=== PATIENT | female | born 1935 | race Caucasian/White ===

== ENCOUNTER 2016-08-16 14:32 | Outpatient (RCR) | payer MEDICARE ==
[2016-08-16 14:09] LABS: BASOPHILS % (AUTO) 1 % (0-10); EOSINOPHILS # (AUTO) 0.4 10^3/uL (0.0-0.3); EOSINOPHILS % (AUTO) 6 % (0-10); LYMPHOCYTES # (AUTO) 1.1 X 10^3 (1.0-4.0); LYMPHOCYTES % (AUTO) 16 % (12-44); MEAN CORPUSCULAR HEMOGLOBIN 28 PG (25-34); MEAN CORPUSCULAR HGB CONC 32 G/DL (32-36); MEAN CORPUSCULAR VOLUME 90 FL (80-99); MEAN PLATELET VOLUME 10.2 FL (7.4-10.4); MONOCYTES # (AUTO) 0.8 X 10^3 (0.0-1.0); MONOCYTES % (AUTO) 11 % (0-12); NEUTROPHILS # (AUTO) 4.5 X 10^3 (1.8-7.8); NEUTROPHILS % (AUTO) 66 % (42-75); PLATELET COUNT 269 10^3/uL (130-400); RED BLOOD COUNT 3.77 10^6/uL (4.35-5.85); RED CELL DISTRIBUTION WIDTH 14.5 % (10.0-14.5); WHITE BLOOD COUNT 6.7 10^3/uL (4.3-11.0)
[2016-08-16 14:31] LABS: ALANINE AMINOTRANSFERASE 11 U/L (0-55); ALBUMIN 3.8 G/DL (3.2-4.5); ANION GAP 9 MMOL/L (5-14); ASPARTATE AMINO TRANSFERASE 16 U/L (5-34); BILIRUBIN,TOTAL 0.3 MG/DL (0.1-1.0); BLOOD UREA NITROGEN 18 MG/DL (7-18); BUN/CREATININE RATIO 25; CALCIUM 9.7 MG/DL (8.5-10.1); CARBON DIOXIDE 24 MMOL/L (21-32); CHLORIDE 109 MMOL/L (98-107); CREATININE SERUM 0.71 MG/DL (0.60-1.30); GFR ESTIMATED > 60; GLUCOSE 108 MG/DL (70-105); POTASSIUM 4.1 MMOL/L (3.6-5.0); SODIUM 142 MMOL/L (135-145); TOTAL PROTEIN 6.8 G/DL (6.4-8.2)
[~2016-08-16 14:32] MED LIST: ASPI-875 PO; ASPI325T32 PO; CALCIUM; CHOL5000 PO; D50KC PO; DENOSUMAB 60 MG/1 ML (PROLIA) CANCER CTR SQ SCH; LEVO125T PO; LISINOPRIL/HCTZ; LVT.112T PO; OMEP20CA12 PO; SERT100T8 PO; SULI200T4 PO; TAMO20TA2 PO; TERI202.4P SQ; VIT D PO; VIT D3 PO
--- OUTSIDE RECORDS SUMMARY | 2016-08-16 14:35 | XMS REPORT | Continuity of Care Document ---
Author Author [facility] Organization [facility] Address Unknown Phone Unavailable Care Team Providers Care Lead Housekeeper Name Role Phone DELONTE MALIN DO PCP Insurance Providers Payer Name Policy Number Subscriber Name Relationship [employer] [place] [id number] Gideon Barnett 17 Self / Same As Patient Advance Directives Directive Response Recorded Date/Time Advance Directives No 10/22/13 4:32pm Health Care Power of Electronic Sales And Service Technician No 10/22/13 4:32pm Organ Donor No 10/22/13 4:32pm Problems Medical Problems Problem Onset Date Status LOWER GASTROINTESTINAL BLEED Unknown Active Medications Medication Dose Route Sig Days/Qty Instructions Order Date Discontinued Date Status Tamoxifen Citrate 20 Mg PO DAILY 01/22/12 10/22/13 Discontinued Aspirin 325 Mg PO DAILY 01/22/12 10/22/13 Discontinued Levothyroxine Sodium 1 Each PO DAILY 01/22/12 10/22/13 Discontinued Sulindac 200 Mg PO DAILY 01/22/12 10/26/13 Discontinued Teriparatide 2.4 Ml SQ DAILY 01/22/12 10/22/13 Discontinued [Calcium] 1,200 TWICE A DAY 01/22/12 10/22/13 Discontinued [Vit D] 5,000 Units PO DIRECTED 01/22/12 10/22/13 Discontinued [Vit D3] 5,000 Units PO 01/22/12 10/22/13 Discontinued Aspirin 81 Mg PO DAILY 10/22/13 10/26/13 Discontinued Levothyroxine Sodium (Levothroid) 112 Mcg PO DAILY 02/13/14 Active Omeprazole 20 Mg PO DAILY 10/22/13 Active Ergocalciferol 50,000 Units PO Sundays10/22/13 Active Sertraline Hcl 50 Mg PO DAILY TAKES 1/2 (100MG) TABLET DAILY 10/22/13 Active Cholecalciferol 5,000 Unit PO DAILY 10/22/13 Active Social History Social History Problem Response Recorded Date/Time Alcohol Use Denies Use 10/22/2013 3:51pm Recreational Drug Use No 10/22/2013 3:51pm Recent Foreign Travel No 10/22/2013 3:51pm Recent Infectious Disease Exposure No 10/22/2013 3:51pm Hospitalization with Isolation Denies 10/26/2013 1:10pm Hospital Discharge Instructions No hospital discharge instructions. Plan of Care No plan of care. Functional Status No functional status results. Allergies, Adverse Reactions, Alerts Allergen Type Severity Reaction Status Last Updated Penicillins ([id number]) Allergy Active 06/28/10 lisinopril ([id number]) Allergy Active 06/28/10 sulfamethoxazole ([id number]) Allergy Active 06/28/10 Trimethoprim Allergy Active 06/28/10 Immunizations Name Given Type Date of Pneumonia Vaccine 06/09/10 Historical Date of Influenza Vaccine 08/10/13 Historical Vital Signs No known vital signs results. Results Test Source Date Result Interp. Ref. Range Comments Activated Partial Thromboplast Time June 28, 2010 10:40am 55 SEC H 24 -35 Alanine Aminotransferase (ALT/SGPT) January 13, 2014 8:59am 31 U/L N 30-65 Albumin January 13, 2014 8:59am 3.4 G/DL N 3.4-5.0 Alkaline Phosphatase January 13, 2014 8:59am 88 U/L N 50-136 Aspartate Amino Transf (AST/SGOT) January 13, 2014 8:59am 18 U/L N 15-37 BUN/Creatinine Ratio January 13, 2014 8:59am 28 - Basophils # (Auto) January 13, 2014 8:59am 0.0 10^3/uL N 0.0-0.1 Basophils (%) (Auto) January 13, 2014 8:59am 1 % N 0-10 Blood Urea Nitrogen January 13, 2014 8:59am 22 MG/DL H 7-18 C-Reactive Protein July 05, 2011 2:02pm 0.5 MG/DL N 0.2-0.9 CA 27.29 May 29, 2012 1:17pm 21.2 U/ML - Calcium Level January 13, 2014 8:59am 8.9 MG/DL N 8.5-10.1 Carbon Dioxide Level January 13, 2014 8:59am 28 MMOL/L N 21-32 Chloride Level January 13, 2014 8:59am 107 MMOL/L N 101-110 Creatinine January 13, 2014 8:59am 0.8 MG/DL N 0.6-1.3 Eosinophils # (Auto) January 13, 2014 8:59am 0.5 10^3/uL H 0.0-0.3 Eosinophils (%) (Auto) January 13, 2014 8:59am 8 % N 0-10 Erythrocyte Sedimentation Rate July 05, 2011 2:02pm 38 MM/HR H 0-30 Ferritin January 13, 2014 8:59am 77 NG/ML - Glucose Level January 13, 2014 8:59am 77 MG/DL N 74-106 Hematocrit January 13, 2014 8:59am 40 % N 35-52 Hemoglobin January 13, 2014 8:59am 13.1 G/DL N 11.5-16.0 Iron Level December 06, 2011 2:13pm 26 L UG/DL - Lymphocytes # (Auto) January 13, 2014 8:59am 1.1 X 10^3 N 1.0-4.0 Lymphocytes (%) (Auto) January 13, 2014 8:59am 17 % N 12-44 Mean Corpuscular Hemoglobin January 13, 2014 8:59am 30 PG N 25-34 Mean Corpuscular Hemoglobin Concent January 13, 2014 8:59am 33 G/DL N 32-36 Mean Corpuscular Volume January 13, 2014 8:59am 90 FL N 80-99 Mean Platelet Volume January 13, 2014 8:59am 10.3 FL N 7.4-10.4 Monocytes # (Auto) January 13, 2014 8:59am 0.8 X 10^3 N 0.0-1.0 Monocytes (%) (Auto) January 13, 2014 8:59am 13 % H 0-12 Neutrophils # (Auto) January 13, 2014 8:59am 3.9 X 10^3 N 1.8-7.8 Neutrophils (%) (Auto) January 13, 2014 8:59am 62 % N 42-75 Platelet Count January 13, 2014 8:59am 227 10^3/uL N 130-400 Potassium Level January 13, 2014 8:59am 4.3 MMOL/L N 3.6-5.0 Prothromb Time International Ratio June 24, 2010 5:50am 2.3 H 0.8- 1.4 INTERPRETIVE DATASUGGESTED THERAPEUTIC RANGE FOR INR'S : VENOUS THROMBOSIS, PULMONARY EMBOLISM, OR PREVENTION OF SYSTEMIC EMBOLISM (EG. IN ATRIAL FIBRILLATION): 2.0 - 3.0 MECHANICAL PROSTHETIC HEART VALVES: 2.5 - 3.5* *NOTE: INR'S UP TO 4.5 MAY BE NECESSARY IN SELECTED GROUPS OF HIGH RISK PATIENTS. [employer] CONSENSUS CONFERENCE ON ANTITHROMBOTIC THERAPY (2000). Prothrombin Time June 24, 2010 5:50am 25.0 SEC H 12.2-14.7 FAX RESULTS TO [facility] [phone] Rapid Plasma Reagin June 28, 2010 10:40am NR - Red Blood Count January 13, 2014 8:59am 4.38 10^6/uL N 4.35-5.85 Red Cell Distribution Width January 13, 2014 8:59am 15.6 % H 10.0-14.5 Sodium Level January 13, 2014 8:59am 142 MMOL/L N 135-145 Thyroid Stimulating Hormone (TSH) January 13, 2014 8:59am 27.92 UIU/ML H 0.34-5.60 Total Bilirubin January 13, 2014 8:59am 0.5 MG/DL N 0.0-1.0 Total Iron Binding Capacity December 06, 2011 2:13pm 378 UG/DL - Total Protein January 13, 2014 8:59am 7.3 G/DL N 6.4-8.2 Transferrin % Saturation December 06, 2011 2:13pm 7 L % - Urine Bacteria June 28, 2010 1:02pm MODERATE H - Has specimen been collected/obtained? YSpecimen Description CLEAN CATCH Urine Bilirubin June 28, 2010 1:02pm NEGATIVE - Has specimen been collected/obtained? YSpecimen Description CLEAN CATCH Urine Casts June 28, 2010 1:02pm NONE - Has specimen been collected/obtained? YSpecimen Description CLEAN CATCH Urine Clarity June 28, 2010 1:02pm SLIGHTLY CLOUDY - Has specimen been collected/obtained? YSpecimen Description CLEAN CATCH Urine Color June 28, 2010 1:02pm YELLOW - Has specimen been collected/obtained? YSpecimen Description CLEAN CATCH Urine Crystals June 28, 2010 1:02pm NONE - Has specimen been collected/obtained? YSpecimen Description CLEAN CATCH Urine Culture Indicated June 28, 2010 1:02pm YES - Has specimen been collected/obtained? YSpecimen Description CLEAN CATCH Urine Glucose (UA) June 28, 2010 1:02pm NEGATIVE - Has specimen been collected/obtained? YSpecimen Description CLEAN CATCH Urine Ketones June 28, 2010 1:02pm NEGATIVE - Has specimen been collected/obtained? YSpecimen Description CLEAN CATCH Urine Leukocyte Esterase June 28, 2010 1:02pm 1+ H - Has specimen been collected/obtained? YSpecimen Description CLEAN CATCH Urine Mucus June 28, 2010 1:02pm NEGATIVE - Has specimen been collected/obtained? YSpecimen Description CLEAN CATCH Urine Nitrite June 28, 2010 1:02pm POSITIVE H - Has specimen been collected/obtained? YSpecimen Description CLEAN CATCH Urine Protein June 28, 2010 1:02pm NEGATIVE - Has specimen been collected/obtained? YSpecimen Description CLEAN CATCH Urine RBC June 28, 2010 1:02pm NONE /HPF - Has specimen been collected/obtained? YSpecimen Description CLEAN CATCH Urine Specific Carrier June 28, 2010 1:02pm 1.020 - Has specimen been collected/obtained? YSpecimen Description CLEAN CATCH Urine Urobilinogen June 28, 2010 1:02pm NORMAL MG/DL - Has specimen been collected/obtained? YSpecimen Description CLEAN CATCH Urine WBC June 28, 2010 1:02pm TNTC /HPF H - Has specimen been collected/obtained? YSpecimen Description CLEAN CATCH Urine pH June 28, 2010 1:02pm 5.0 - Has specimen been collected/ obtained? YSpecimen Description CLEAN CATCH Vitamin D 1,25-Dihydroxy November 30, 2010 10:45am 77 H PG/ML - This test was developed and its performance characteristicsdetermined by [facility]. The U.S. Food and Drug Administration has not approved or cleared this test; however, FDA clearance or approval is not currently required for clinical use. The results are not intended to be used as the sole means for clinical diagnosis or patient management decisions. TEST INFORMATION: VITAMIN D, 1,25-Dihydroxy This test is primarily indicated during patient evaluation for hypercalcemia and renal failure. A normal result does not rule out Vitamin D deficiency. The recommended test for diagnosing Vitamin D deficiency is Vitamin D 25-hydroxy ([id number]). Performed by [facility], [facility] [place] [address] www.[email or web address], Jenelle Chaudhary MD - Lab. Director Vitamin D 25-Hydroxy July 05, 2011 2:02pm 37 NG/ML - White Blood Count January 13, 2014 8:59am 6.3 10^3/uL N 4.3-11.0 Lab Scanned Report October 27, 2013 1:03pm Transfusion Reaction Form [id number] - Estimat Glomerular Filtration Rate January 13, 2014 8:59am > 60 - GFR INTERPRETIVE DATA UNITS FOR ESTIMATED GFR (eGFR): mL/min/1.73 M2 REFERENCE RANGE FOR ESTIMATED GFR (eGFR) eGFR NORMAL eGFR >60 MODERATELY DECREASED eGFR 30-59 SEVERLY DECREASED eGFR 15-29 KIDNEY FAILURE <15 (OR DIALYSIS) Urine RBC (Auto) June 28, 2010 1:02pm 1+ H - Has specimen been collected/obtained? YSpecimen Description CLEAN CATCH MRSA Screen Nasal June 16, 2012 9:45am MRSA not isolated Urine Culture Urine-Clean Catch June 28, 2010 1:02pm Escherichia Coli Procedures No known history of procedures. Encounters Encounter Location Date/Time Discharged Recurring Via [facility] 03/10/14 9:41am
== END 2016-11-14 | disposition home or self-care (01) ==
LOC: ONC 14:32
PROVIDERS: ATTEND Internal Medicine Hematology & Oncology
DX: Z08 Encounter for follow-up examination after completed treatment for malignant neoplasm (principal); Z85.3 Personal history of malignant neoplasm of breast; M81.0 Age-related osteoporosis without current pathological fracture; D50.0 Iron deficiency anemia secondary to blood loss (chronic); K57.92 Diverticulitis of intestine, part unspecified, without perforation or abscess without bleeding; Q27.30 Arteriovenous malformation, site unspecified; K12.1 Other forms of stomatitis; Z79.899 Other long term (current) drug therapy; Z92.3 Personal history of irradiation
CPT/HCPCS: 36415; 80053; 82728; 85025; 96372; 99213

== ENCOUNTER 2017-03-27 14:53 | Outpatient (RCR) | payer MEDICARE ==
[2017-02-22 10:58] LABS: BASOPHILS % (AUTO) 0 % (0-10); EOSINOPHILS # (AUTO) 0.4 10^3/uL (0.0-0.3); EOSINOPHILS % (AUTO) 6 % (0-10); LYMPHOCYTES # (AUTO) 1.3 X 10^3 (1.0-4.0); LYMPHOCYTES % (AUTO) 18 % (12-44); MEAN CORPUSCULAR HEMOGLOBIN 26 PG (25-34); MEAN CORPUSCULAR HGB CONC 31 G/DL (32-36); MEAN CORPUSCULAR VOLUME 85 FL (80-99); MEAN PLATELET VOLUME 10.9 FL (7.4-10.4); MONOCYTES # (AUTO) 0.7 X 10^3 (0.0-1.0); MONOCYTES % (AUTO) 10 % (0-12); NEUTROPHILS # (AUTO) 4.6 X 10^3 (1.8-7.8); NEUTROPHILS % (AUTO) 65 % (42-75); PLATELET COUNT 273 10^3/uL (130-400); RED BLOOD COUNT 3.78 10^6/uL (4.35-5.85); RED CELL DISTRIBUTION WIDTH 14.6 % (10.0-14.5)
[2017-02-22 11:19] LABS: ALANINE AMINOTRANSFERASE 13 U/L (0-55); ALBUMIN 3.9 GM/DL (3.2-4.5); ANION GAP 9 MMOL/L (5-14); ASPARTATE AMINO TRANSFERASE 19 U/L (5-34); BILIRUBIN,TOTAL 0.5 MG/DL (0.1-1.0); BLOOD UREA NITROGEN 21 MG/DL (7-18); BUN/CREATININE RATIO 27 (0-20); CALCIUM 9.8 MG/DL (8.5-10.1); CARBON DIOXIDE 25 MMOL/L (21-32); CHLORIDE 109 MMOL/L (98-107); CREATININE SERUM 0.77 MG/DL (0.60-1.30); GFR ESTIMATED > 60; GLUCOSE 95 MG/DL (70-105); POTASSIUM 4.2 MMOL/L (3.6-5.0); SODIUM 143 MMOL/L (135-145); TOTAL PROTEIN 7.2 GM/DL (6.4-8.2)
[~2017-03-27 14:53] MED LIST changes: +FERRIC CARBOXYMALTOSE (CANCER) 750 MG in NS (IVPB) CANCER CENTER 250 ML IV SCH
[2017-05-14] MEDS ORDERED: ASPI-983 PO (12:09)
[2017-05-14] MEDS ORDERED: LEVO200T6 PO (12:09)
[2017-05-14] MEDS ORDERED: SULI200T4 PO (12:11)
[2017-05-14] MEDS ORDERED: ALBU2.5V4 NEB (12:13)
[2017-05-14] MEDS ORDERED: RT-ALBUINH INH (12:13)
[2017-05-16] MEDS ORDERED: PANT40TA3 PO (12:55)
== END 2017-05-23 | disposition home or self-care (01) ==
LOC: ONC 14:53
PROVIDERS: ATTEND Internal Medicine Hematology & Oncology
DX: Z08 Encounter for follow-up examination after completed treatment for malignant neoplasm (principal); Z85.3 Personal history of malignant neoplasm of breast; M81.0 Age-related osteoporosis without current pathological fracture; D50.0 Iron deficiency anemia secondary to blood loss (chronic); K57.92 Diverticulitis of intestine, part unspecified, without perforation or abscess without bleeding; Q27.30 Arteriovenous malformation, site unspecified; K12.1 Other forms of stomatitis; Z79.899 Other long term (current) drug therapy; Z92.3 Personal history of irradiation
CPT/HCPCS: 36415; 80053; 82728; 85025; 96365; 96372

== ENCOUNTER 2017-05-13 08:58 | Inpatient (IN) | payer MEDICARE ==
[~2017-05-13] VITALS: Ht 160 cm; Wt 58.5 kg
[~2017-05-13 08:58] MED LIST changes: -DENOSUMAB 60 MG/1 ML (PROLIA) CANCER CTR SQ SCH; -FERRIC CARBOXYMALTOSE (CANCER) 750 MG in NS (IVPB) CANCER CENTER 250 ML IV SCH
[2017-05-14] VITALS: BP 138/65
[2017-05-14 00:10] LABS: BASOPHILS % (AUTO) 0 % (0-10); EOSINOPHILS # (AUTO) 0.1 10^3/uL (0.0-0.3); EOSINOPHILS % (AUTO) 1 % (0-10); LYMPHOCYTES # (AUTO) 0.7 X 10^3 (1.0-4.0); LYMPHOCYTES % (AUTO) 6 % (12-44); MEAN CORPUSCULAR HEMOGLOBIN 28 PG (25-34); MEAN CORPUSCULAR HGB CONC 32 G/DL (32-36); MEAN CORPUSCULAR VOLUME 87 FL (80-99); MEAN PLATELET VOLUME 10.4 FL (7.4-10.4); MONOCYTES # (AUTO) 0.7 X 10^3 (0.0-1.0); MONOCYTES % (AUTO) 6 % (0-12); NEUTROPHILS # (AUTO) 10.2 X 10^3 (1.8-7.8); NEUTROPHILS % (AUTO) 87 % (42-75); PLATELET COUNT 214 10^3/uL (130-400); RED BLOOD COUNT 3.79 10^6/uL (4.35-5.85); RED CELL DISTRIBUTION WIDTH 18.2 % (10.0-14.5); WHITE BLOOD COUNT 11.8 10^3/uL (4.3-11.0)
[2017-05-14] MEDS: NS IV 1000 ML 1,000 ML IV SCH ×4 (00:23→20:00)
[2017-05-14 00:29] LABS: BAND NEUTROPHILS 0 %; BASOPHILS % (MANUAL) 0 %; EOSINOPHILS % (MANUAL) 0 %; LYMPHOCYTES % (MANUAL) 5 %; NEUTROPHILS % (MANUAL) 91 %
[2017-05-14 00:30] LABS: ANISOCYTOSIS MODERATE; HYPOCHROMASIA SLIGHT
[2017-05-14 04:00] VITALS: BP 134/61
[2017-05-14 05:34] LABS: BASOPHILS % (AUTO) 0 % (0-10); EOSINOPHILS # (AUTO) 0.2 10^3/uL (0.0-0.3); EOSINOPHILS % (AUTO) 3 % (0-10); LYMPHOCYTES % (AUTO) 15 % (12-44); MEAN CORPUSCULAR HEMOGLOBIN 28 PG (25-34); MEAN CORPUSCULAR HGB CONC 32 G/DL (32-36); MEAN CORPUSCULAR VOLUME 89 FL (80-99); MONOCYTES # (AUTO) 0.6 X 10^3 (0.0-1.0); MONOCYTES % (AUTO) 9 % (0-12); NEUTROPHILS % (AUTO) 73 % (42-75); PLATELET COUNT 186 10^3/uL (130-400); RED CELL DISTRIBUTION WIDTH 18.3 % (10.0-14.5); WHITE BLOOD COUNT 6.9 10^3/uL (4.3-11.0)
[2017-05-14 05:55] LABS: ALANINE AMINOTRANSFERASE 12 U/L (0-55); ALBUMIN 3.1 GM/DL (3.2-4.5); ANION GAP 5 MMOL/L (5-14); ASPARTATE AMINO TRANSFERASE 15 U/L (5-34); BILIRUBIN,TOTAL 0.4 MG/DL (0.1-1.0); BLOOD UREA NITROGEN 20 MG/DL (7-18); BUN/CREATININE RATIO 31; CARBON DIOXIDE 25 MMOL/L (21-32); CHLORIDE 111 MMOL/L (98-107); CREATININE SERUM 0.64 MG/DL (0.60-1.30); GFR ESTIMATED > 60; GLUCOSE 94 MG/DL (70-105); POTASSIUM 4.1 MMOL/L (3.6-5.0); SODIUM 141 MMOL/L (135-145); TOTAL PROTEIN 5.4 GM/DL (6.4-8.2)
[2017-05-14 08:00] VITALS: BP 150/77
[2017-05-14] MEDS: PANTOPRAZOLE 40 MG/10 ML (PROTONIX) VIAL IV SCH ×2 (10:15→20:00)
[2017-05-14 12:06] VITALS: BP 127/57
[2017-05-14] MEDS ORDERED: ASPI-983 PO (12:09)
[2017-05-14] MEDS ORDERED: LEVO200T6 PO (12:09)
[2017-05-14] MEDS ORDERED: SULI200T4 PO (12:11)
[2017-05-14] MEDS ORDERED: RT-ALBUINH INH (12:13)
[2017-05-14] MEDS ORDERED: ALBU2.5V4 NEB (12:13)
[2017-05-14] MEDS ORDERED: RT-ALBUTEROL HFA (VENTOLIN) PER PUFF IH PRN (12:45)
[2017-05-14] MEDS ORDERED: RT-ALBUTEROL SULF 2.5 MG/3 ML PRE-MIX VIAL IH PRN (12:45)
--- NOTE | 2017-05-14 12:48 | History & Physical-Hospitalist ---
HPI History of Present Illness: HPI/Chief Complaint The patient is an 82-year-old white female transferred from [facility] by her physician Dr. Yordy Sevilla. He called me through the hospitalist line reporting that she had appeared with a complaint of bloody stools and a near syncopal episode. His labs showed the hemoglobin to be 12.4. She was accepted in transfer. She was subsequently found to have a hemoglobin of 10.9 last night and 9.1 this morning. She reports urgent stools with bright red blood and clots. She has a past history of diverticular bleed. She takes aspirin but no other blood thinner. Source: patient Exam Limitations: no limitations Date Seen 05/14/17 Time Seen by Provider: 12:44 Attending Physician Erik Jean MD PCP Yordy Sevilla DO Referring Physician Date of Admission May 13, 2017 at 23:10 Home Medications & Allergies Home Medications Reviewed patient Home Medication Reconciliation Form Allergies Allergies Coded Allergies Penicillins (Unverified Allergy, Unknown, 08/16/16) lisinopril (Unverified Allergy, Unknown, 08/16/16) sulfamethoxazole (Unverified Allergy, Unknown, 08/16/16) trimethoprim (Unverified Allergy, Unknown, 08/16/16) Past Mvyalbd-Ykizdz-Tgborw Hx Patient Social History Alcohol Use: Denies Use Recreational Drug Use: No Smoking Status: Never a Smoker Physical Abuse Screen: No Sexual Abuse: No Recent Foreign Travel: No Contact w/other who traveled: No Recent Hopitalizations: No Recent Infectious Disease Expo: No Immunizations Up To Date Date of Pneumonia Vaccine: Jun 09, 2010 Date of Influenza Vaccine: Aug 10, 2013 Seasonal Allergies Seasonal Allergies: No Surgeries Yes Orthopedic Respiratory Yes (ASTHMA) Cardiovascular Yes (STENTS) Neurological No Reproductive System Hx Reproductive Disorders: No Genitourinary Kidney Stones Gastrointestinal Yes (HIATAL HERNIA) Hiatal Hernia Musculoskeletal Yes Arthritis Endocrine History of Endocrine Disorders: Yes Endocrine Disorders: Hypothyroidsim HEENT History of HEENT Disorders: Yes HEENT Disorders: Cataract Cancer Yes Breast Psychosocial History of Psychiatric Problem: No Integumentary History of Skin or Integumenta: No Blood Transfusions History of Blood Disorders: No Family Medical History Family Hx: Cancer 03 FATHER, Onset:50's - 60 Cancer of colon 03 MOTHER, Onset:50's - 60 Cataract 03 FATHER 03 MOTHER, Onset:50's - 60 Review of Systems Constitutional: see HPI EENTM: no symptoms reported Respiratory: short of breath, wheezing, other (uses bronchodilators) Cardiovascular: no symptoms reported Gastrointestinal: see HPI, diarrhea, other (hematochezia) Genitourinary: no symptoms reported Musculoskeletal: no symptoms reported Skin: no symptoms reported Psychiatric/Neurological: No Symptoms Reported Physical Exam Physical Exam Vital Signs Vital Sign - Last 12Hours 05/13/17 05/14/17 22:55 00:00 Temp 97.2 Pulse 103 Resp 18 B/P (MAP) 138/65 Pulse Ox 91 O2 Delivery Nasal Cannula O2 Flow Rate 2.00 Capillary Refill : General Appearance: No Apparent Distress, WD/WN Eyes: Bilateral Eye Normal Inspection HEENT: Normal ENT Inspection Neck: Full Range of Motion, Normal Inspection Respiratory: Chest Non Tender, Lungs Clear, Normal Breath Sounds, No Accessory Muscle Use, No Respiratory Distress Cardiovascular: Regular Rate, Rhythm, No Edema, No Gallop, No JVD, No Murmur, Normal Peripheral Pulses Gastrointestinal: Normal Bowel Sounds, No Organomegaly, Non Tender Back: Normal Inspection, No CVA Tenderness, No Vertebral Tenderness Extremity: Normal Capillary Refill, Normal Inspection, Normal Range of Motion, Non Tender, No Calf Tenderness, No Pedal Edema Neurologic/Psychiatric: Alert, Oriented x3, No Motor/Sensory Deficits, Normal Mood/Affect Skin: Normal Color, Warm/Dry Lymphatic: No Adenopathy Results Results/Procedures Lab Laboratory Tests 05/13/17 23:59 05/14/17 05:13 Assessment/Plan Admission Diagnosis 1.hematochezia. 2.past history of diverticular bleeding. 3.COPD Clinical Quality Measures DVT/VTE Risk/Contraindication: Risk Factor Score Per Nursin RFS Level Per Nursing on Admit: 4+=Very High ERIK JEAN MD May 14, 2017 12:48
[2017-05-14] MEDS: SERTRALINE 50 MG (ZOLOFT) TABLET PO SCH (13:51)
--- NOTE | 2017-05-14 14:57 | Consultation ---
History of Present Illness History of Present Illness Patient Consulted On(rojelio/time) 05/14/17 07:51 Date Seen by Provider: May 14, 2017 Time Seen by Provider: 07:50 History of Present Illness consult requested by dr Wakefield for gi bleed patient 82 year old female who yesterday began having bright red blood in stool. She went to [facility] and evaluated. Found to have + Hemoccult stool and had syncopal episode of about 20-30 minutes. 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 She is not having any abdominal pain. Denies any nausea vomiting fever sweats chills shortness of breath or chest pain. Her blood pressure was reported as 80's systolic. Her Hgb was in the 12 range at [facility]. She had a ct scan abdomen and pelvis which demonstrated adnexal cyst, hiatal hernia, diverticulosis, kidney stone nonobstructing, no acute significant findings. Patient at this time is feeling better, not having any dizziness or weakness at this time. Allergies and Home Medications Allergies Coded Allergies: Penicillins (Unverified Allergy, Unknown, 08/16/16) lisinopril (Unverified Allergy, Unknown, 08/16/16) sulfamethoxazole (Unverified Allergy, Unknown, 08/16/16) trimethoprim (Unverified Allergy, Unknown, 08/16/16) Home Medications Albuterol Sulfate 2.5 Mg/3 Ml Vial.neb, 2.5 MG NEB Q4H PRN for SHORTNESS OF BREATH, (Reported) Albuterol Sulfate 1 Puff Puff, 2 PUFF INH Q4H PRN for SHORTNESS OF BREATH, ( Reported) Aspirin 81 Mg Tablet.dr, 81 MG PO DAILY, (Reported) Cholecalciferol 5,000 Unit Capsule, 5,000 UNIT PO DAILY, (Reported) Levothyroxine Sodium 200 Mcg Tablet, 200 MCG PO DAILY, (Reported) Sertraline Hcl 100 Mg Tablet, 50 MG PO DAILY, (Reported) TAKES 1/2 (100MG) TABLET DAILY Sulindac 200 Mg Tablet, 200 MG PO DAILY, (Reported) Past Zihurjo-Dkqpjm-Gvcqil Hx Patient Social History Alcohol Use: Denies Use Recreational Drug Use: No Smoking Status: Never a Smoker Recent Foreign Travel: No Contact w/Someone Who Travel: No Recent Infectious Disease Expo: No Recent Hopitalizations: No Physical Abuse Screen: No Sexual Abuse: No Immunizations Up To Date Date of Pneumonia Vaccine: Jun 09, 2010 Date of Influenza Vaccine: Aug 10, 2013 Seasonal Allergies Seasonal Allergies: No Surgeries History of Surgeries: Yes Surgeries: Orthopedic Respiratory History of Respiratory Disorde: Yes (ASTHMA) Respiratory Disorders: Pulmonary Embolism Cardiovascular History of Cardiac Disorders: Yes (STENTS) Neurological History of Neurological Disord: No Reproductive System Hx Reproductive Disorders: No Genitourinary Genitourinary Disorders: Kidney Stones Gastrointestinal History of Gastrointestinal Di: Yes (HIATAL HERNIA) Gastrointestinal Disorders: Hiatal Hernia Musculoskeletal History of Musculoskeletal Dis: Yes Musculoskeletal Disorders: Arthritis Endocrine History of Endocrine Disorders: Yes Endocrine Disorders: Hypothyroidsim HEENT History of HEENT Disorders: Yes HEENT Disorders: Cataract Cancer History of Cancer: Yes Cancer: Breast Psychosocial History of Psychiatric Problem: No Integumentary History of Skin or Integumenta: No Blood Transfusions History of Blood Disorders: No Family Medical History Significant Family History: No Pertinent Family Hx Family Medial History: Cancer 03 FATHER, Onset:50's - 60 Cancer of colon 03 MOTHER, Onset:50's - 60 Cataract 03 FATHER 03 MOTHER, Onset:50's - 60 Review of Systems-General Constitutional: see HPI EENTM: no symptoms reported Respiratory: no symptoms reported Cardiovascular: no symptoms reported Gastrointestinal: see HPI Musculoskeletal: no symptoms reported Skin: no symptoms reported Psychiatric/Neurological: No Symptoms Reported Physical Exam-General Problems Physical Exam Vital Signs Vital Sign - Last 12Hours 05/13/17 05/14/17 22:55 00:00 Temp 97.2 Pulse 103 Resp 18 B/P (MAP) 138/65 Pulse Ox 91 O2 Delivery Nasal Cannula O2 Flow Rate 2.00 Capillary Refill : General Appearance: no apparent distress HEENT: normal ENT inspection Neck: supple Respiratory: no respiratory distress, no accessory muscle use Cardiovascular: regular rate, rhythm Gastrointestinal: non tender, soft, no organomegaly, no pulsatile mass Rectal: deferred Back: normal inspection Extremities: normal range of motion, non-tender Neurologic/Psychiatric: alert, normal mood/affect, oriented x 3 Data Review Labs Laboratory Tests 05/13/17 23:59: White Blood Count 11.8H, Red Blood Count 3.79L, Hemoglobin 10.7L, Hematocrit 33L , Mean Corpuscular Volume 87, Mean Corpuscular Hemoglobin 28, Mean Corpuscular Hemoglobin Concent 32, Red Cell Distribution Width 18.2H, Platelet Count 214, Mean Platelet Volume 10.4, Neutrophils (%) (Auto) 87H, Lymphocytes (%) (Auto) 6L , Monocytes (%) (Auto) 6, Eosinophils (%) (Auto) 1, Basophils (%) (Auto) 0, Neutrophils # (Auto) 10.2H, Lymphocytes # (Auto) 0.7L, Monocytes # (Auto) 0.7, Eosinophils # (Auto) 0.1, Basophils # (Auto) 0.0, Neutrophils % (Manual) 91, Lymphocytes % (Manual) 5, Monocytes % (Manual) 4, Eosinophils % (Manual) 0, Basophils % (Manual) 0, Band Neutrophils 0, Hypochromasia SLIGHT, Anisocytosis MODERATE, Elliptocytes SLIGHT 05/14/17 05:13: White Blood Count 6.9, Red Blood Count 3.20L, Hemoglobin 9.1L, Hematocrit 28L, Mean Corpuscular Volume 89, Mean Corpuscular Hemoglobin 28, Mean Corpuscular Hemoglobin Concent 32, Red Cell Distribution Width 18.3H, Platelet Count 186, Mean Platelet Volume 11.0H, Neutrophils (%) (Auto) 73, Lymphocytes (%) (Auto) 15 , Monocytes (%) (Auto) 9, Eosinophils (%) (Auto) 3, Basophils (%) (Auto) 0, Neutrophils # (Auto) 5.0, Lymphocytes # (Auto) 1.0, Monocytes # (Auto) 0.6, Eosinophils # (Auto) 0.2, Basophils # (Auto) 0.0, Sodium Level 141, Potassium Level 4.1, Chloride Level 111H, Carbon Dioxide Level 25, Anion Gap 5, Blood Urea Nitrogen 20H, Creatinine 0.64, Estimat Glomerular Filtration Rate > 60, BUN /Creatinine Ratio 31, Glucose Level 94, Calcium Level 8.0L, Total Bilirubin 0.4 , Aspartate Amino Transf (AST/SGOT) 15, Alanine Aminotransferase (ALT/SGPT) 12, Alkaline Phosphatase 66, Total Protein 5.4L, Albumin 3.1L 05/14/17 11:28: Stool Occult Blood Immunoassay POSITIVEH Assessment/Plan Assessment/Plan Assessment/Plan GI bleed- likely lower. Syncopal episode Anemia secondary to GI bleed Clear liquids follow hgb transfuse prn rbc Protonix Iv fluids Will continue to follow hgb, may need endoscopy to further evaluate. Clinical Quality Measures DVT/VTE Risk/Contraindication: Risk Factor Score Per Nursin RFS Level Per Nursing on Admit: 4+=Very High THERON QUIROZ DO May 14, 2017 14:57
[2017-05-14 15:57] VITALS: BP 148/74
[2017-05-14 18:11] LABS: MEAN PLATELET VOLUME 10.7 FL (7.4-10.4); RED BLOOD COUNT 3.18 10^6/uL (4.35-5.85); RED CELL DISTRIBUTION WIDTH 18.4 % (10.0-14.5); WHITE BLOOD COUNT 7.2 10^3/uL (4.3-11.0)
[2017-05-14 19:51] VITALS: BP 128/57
[2017-05-14] MEDS: ACETAMINOPHEN 500 MG TAB (TYLENOL) PO PRN (21:43)
[2017-05-15] VITALS (12 sets, daily range): BP systolic 134–153; BP diastolic 58–72
[2017-05-15 01:06] LABS: MEAN PLATELET VOLUME 10.8 FL (7.4-10.4); RED BLOOD COUNT 2.64 10^6/uL (4.35-5.85); RED CELL DISTRIBUTION WIDTH 18.4 % (10.0-14.5); WHITE BLOOD COUNT 6.4 10^3/uL (4.3-11.0)
[2017-05-15] MEDS: VITAMIN D3 5,000 UNITS (CHOLECALCIFEROL ) CAPSULE PO SCH (06:19)
[2017-05-15] MEDS: PANTOPRAZOLE 40 MG/10 ML (PROTONIX) VIAL IV SCH ×2 (08:13→20:34)
[2017-05-15] MEDS: SERTRALINE 50 MG (ZOLOFT) TABLET PO SCH (08:13)
[2017-05-15 08:32] LABS: MEAN PLATELET VOLUME 10.8 FL (7.4-10.4); RED BLOOD COUNT 3.78 10^6/uL (4.35-5.85); RED CELL DISTRIBUTION WIDTH 17.4 % (10.0-14.5); WHITE BLOOD COUNT 7.1 10^3/uL (4.3-11.0)
[2017-05-15] MEDS ORDERED: GOLYTELY POWDER 4000 ML BTL PO NR (10:36)
--- NOTE | 2017-05-15 11:02 | Progress Note-Hospitalist ---
Progress Note HPI/CC on Admission The patient is an 82-year-old white female transferred from [facility] by her physician Dr. Yordy Sevilla. He called me through the hospitalist line reporting that she had appeared with a complaint of bloody stools and a near syncopal episode. His labs showed the hemoglobin to be 12.4. She was accepted in transfer. She was subsequently found to have a hemoglobin of 10.9 last night and 9.1 this morning. She reports urgent stools with bright red blood and clots. She has a past history of diverticular bleed. She takes aspirin but no other blood thinner. Progress Notes/Assess & Plan Date Seen 05/15/17 Time Seen by Provider: 10:30 Diagonsis/Assessment & Plan Pt doing better overall Hungry and plans for scopes tomorrow by Dr Wolfe. Denies any pain Had an amount of bright red blood per rectum and melena today in the toilet No cramping noted Receive 2 units of packed red blood cells yesterday without difficulty and hemoglobin stable currently On PPI IV No fever, vital signs stable, pleasant, improved, frail Regular rate and rhythm, clear to auscultation bilaterally but diminished all ojeda and wheezing is noted in the upper lobes No edema Laboratory Tests 05/14/17 18:05 05/15/17 00:42 05/15/17 08:20 Assessment: Acute GI bleed received 2 units of packed red blood cells without difficulties hemoglobin stable currently on PPI IV and scope scheduled for tomorrow History of asthma on inhalers and nebulizer treatments at home we'll restart nebulizer treatments due to wheezing on exam Hypothyroidism Osteoarthritis Plan: Endoscopy tomorrow Monitor hemoglobin Check CMP in morning Home O2 evaluate tomorrow Nebulizer treatments Incentive spirometer DILCIA LAURA DO May 15, 2017 11:02
[2017-05-15 13:46] LABS: MEAN PLATELET VOLUME 10.9 FL (7.4-10.4); RED BLOOD COUNT 3.91 10^6/uL (4.35-5.85); RED CELL DISTRIBUTION WIDTH 17.4 % (10.0-14.5); WHITE BLOOD COUNT 7.4 10^3/uL (4.3-11.0)
[2017-05-15] MEDS: RT-ALBUTEROL/IPRATROPIUM 3 ML (DUONEB) VIAL INH SCH ×3 (14:03→19:45)
[2017-05-15] MEDS: NS IV 1000 ML 1,000 ML IV SCH ×4 (14:57→20:39)
[2017-05-15 18:02] LABS: MEAN PLATELET VOLUME 11.2 FL (7.4-10.4); RED BLOOD COUNT 4.07 10^6/uL (4.35-5.85); RED CELL DISTRIBUTION WIDTH 17.4 % (10.0-14.5); WHITE BLOOD COUNT 7.9 10^3/uL (4.3-11.0)
--- NOTE | 2017-05-15 18:07 | Progress Note ---
Subjective Date Seen by Provider: May 15, 2017 Time Seen by Provider: 08:30 Subjective/Events-last exam Patient feeling well. No new complaints. Still with some bloody bm but less. No syncope. Denies fever sweats chills shortness of breath or chest pain. Following hgb Objective Exam Vital Signs Date Time Temp Pulse Resp B/P (MAP) Pulse Ox O2 Delivery O2 Flow Rate FiO2 05/15/17 16:18 96.9 69 18 138/63 98 Nasal Cannula 2.00 05/15/17 14:54 99 Nasal Cannula 3.00 05/15/17 12:00 98.6 64 18 148/72 Nasal Cannula 2.50 05/15/17 09:00 Nasal Cannula 2.00 05/15/17 08:05 97.9 67 18 134/65 97 Nasal Cannula 2.00 05/15/17 08:00 97.9 67 20 134/65 97 Nasal Cannula 2.50 05/15/17 07:52 Nasal Cannula 3.00 05/15/17 06:10 98.5 70 16 139/70 96 Nasal Cannula 2.00 05/15/17 05:53 98.3 65 18 137/71 100 Nasal Cannula 2.00 05/15/17 05:26 98.3 64 16 153/67 100 Nasal Cannula 2.50 05/15/17 04:00 98.3 62 19 153/67 100 Nasal Cannula 2.50 05/15/17 03:20 99.8 61 16 139/59 100 Nasal Cannula 2.50 05/15/17 02:59 99.6 65 18 141/58 100 Nasal Cannula 2.50 05/15/17 00:00 96.7 76 18 134/58 98 Nasal Cannula 3.00 05/14/17 21:00 Nasal Cannula 4.00 05/14/17 19:51 97.8 72 20 128/57 97 Room Air I & O 05/16/17 07:00 Intake Total 2760 ml Output Total 1050 ml Balance 1710 ml Capillary Refill : Less Than 3 Seconds General Appearance: No Apparent Distress, WD/WN HEENT: Normal ENT Inspection Neck: Full Range of Motion, Normal Inspection Respiratory: Chest Non Tender, Lungs Clear, Normal Breath Sounds, No Accessory Muscle Use, No Respiratory Distress Cardiovascular: Regular Rate, Rhythm, No Edema, No Gallop, No JVD, No Murmur, Normal Peripheral Pulses Gastrointestinal: non tender, soft, no organomegaly, no pulsatile mass Extremity: Normal Capillary Refill, Normal Inspection, Normal Range of Motion, Non Tender, No Calf Tenderness Neurologic/Psychiatric: Alert, Oriented x3, No Motor/Sensory Deficits, Normal Mood/Affect Skin: Normal Color, Warm/Dry Lymphatic: No Adenopathy Results Lab Laboratory Tests 05/15/17 00:42: White Blood Count 6.4, Red Blood Count 2.64L, Hemoglobin 7.4L, Hematocrit 24L, Mean Corpuscular Volume 91, Mean Corpuscular Hemoglobin 28, Mean Corpuscular Hemoglobin Concent 31L, Red Cell Distribution Width 18.4H, Platelet Count 165, Mean Platelet Volume 10.8H 05/15/17 08:20: White Blood Count 7.1, Red Blood Count 3.78L, Hemoglobin 10.9#L, Hematocrit 34L , Mean Corpuscular Volume 89, Mean Corpuscular Hemoglobin 29, Mean Corpuscular Hemoglobin Concent 32, Red Cell Distribution Width 17.4H, Platelet Count 174, Mean Platelet Volume 10.8H 05/15/17 13:39: White Blood Count 7.4, Red Blood Count 3.91L, Hemoglobin 11.4L, Hematocrit 35, Mean Corpuscular Volume 89, Mean Corpuscular Hemoglobin 29, Mean Corpuscular Hemoglobin Concent 33, Red Cell Distribution Width 17.4H, Platelet Count 162, Mean Platelet Volume 10.9H 05/15/17 17:02: Lab Scanned Report Transfusion Reaction Form 05/15/17 17:55: White Blood Count 7.9, Red Blood Count 4.07L, Hemoglobin 11.7, Hematocrit 36, Mean Corpuscular Volume 89, Mean Corpuscular Hemoglobin 29, Mean Corpuscular Hemoglobin Concent 32, Red Cell Distribution Width 17.4H, Platelet Count 170, Mean Platelet Volume 11.2H Assessment/Plan Assessment/Plan Assessment/Plan GI bleed- likely lower. Syncopal episode Anemia secondary to GI bleed prep for egd/colonoscopy tomorrow Clinical Quality Measures DVT/VTE Risk/Contraindication: Risk Factor Score Per Nursin RFS Level Per Nursing on Admit: 4+=Very High THERON QUIROZ DO May 15, 2017 18:07
[2017-05-15] MEDS ORDERED: CALCIUM CARBONATE 500 MG (TUMS) TAB.CHEW PO PRN (20:00)
[2017-05-15] MEDS: ACETAMINOPHEN 500 MG TAB (TYLENOL) PO PRN (22:49)
[2017-05-15] MEDS ORDERED: ONDANSETRON 4 MG/2 ML (SDV) Z0FRAN IVP PRN (23:00)
[2017-05-16] VITALS: BP 150/65
[2017-05-16 00:51] LABS: RED BLOOD COUNT 3.5 10^6/uL (4.35-5.85); WHITE BLOOD COUNT 6.3 10^3/uL (4.3-11.0)
[2017-05-16 00:52] LABS: RED CELL DISTRIBUTION WIDTH 17.1 % (10.0-14.5)
[2017-05-16] MEDS: VITAMIN D3 5,000 UNITS (CHOLECALCIFEROL ) CAPSULE PO SCH (04:30)
[2017-05-16 06:57] LABS: RED BLOOD COUNT 3.59 10^6/uL (4.35-5.85); RED CELL DISTRIBUTION WIDTH 17.1 % (10.0-14.5); WHITE BLOOD COUNT 5.4 10^3/uL (4.3-11.0)
[2017-05-16 07:17] LABS: ALANINE AMINOTRANSFERASE 11 U/L (0-55); ALBUMIN 3.1 GM/DL (3.2-4.5); ANION GAP 9 MMOL/L (5-14); ASPARTATE AMINO TRANSFERASE 16 U/L (5-34); BILIRUBIN,TOTAL 0.6 MG/DL (0.1-1.0); BLOOD UREA NITROGEN 5 MG/DL (7-18); BUN/CREATININE RATIO 10; CALCIUM 7.5 MG/DL (8.5-10.1); CARBON DIOXIDE 22 MMOL/L (21-32); CHLORIDE 113 MMOL/L (98-107); CREATININE SERUM 0.51 MG/DL (0.60-1.30); GFR ESTIMATED > 60; GLUCOSE 82 MG/DL (70-105); POTASSIUM 3.4 MMOL/L (3.6-5.0); SODIUM 144 MMOL/L (135-145); TOTAL PROTEIN 5.4 GM/DL (6.4-8.2)
[2017-05-16 08:00] VITALS: BP 159/66
[2017-05-16] MEDS: RT-ALBUTEROL/IPRATROPIUM 3 ML (DUONEB) VIAL INH SCH (08:11)
--- NOTE | 2017-05-16 09:06 | Progress Note ---
Subjective Date Seen by Provider: May 16, 2017 Time Seen by Provider: 07:55 Subjective/Events-last exam Patient with no new complaints. tolerated bowel prep. hgb slightly decreased from yesterday. no abdominal pain. less bloody bm. denies n/v fever sweats chills shortness of breath or chest pain. Objective Exam Vital Signs Date Time Temp Pulse Resp B/P (MAP) Pulse Ox O2 Delivery O2 Flow Rate FiO2 05/16/17 08:12 93 Room Air 05/16/17 08:07 Room Air 05/16/17 00:00 98.0 70 18 150/65 100 Room Air 05/15/17 20:40 Nasal Cannula 2.00 05/15/17 20:00 97.5 68 18 150/68 100 Nasal Cannula 2.00 05/15/17 19:46 96 Nasal Cannula 3.00 05/15/17 16:18 96.9 69 18 138/63 98 Nasal Cannula 2.00 05/15/17 14:54 99 Nasal Cannula 3.00 05/15/17 12:00 98.6 64 18 148/72 Nasal Cannula 2.50 Capillary Refill : Less Than 3 Seconds General Appearance: No Apparent Distress, WD/WN HEENT: Normal ENT Inspection Neck: Full Range of Motion, Normal Inspection Respiratory: Chest Non Tender, Lungs Clear, Normal Breath Sounds, No Accessory Muscle Use, No Respiratory Distress Cardiovascular: Regular Rate, Rhythm Gastrointestinal: non tender, soft, no organomegaly, no pulsatile mass Extremity: Normal Capillary Refill, Normal Inspection, Normal Range of Motion, Non Tender, No Calf Tenderness, No Pedal Edema Neurologic/Psychiatric: Alert, Oriented x3, No Motor/Sensory Deficits, Normal Mood/Affect Skin: Normal Color, Warm/Dry Lymphatic: No Adenopathy Results Lab Laboratory Tests 05/15/17 13:39: White Blood Count 7.4, Red Blood Count 3.91L, Hemoglobin 11.4L, Hematocrit 35, Mean Corpuscular Volume 89, Mean Corpuscular Hemoglobin 29, Mean Corpuscular Hemoglobin Concent 33, Red Cell Distribution Width 17.4H, Platelet Count 162, Mean Platelet Volume 10.9H 05/15/17 17:02: Lab Scanned Report Transfusion Reaction Form 05/15/17 17:55: White Blood Count 7.9, Red Blood Count 4.07L, Hemoglobin 11.7, Hematocrit 36, Mean Corpuscular Volume 89, Mean Corpuscular Hemoglobin 29, Mean Corpuscular Hemoglobin Concent 32, Red Cell Distribution Width 17.4H, Platelet Count 170, Mean Platelet Volume 11.2H 05/16/17 00:38: White Blood Count 6.3, Red Blood Count 3.50L, Hemoglobin 10.0L, Hematocrit 31L, Mean Corpuscular Volume 88, Mean Corpuscular Hemoglobin 29, Mean Corpuscular Hemoglobin Concent 33, Red Cell Distribution Width 17.1H, Platelet Count 162, Mean Platelet Volume 11.0H 05/16/17 06:35: White Blood Count 5.4, Red Blood Count 3.59L, Hemoglobin 10.3L, Hematocrit 31L, Mean Corpuscular Volume 88, Mean Corpuscular Hemoglobin 29, Mean Corpuscular Hemoglobin Concent 33, Red Cell Distribution Width 17.1H, Platelet Count 167, Mean Platelet Volume 11.0H, Sodium Level 144, Potassium Level 3.4L, Chloride Level 113H, Carbon Dioxide Level 22, Anion Gap 9, Blood Urea Nitrogen 5L, Creatinine 0.51L, Estimat Glomerular Filtration Rate > 60, BUN/Creatinine Ratio 10, Glucose Level 82, Calcium Level 7.5L, Total Bilirubin 0.6, Aspartate Amino Transf (AST/SGOT) 16, Alanine Aminotransferase (ALT/SGPT) 11, Alkaline Phosphatase 58, Total Protein 5.4L, Albumin 3.1L Assessment/Plan Assessment/Plan Assessment/Plan GI bleed- likely lower. Syncopal episode Anemia secondary to GI bleed plan egd and colonoscopy today for further evaluation patient understands all risks and benefits and wishes to proceed. Clinical Quality Measures DVT/VTE Risk/Contraindication: Risk Factor Score Per Nursin RFS Level Per Nursing on Admit: 4+=Very High THERON QUIROZ DO May 16, 2017 09:06
[2017-05-16] MEDS: SERTRALINE 50 MG (ZOLOFT) TABLET PO SCH (09:18)
[2017-05-16] MEDS: POTASSIUM CL 10MEQ/50ML IVPB 50 ML IV SCH ×2 (10:10→11:40)
[2017-05-16] MEDS: PANTOPRAZOLE 40 MG/10 ML (PROTONIX) VIAL IV SCH (10:10)
[2017-05-16] MEDS ORDERED: proPOfol 200 MG/20 ML (DIPRIVAN) VIAL IV ONE (11:50)
--- NOTE | 2017-05-16 12:35 | Progress Note-Post Operative ---
Post-Operative Progess Note Surgeon (s)/Support Associate (s) Surgeon THERON QUIROZ DO Support Associate: na Pre-Operative Diagnosis gi bleed Post-Operative Diagnosis av malformations stomach, hiatal hernia, diverticulosis, no active bleed Procedure & Operative Findings Date of Procedure 05/16/17 Procedure Performed/Findings egd, colonoscopy Anesthesia Type per mda Estimated Blood Loss Estimated blood loss (mL): none Specimens/Packing Specimens Removed na THERON QUIROZ DO May 16, 2017 12:35
[2017-05-16] MEDS ORDERED: HURRICAINE EXT TUBE (BENZOCAINE) XX ONE (12:45)
--- NOTE | 2017-05-16 12:51 | Discharge Summary-Hospitalist ---
Diagnosis/Chief Complaint Date of Admission May 13, 2017 at 23:10 Date of Discharge Discharge Date: May 16, 2017 Admission Diagnosis 1.hematochezia. 2.past history of diverticular bleeding. 3.COPD Discharge Diagnosis Lower GI Bleed Discharge Summary Procedures EGD/Colonoscopy Consultations Dr. Wolfe, surgery Discharge Physical Examination Allergies: Coded Allergies: Penicillins (Unverified Allergy, Unknown, 08/16/16) lisinopril (Unverified Allergy, Unknown, 08/16/16) sulfamethoxazole (Unverified Allergy, Unknown, 08/16/16) trimethoprim (Unverified Allergy, Unknown, 08/16/16) Vitals & I&Os Vital Signs Date Time Temp Pulse Resp B/P (MAP) Pulse Ox O2 Delivery O2 Flow Rate FiO2 05/16/17 08:12 93 Room Air 05/16/17 08:00 98.6 73 18 159/66 05/15/17 20:40 2.00 General Appearance: Alert, Oriented X3, No Acute Distress HEENT: Atraumatic Cardiovascular: Regular Rate, No Murmurs Abdominal: Normal Bowel Sounds, Soft, No Tenderness Extremities: No Edema, Normal Pulses Neuro: Normal Speech Psych/Mental Status: Mental Status NL, Mood NL Hospital Course Ms Rosales is an 82yo CF who was transferred to [facility] due to bright red blood per rectum. She was monitored here with serial H&Hs and her hemoglobin stabilized and her bloody stools resolved. She was then prep for both EGD and colonoscopy and seen in consultation by Dr. Wolfe (surgery). 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 I started her on protonix orally and have held her aspirin for the time being. She was discharged in stable condition to follow up with her PCP in 1 week. I personally called and spoke with her PCPs office about the hospitalization. Labs (last 24 hrs) Laboratory Tests 05/15/17 13:39: White Blood Count 7.4, Red Blood Count 3.91L, Hemoglobin 11.4L, Hematocrit 35, Mean Corpuscular Volume 89, Mean Corpuscular Hemoglobin 29, Mean Corpuscular Hemoglobin Concent 33, Red Cell Distribution Width 17.4H, Platelet Count 162, Mean Platelet Volume 10.9H 05/15/17 17:02: Lab Scanned Report Transfusion Reaction Form 05/15/17 17:55: White Blood Count 7.9, Red Blood Count 4.07L, Hemoglobin 11.7, Hematocrit 36, Mean Corpuscular Volume 89, Mean Corpuscular Hemoglobin 29, Mean Corpuscular Hemoglobin Concent 32, Red Cell Distribution Width 17.4H, Platelet Count 170, Mean Platelet Volume 11.2H 05/16/17 00:38: White Blood Count 6.3, Red Blood Count 3.50L, Hemoglobin 10.0L, Hematocrit 31L, Mean Corpuscular Volume 88, Mean Corpuscular Hemoglobin 29, Mean Corpuscular Hemoglobin Concent 33, Red Cell Distribution Width 17.1H, Platelet Count 162, Mean Platelet Volume 11.0H 05/16/17 06:35: White Blood Count 5.4, Red Blood Count 3.59L, Hemoglobin 10.3L, Hematocrit 31L, Mean Corpuscular Volume 88, Mean Corpuscular Hemoglobin 29, Mean Corpuscular Hemoglobin Concent 33, Red Cell Distribution Width 17.1H, Platelet Count 167, Mean Platelet Volume 11.0H, Sodium Level 144, Potassium Level 3.4L, Chloride Level 113H, Carbon Dioxide Level 22, Anion Gap 9, Blood Urea Nitrogen 5L, Creatinine 0.51L, Estimat Glomerular Filtration Rate > 60, BUN/Creatinine Ratio 10, Glucose Level 82, Calcium Level 7.5L, Total Bilirubin 0.6, Aspartate Amino Transf (AST/SGOT) 16, Alanine Aminotransferase (ALT/SGPT) 11, Alkaline Phosphatase 58, Total Protein 5.4L, Albumin 3.1L Pending Labs Laboratory Tests 05/16/17 06:35: White Blood Count 5.4, Red Blood Count 3.59, Hemoglobin 10.3, Hematocrit 31, Mean Corpuscular Volume 88, Mean Corpuscular Hemoglobin 29, Mean Corpuscular Hemoglobin Concent 33, Red Cell Distribution Width 17.1, Platelet Count 167, Mean Platelet Volume 11.0, Sodium Level 144, Potassium Level 3.4, Chloride Level 113, Carbon Dioxide Level 22, Anion Gap 9, Blood Urea Nitrogen 5, Creatinine 0.51, Estimat Glomerular Filtration Rate > 60, BUN/Creatinine Ratio 10, Glucose Level 82, Calcium Level 7.5, Total Bilirubin 0.6, Aspartate Amino Transf (AST/SGOT) 16, Alanine Aminotransferase (ALT/SGPT) 11, Alkaline Phosphatase 58, Total Protein 5.4, Albumin 3.1 Discussion & Recommendations Please see your PCP in 1 week and return to the ER should your symptoms return or worsen. Discharge Home Medications: Active Scripts Active Pantoprazole Sodium 40 Mg Tablet.dr 40 Mg PO DAILY 30 Days Reported Proair Hfa (Albuterol Sulfate) 1 Puff Puff 2 Puff INH Q4H PRN Albuterol Sulfate 2.5 Mg/3 Ml Vial.neb 2.5 Mg NEB Q4H PRN Sulindac 200 Mg Tablet 200 Mg PO DAILY Aspirin EC (Aspirin) 81 Mg Tablet.dr 81 Mg PO DAILY Levothyroxine Sodium 200 Mcg Tablet 200 Mcg PO DAILY Vitamin D3 (Cholecalciferol) 5,000 Unit Capsule 5,000 Unit PO DAILY Sertraline Hcl 100 Mg Tablet 50 Mg PO DAILY TAKES 1/2 (100MG) TABLET DAILY Instructions to patient/family Please see electronic discharge instructions given to patient. Clinical Quality Measures DVT/VTE Risk/Contraindication: Risk Factor Score Per Nursin RFS Level Per Nursing on Admit: 4+=Very High Copy Copies To 1: ESTELITA Carrizales MD May 16, 2017 12:51
[2017-05-16] MEDS ORDERED: PANT40TA3 PO (12:55)
--- NOTE | 2017-05-16 13:01 | Discharge Instructions ---
Discharge Instructions Discharge Medications New, Converted or Re-Newed RX: Transmitted to Pharmacy Patient Instructions Patient Instructions Please continue to take your medications as written. I have stopped your aspirin until you are able to see your PCP Dr Sevilla and added a medicine to help protect your stomach from the acid in it. I called and discussed this with your PCPs office as well. Activity & Diet Discharge Diet: No Restrictions Activity as Tolerated: Yes Copy Copies To 1: ESTELITA Carrizales MD May 16, 2017 13:01
--- NOTE | 2017-05-16 15:09 | OPERATIVE REPORT ---
DATE OF SERVICE: 05/16/2017 PREOPERATIVE DIAGNOSIS: Gastrointestinal bleed. POSTOPERATIVE DIAGNOSIS: AV malformation of the stomach, hiatal hernia and diverticulosis. No active bleed. PROCEDURE: EGD and colonoscopy. SURGEON: Herman Wolfe DO. ANESTHESIA: Per . ESTIMATED BLOOD LOSS: None. COMPLICATIONS: None. INDICATIONS: The patient is an 82-year-old female who was admitted for GI bleed likely lower in nature. She understands risks and benefits of procedure and is looking for source of bleeding. She understands and wishes to proceed. The patient consent signed on the chart. DESCRIPTION OF PROCEDURE: The patient was taken to the endoscopy suite and placed in left lateral recumbent position. Timeout was performed. Scope was inserted in mouth, down the esophagus, stomach and into the duodenum. There are no polyps, masses or ulcerations within the duodenum. Scope was slowly retracted back where stomach was further insufflated. There are some very small AV malformations present within the stomach, also hiatal hernia present. There is no active bleeding, ulcers or polyps present. Scope was then slowly returned to its normal position, slowly withdrawn back into the distal esophagus which was then slowly withdrawn noting a tortuous esophagus. No active bleeding was present in the upper GI tract that was visualized. Digital rectal exam was performed. There were no palpable pulse, mass or ulcerations. The scope was inserted in the rectum and advanced all the way to the cecum with minimal difficulty. A large amount of diverticulosis was present throughout the entire colon. The cecum had no polyps, masses or ulcerations. Prep was adequate. Scope was then slowly retracted back. There were no polyps, mass or ulcerations within the cecum, ascending, transverse, descending and sigmoid colon. There was no active bleeding within the colon. There was one area of maybe some clot and diverticula that was suspicious in the sigmoid colon, otherwise nothing else present. The scope was continued to be retracted back into the rectum where it was also retroflexed noting no other pathology. Scope was returned to its normal position and slowly withdrawn until completely removed. The patient tolerated the procedure well without any complications. She was taken to the recovery room in stable condition. No active bleeding at this time. We will continue to monitor hemoglobin, start her on clear liquids and advance diet as tolerates if hemoglobin remains stable. Job ID: [id number] DocumentID: [id number] Dictated Date: 05/16/2017 12:38:42 Refrigeration Mechanic Date: 05/16/2017 15:08:46 Dictated By: DO RBENDAN LOVE
--- NOTE | 2017-05-17 09:05 | Physician Query Clarification ---
PQ-Link Manifestation-Etiology Admission/Discharge Admission Date: May 13, 2017 at 23:10 Discharge Date: The medical record reflects the following clinical scenario: History/Risk Factors: Hx AVM stomach and Diverticulosis Clinical Findings: hematochezia, hgb dropping 10.7>7.4 Treatment: transfused 2 U PRBC's, EGD and Colonoscopy for etiology of bleed Question: Can you specify if the GI bleed is due to/associated with AVM stomach or Diverticulosis? If yes, please clarify which condition under other explanation. Please document a response below PHYSICIAN RESPONSE Manifestation due to/assoic: Clinically undetermined (no bleeding source found by endoscopy, most likely diverticular bleed which stopped bleeding) In responding to this query, please exercise your independent professional judgment. The purpose of this communication is to more accurately reflect the complexity of your patients condition. The fact that a question is asked does not imply that any particular answer is desired or expected. Thank you for your timely response to this clarification. Requestors name: Britney THIS PHYSICIAN QUERY FORM IS A PERMANENT PART OF THE MEDICAL RECORD BRITNEY REZA May 17, 2017 09:05 THERON QUIROZ DO May 18, 2017 13:40
--- NOTE | 2017-05-17 09:12 | Physician Query Clarification ---
PQ-Further Specificity Admission/Discharge Admission Date: May 13, 2017 at 23:10 Discharge Date: The medical record reflects the following clinical scenario: History/Risk Factors: hx AVM stomach, Hx diverticulosis Clinical Findings: hematochezia, HBG drop 10.7 > 7.4 Treatment: Transfused 2 U PRBC's, EGD and colonoscopy for etiology of GI bleed Question: Can you further specify the acuity of the anemia secondary to GI bleed per the clinical indicators above? Please document below. 1. acute blood loss anemia secondary to GI bleed 2. chronic blood loss anemia secondary to GI bleed 3. Other, with explanation of the clinical findings. 4. Clinically undetermined, no explanation for the clinical findings. Clarification: 1. acute blood loss anemia secondary to GI bleed. PHYSICIAN RESPONSE Can you specify per above: 1 In responding to this query, please exercise your independent professional judgment. The purpose of this communication is to more accurately reflect the complexity of your patients condition. The fact that a question is asked does not imply that any particular answer is desired or expected. Thank you for your timely response to this clarification. Requestors name: Britney THIS PHYSICIAN QUERY FORM IS A PERMANENT PART OF THE MEDICAL RECORD BRITNEY REZA May 17, 2017 09:12 ESTELITA YOUNG MD May 17, 2017 14:34
== END 2017-05-16 17:20 | disposition home or self-care (01) | DRG 378 ==
LOC: PREINTOOBSV 08:58 → 4TH 22:55 → UNDOADMOB 23:10 → UNDOADMIN 23:10 → 4TH 23:10 → OBSVTOIN 05-15 08:25 → UNDODISIN 05-16 17:20 → UNDODISOB 05-16 17:20
PROVIDERS: ADMIT Internal Medicine; ATTEND Internal Medicine
PROC: 0DJD8ZZ Inspection of Lower Intestinal Tract, Via Natural or Artificial Opening Endoscopic (ICD-10-PCS; principal; 2017-05-16 13:00)
PROC: 0DJ08ZZ Inspection of Upper Intestinal Tract, Via Natural or Artificial Opening Endoscopic (ICD-10-PCS; 2017-05-16 13:00)
DX: K57.31 Diverticulosis of large intestine without perforation or abscess with bleeding (principal); D62 Acute posthemorrhagic anemia; Q40.3 Congenital malformation of stomach, unspecified; D50.0 Iron deficiency anemia secondary to blood loss (chronic); J44.9 Chronic obstructive pulmonary disease, unspecified; K44.9 Diaphragmatic hernia without obstruction or gangrene; E03.9 Hypothyroidism, unspecified; M19.90 Unspecified osteoarthritis, unspecified site; Z95.5 Presence of coronary angioplasty implant and graft
CPT/HCPCS: 36415; 80053; 82274; 85007; 85025; 85027; 86850; 86900; 86901; 86920; 94640; 94664; 94760; 94761; G0378

== ENCOUNTER → 2017-09-20 | Outpatient (CLI) | payer MEDICARE ==
[~2017-09-20] MED LIST changes: +ALBU2.5V4 NEB; +ASPI-983 PO; +CATHETER FLUSH 10 ML SYR IV PRN; +LEVO200T6 PO; +PANT40TA3 PO; +RT-ALBUINH INH
--- NOTE | 2017-09-20 12:02 | Diagnostic Imaging Report ---
PROCEDURE: CT chest and abdomen with contrast. TECHNIQUE: Multiple contiguous axial images were obtained through the chest and abdomen after the administration of intravenous contrast. INDICATION: Breast cancer. FINDINGS: CT chest: There are no masses, nodules or infiltrates seen in the lungs. There is a large hiatal hernia. There are surgical yoli in left axilla. There is no axillary lymphadenopathy. There is no hilar or mediastinal lymphadenopathy. There are degenerative changes in the thoracic spine but no appreciable lytic or blastic lesions. In the abdomen the liver appears normal. Gallbladder is present. There is one small calculus in the gallbladder. Pancreas is normal. Spleen is not enlarged. Adrenals and kidneys appear normal. There is large hiatal hernia with most of the stomach herniated above the diaphragm. There is no retroperitoneal or mesenteric lymphadenopathy. There is calcific atherosclerosis of the aorta. There is diverticulosis of the colon. There is no intraperitoneal free air or free fluid. There are degenerative changes in the lumbar spine. IMPRESSION: Large hiatal hernia. Postop changes from partial left mastectomy with left axillary lymph node dissection. There is no CT evidence for metastatic disease. Dictated by: Dictated on workstation # [id number]
--- NOTE | 2017-09-20 16:32 | Diagnostic Imaging Report ---
INDICATION: Breast CA. TECHNIQUE: 25.1 mCi Tc-99m MDP was given IV. Four-hour delayed images. COMPARISON: August 20, 2007. TECHNIQUE: Anterior and posterior whole body imaging as well as lateral views of the thoracic and cervical region. FINDINGS: There is good uptake throughout the skeletal system. There is increased uptake in the planar fashion involving superior endplate of L1 vertebral body, consistent with acute compression fracture. Mild uptake is noted along the posterior elements in the midline at L5 and S1, consistent with degenerative change. There is mild increased uptake in a subtle fashion in the midfemoral shafts bilaterally, consistent with callus formation from healed fractures. There is increased uptake within the knees, consistent with degenerative change. There are no areas of abnormal uptake that would be suspicious for metastatic breast cancer. IMPRESSION: 1. Whole body bone scan showing no evidence of metastatic disease. 2. Planar uptake along the superior endplate of L1, consistent with acute or subacute compression fracture. 3. Activity in the midfemoral shafts, consistent with healing fractures. 4. Advanced degenerative changes noted of the knees bilaterally. Dictated by: Dictated on workstation # [id number]
--- NOTE | 2017-09-20 18:13 | Diagnostic Imaging Report ---
INDICATION: Screening. At this time there are no current complaints. By history, patient has had a lumpectomy on the left. EXAMINATION: Bilateral digital screening mammogram with CAD. The current study was also evaluated with a Computer Aided Detection (CAD) system. COMPARISON: This study was compared to the prior exams of 04/06/2016 and 03/14/2015. FINDINGS: The postsurgical changes involving the left breast, seen on the prior study, are again evident. When compare to the previous study, there does not appear to have been any significant change. There is no primary or secondary sign of malignancy noted. The fibroglandular tissue in both breasts is heterogeneously dense; however, this does limit the sensitivity of this exam. IMPRESSION: There is no evidence for recurrent malignancy in the lumpectomy site on the left. The overall appearance of the breasts has not changed significantly. There is no primary or secondary sign of malignancy noted. ACR BI-RADS Category 1: Negative. Result letter will be mailed to the patient. Note: At least 10% of breast cancer is not imaged by mammography. Dictated by: Dictated on workstation # [id number]
== END ==
LOC: CARD 10:21
PROVIDERS: ATTEND Nurse Practitioner Adult Health
DX: Z12.31 Encounter for screening mammogram for malignant neoplasm of breast (principal); C50.412 Malignant neoplasm of upper-outer quadrant of left female breast; R63.4 Abnormal weight loss; G89.29 Other chronic pain; K44.9 Diaphragmatic hernia without obstruction or gangrene; M17.11 Unilateral primary osteoarthritis, right knee; M17.12 Unilateral primary osteoarthritis, left knee
CPT/HCPCS: 71260; 74160; 77067; 78306

== ENCOUNTER → 2017-11-26 | Outpatient (RCR) | payer MEDICARE ==
[2017-08-28 10:32] LABS: BASOPHILS # (AUTO) 0.1 10^3/uL (0.0-0.1); BASOPHILS % (AUTO) 1 % (0-10); EOSINOPHILS # (AUTO) 0.5 10^3/uL (0.0-0.3); EOSINOPHILS % (AUTO) 7 % (0-10); HEMATOCRIT 39 % (35-52); HEMOGLOBIN 12.9 G/DL (11.5-16.0); LYMPHOCYTES # (AUTO) 1.1 X 10^3 (1.0-4.0); LYMPHOCYTES % (AUTO) 15 % (12-44); MEAN CORPUSCULAR HEMOGLOBIN 29 PG (25-34); MEAN CORPUSCULAR HGB CONC 33 G/DL (32-36); MEAN CORPUSCULAR VOLUME 89 FL (80-99); MEAN PLATELET VOLUME 11.1 FL (7.4-10.4); MONOCYTES # (AUTO) 0.7 X 10^3 (0.0-1.0); MONOCYTES % (AUTO) 9 % (0-12); NEUTROPHILS % (AUTO) 69 % (42-75); PLATELET COUNT 219 10^3/uL (130-400); RED BLOOD COUNT 4.44 10^6/uL (4.35-5.85); RED CELL DISTRIBUTION WIDTH 14.4 % (10.0-14.5); WHITE BLOOD COUNT 7.3 10^3/uL (4.3-11.0)
[2017-08-28 10:56] LABS: ALANINE AMINOTRANSFERASE 16 U/L (0-55); ALKALINE PHOSPHATASE 88 U/L (40-136); BILIRUBIN,TOTAL 0.5 MG/DL (0.1-1.0); BUN/CREATININE RATIO 25; CALCIUM 10.1 MG/DL (8.5-10.1); CARBON DIOXIDE 29 MMOL/L (21-32); CHLORIDE 105 MMOL/L (98-107); CREATININE SERUM 0.69 MG/DL (0.60-1.30); GFR ESTIMATED > 60; GLUCOSE 84 MG/DL (70-105); POTASSIUM 4.1 MMOL/L (3.6-5.0); SODIUM 141 MMOL/L (135-145); TOTAL PROTEIN 7.5 GM/DL (6.4-8.2)
[~2017-11-26] MED LIST changes: -CATHETER FLUSH 10 ML SYR IV PRN
[2017-11-26 11:03] LABS: BASOPHILS % (AUTO) 1 % (0-10); EOSINOPHILS # (AUTO) 0.4 10^3/uL (0.0-0.3); EOSINOPHILS % (AUTO) 5 % (0-10); HEMATOCRIT 36 % (35-52); HEMOGLOBIN 11.6 G/DL (11.5-16.0); LYMPHOCYTES # (AUTO) 0.8 X 10^3 (1.0-4.0); LYMPHOCYTES % (AUTO) 10 % (12-44); MEAN CORPUSCULAR HEMOGLOBIN 29 PG (25-34); MEAN CORPUSCULAR HGB CONC 32 G/DL (32-36); MEAN CORPUSCULAR VOLUME 91 FL (80-99); MEAN PLATELET VOLUME 10.9 FL (7.4-10.4); MONOCYTES # (AUTO) 0.8 X 10^3 (0.0-1.0); MONOCYTES % (AUTO) 10 % (0-12); NEUTROPHILS % (AUTO) 75 % (42-75); PLATELET COUNT 251 10^3/uL (130-400); RED BLOOD COUNT 3.99 10^6/uL (4.35-5.85); RED CELL DISTRIBUTION WIDTH 14.4 % (10.0-14.5); WHITE BLOOD COUNT 8.1 10^3/uL (4.3-11.0)
[2017-11-26 11:22] LABS: ALANINE AMINOTRANSFERASE 12 U/L (0-55); ALBUMIN 3.8 GM/DL (3.2-4.5); ALKALINE PHOSPHATASE 112 U/L (40-136); BILIRUBIN,TOTAL 0.6 MG/DL (0.1-1.0); BUN/CREATININE RATIO 31; CALCIUM 9.6 MG/DL (8.5-10.1); CARBON DIOXIDE 26 MMOL/L (21-32); CHLORIDE 107 MMOL/L (98-107); CREATININE SERUM 0.74 MG/DL (0.60-1.30); GFR ESTIMATED > 60; GLUCOSE 92 MG/DL (70-105); POTASSIUM 4.1 MMOL/L (3.6-5.0); SODIUM 141 MMOL/L (135-145); TOTAL PROTEIN 7.2 GM/DL (6.4-8.2)
== END | disposition home or self-care (01) ==
LOC: ONC 08-28 10:13
PROVIDERS: ATTEND Internal Medicine Hematology & Oncology
DX: Z08 Encounter for follow-up examination after completed treatment for malignant neoplasm (principal); Z85.3 Personal history of malignant neoplasm of breast; M81.0 Age-related osteoporosis without current pathological fracture; D50.0 Iron deficiency anemia secondary to blood loss (chronic); K57.92 Diverticulitis of intestine, part unspecified, without perforation or abscess without bleeding; Q27.30 Arteriovenous malformation, site unspecified; K12.1 Other forms of stomatitis; Z79.899 Other long term (current) drug therapy; Z92.3 Personal history of irradiation
CPT/HCPCS: 36415; 80053; 82306; 82728; 85025; 99213

== ENCOUNTER 2018-02-02 22:07 | Observation (INO) | payer MEDICARE ==
[~2018-02-02] VITALS: Ht 162.6 cm; Wt 59.4 kg
[2018-02-02] MEDS ORDERED: NS IV 1000 ML 1,000 ML IV ONE (23:51)
[2018-02-03] VITALS (21 sets, daily range): BP systolic 116–154; BP diastolic 66–107
[2018-02-03] MEDS ORDERED: APIX5TAB (00:05)
[2018-02-03 00:21] LABS: BASOPHILS % (AUTO) 0 % (0-10); EOSINOPHILS # (AUTO) 0.4 10^3/uL (0.0-0.3); EOSINOPHILS % (AUTO) 5 % (0-10); HEMATOCRIT 30 % (35-52); HEMOGLOBIN 9.3 G/DL (11.5-16.0); LYMPHOCYTES # (AUTO) 1.2 X 10^3 (1.0-4.0); LYMPHOCYTES % (AUTO) 15 % (12-44); MEAN CORPUSCULAR HEMOGLOBIN 28 PG (25-34); MEAN CORPUSCULAR HGB CONC 31 G/DL (32-36); MEAN CORPUSCULAR VOLUME 90 FL (80-99); MONOCYTES # (AUTO) 0.7 X 10^3 (0.0-1.0); MONOCYTES % (AUTO) 8 % (0-12); NEUTROPHILS # (AUTO) 5.8 X 10^3 (1.8-7.8); NEUTROPHILS % (AUTO) 71 % (42-75); PLATELET COUNT 239 10^3/uL (130-400); RED BLOOD COUNT 3.28 10^6/uL (4.35-5.85); RED CELL DISTRIBUTION WIDTH 14.1 % (10.0-14.5); WHITE BLOOD COUNT 8.1 10^3/uL (4.3-11.0)
--- NOTE | 2018-02-03 00:21 | ED GI ---
General Chief Complaint: Rect Problems Stated Complaint: RECTUM BLEEDING Source of Information: Patient Exam Limitations: No Limitations History of Present Illness Date Seen by Provider: February 03, 2018 Time Seen by Provider: 23:50 Initial Comments PT ARRIVES VIA POV FROM HOME C/O RECTAL BLEEDING SINCE THIS AFTERNOON HAS PASSED BLOOD X 3 TODAY, WITH CLOTS. FIRST AND SECOND TIMES WERE DIARRHEA MIXED WITH BLOOD, AND LAST TIME WAS ONLY BLOOD WITH CLOTS--NO STOOL C/O LEFT SIDED ABDOMINAL PAIN NO NAUSEA/VOMITING NO FEVER NO PROBLEMS URINATING HAS BEEN EATING AND DRINKING USUAL, BUT STATES OVERALL SHE DOES NOT HAVE A BIG APPETITE NORMALLY NO DIZZINESS/LIGHTHEADEDNESS--ABLE TO WALK USUAL PT STATES SHE IS ON ELIQUIS--HAS HAD P.E. TWICE IN LAST YEAR, LAST EPISODE WAS 3 -4 MONTHS AGO, AND PRIOR TO THAT WAS A YEAR AGO. PT HAS ALSO HAD SD WITH STENTS X 2 PT HAS HISTORY OF DIVERTICULITIS AND CONSTIPATION HAD NORMAL / HARD, SMALL BM YESTERDAY. TOOK A STOOL SOFTENER THIS AM. ALSO HAS HISTORY OF CHRONIC ANEMIA AND HAS HAD BLOOD TRANSFUSIONS IN THE PAST. HGB 12/04/17 WAS 11.7 PT HAD LOWER GI BLEED 05/2017 AND HAD EGD/COLONOSCOPY AND WAS SUSPECTED THAT SHE WAS BLEEDING FROM DIVERTICULUM AT THAT TIME. SHE HAS ALSO HAD A PREVIOUS DIVERTICULUM BLEED PRIOR TO THAT EPISODE PCP: DR. MALIN IN [place] HEMATOLOGY/ONCOLOGY: DR. BERNARD FARM LABORER: PAULINA LUZ Allergies and Home Medications Allergies Coded Allergies: Penicillins (Unverified Allergy, Unknown, 08/16/16) lisinopril (Unverified Allergy, Unknown, 08/16/16) sulfamethoxazole (Unverified Allergy, Unknown, 08/16/16) trimethoprim (Unverified Allergy, Unknown, 08/16/16) Home Medications Albuterol Sulfate 2.5 Mg/3 Ml Vial.neb, 2.5 MG NEB Q4H PRN for SHORTNESS OF BREATH, (Reported) Albuterol Sulfate 1 Puff Puff, 2 PUFF INH Q4H PRN for SHORTNESS OF BREATH, ( Reported) Cholecalciferol 5,000 Unit Capsule, 5,000 UNIT PO DAILY, (Reported) Levothyroxine Sodium 200 Mcg Tablet, 200 MCG PO DAILY, (Reported) Pantoprazole Sodium 40 Mg Tablet., 40 MG PO DAILY Prescribed by: ESTELITA YOUNG on 05/16/17 3402 Sertraline Hcl 100 Mg Tablet, 50 MG PO DAILY, (Reported) TAKES 1/2 (100MG) TABLET DAILY Sulindac 200 Mg Tablet, 200 MG PO DAILY, (Reported) Patient Home Medication List Home Medication List Reviewed: Yes Review of Systems Constitutional: no symptoms reported; No chills, No diaphoresis, No dizziness, No fever, No malaise, No weakness EENTM: No Symptoms Reported Respiratory: Cough (CHRONIC); Denies Shortness of Air Cardiovascular: No Symptoms Reported Gastrointestinal: See HPI, Abdominal Pain, Constipated, Diarrhea; Denies Nausea , Denies Poor Appetite, Denies Poor Fluid Intake; Rectal Bleeding; Denies Vomiting Genitourinary: No Symptoms Reported Musculoskeletal: no symptoms reported Skin: no symptoms reported Psychiatric/Neurological: No Symptoms Reported Endocrine: No Symptoms Reported Hematologic/Lymphatic: See HPI, Anemia, Blood Clots, Easy Bleeding, Easy Bruising Past Rgmycpu-Yexzsb-Nfstfu Hx Patient Social History Alcohol Use: Denies Use Recreational Drug Use: No Smoking Status: Never a Smoker Recent Hopitalizations: No Immunizations Up To Date Date of Pneumonia Vaccine: Jun 09, 2010 Date of Influenza Vaccine: Aug 10, 2013 Seasonal Allergies Seasonal Allergies: No Past Medical History Surgeries: Yes (CARDIAC CATHS--STENTS X 2; KIDNEY STONE REMOVAL; LEFT BREAST LUMPECTOMY; RIGHT HIP REPLACEMENT; LEFT HIP FX/ORIF) Breast, Cardiac, Coronary Stent, Orthopedic, Renal Respiratory: Yes (O2 AT HS; P.E.'S TWICE IN LAST YEAR--ONCE IN 2016 AND AGAIN EARLY 2017) Asthma, Pneumonia, Chronic Bronchitis, Pulmonary Embolism Cardiac: Yes (STENTS X 2) Coronary Artery Disease, Heart Attack Neurological: No Reproductive Disorders: No GUM MIXER History: Menopausal Genitourinary: Yes Kidney Stones Gastrointestinal: Yes (HIATAL HERNIA) Gastroesophageal Reflux, Gastrointestinal Bleed, Chronic Constipation, Diverticulosis, Hiatal Hernia Musculoskeletal: Yes (HIP FRACTURE, WRIST FRACTURE, VERTEBRAL COMPRESSION FRACTURES) Arthritis, Fractures Endocrine: Yes Hypothyroidsim HEENT: Yes Cataract Cancer: Yes Breast Did You Recieve Any Treatments: Yes (LEFT BREAST LUMPECTOMY + RADIATION 10 YEARS AGO ) What Type of Treatment Did You: Radiation, Surgical Intervention Psychosocial: No Integumentary: No Blood Disorders: Yes (CHRONIC ANEMIA, P.E.'S ) Adverse Reaction/Blood Tranf: No YES--MULTIPLE Family Medical History Cancer 03 FATHER, Onset:50's - 60 Cancer of colon 03 MOTHER, Onset:50's - 60 Cataract 03 FATHER 03 MOTHER, Onset:50's - 60 No Pertinent Family Hx Physical Exam Vital Signs Vital Signs - First Documented 02/02/18 23:46 Pulse 109 Resp 20 B/P (MAP) 161/88 (112) Pulse Ox 94 O2 Delivery Room Air Capillary Refill : General Appearance: WD/WN, no apparent distress, other (AMBULATES ON HER OWN WITHOUT DIFFICULTY) HEENT: PERRL/EOMI Neck: normal inspection Respiratory: normal breath sounds, no respiratory distress, no accessory muscle use Cardiovascular: normal peripheral pulses, no JVD, no murmur, tachycardia (MILD) Gastrointestinal: normal bowel sounds, soft; No distended, No guarding, No rebound; tenderness (DIFFUSE LEFT SIDED ABDOMINAL TENDERNESS-MILD) Extremities: normal range of motion, non-tender, no calf tenderness, normal capillary refill, pedal edema (TRACE BILATERALLY) Back: no CVA tenderness Neurologic/Psychiatric: 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 II-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 tested, no motor/sensory deficits, alert, normal mood/affect, oriented x 3 Skin: normal color, warm/dry Progress/Results/Core Measures Results/Orders Lab Results Laboratory Tests Test 02/03/18 00:00 02/03/18 00:18 Range/Units White Blood Count 8.1 4.3-11.0 10^3/uL Red Blood Count 3.28 L 4.35-5.85 10^6/uL Hemoglobin 9.3 L 11.5-16.0 G/DL Hematocrit 30 L 35-52 % Mean Corpuscular Volume 90 80-99 FL Mean Corpuscular Hemoglobin 28 25-34 PG Mean Corpuscular Hemoglobin Concent 31 L 32-36 G/DL Red Cell Distribution Width 14.1 10.0-14.5 % Platelet Count 239 130-400 10^3/uL Mean Platelet Volume 11.0 H 7.4-10.4 FL Neutrophils (%) (Auto) 71 42-75 % Lymphocytes (%) (Auto) 15 12-44 % Monocytes (%) (Auto) 8 0-12 % Eosinophils (%) (Auto) 5 0-10 % Basophils (%) (Auto) 0 0-10 % Neutrophils # (Auto) 5.8 1.8-7.8 X 10^3 Lymphocytes # (Auto) 1.2 1.0-4.0 X 10^3 Monocytes # (Auto) 0.7 0.0-1.0 X 10^3 Eosinophils # (Auto) 0.4 H 0.0-0.3 10^3/uL Basophils # (Auto) 0.0 0.0-0.1 10^3/uL Prothrombin Time 15.1 H 12.2-14.7 SEC INR Comment 1.2 0.8-1.4 Activated Partial Thromboplast Time 28 24-35 SEC Sodium Level 143 135-145 MMOL/L Potassium Level 4.2 3.6-5.0 MMOL/L Chloride Level 109 H 98-107 MMOL/L Carbon Dioxide Level 23 21-32 MMOL/L Anion Gap 11 5-14 MMOL/L Blood Urea Nitrogen 24 H 7-18 MG/DL Creatinine 0.69 0.60-1.30 MG/DL Estimat Glomerular Filtration Rate > 60 BUN/Creatinine Ratio 35 Glucose Level 103 70-105 MG/DL Calcium Level 9.7 8.5-10.1 MG/DL Total Bilirubin 0.3 0.1-1.0 MG/DL Aspartate Amino Transf (AST/SGOT) 16 5-34 U/L Alanine Aminotransferase (ALT/SGPT) 12 0-55 U/L Alkaline Phosphatase 97 40-136 U/L Total Protein 6.6 6.4-8.2 GM/DL Albumin 3.6 3.2-4.5 GM/DL Urine Color YELLOW Urine Clarity SLIGHTLY CLOUDY Urine pH 6 5-9 Urine Specific [place] 1.020 1.016-1.022 Urine Protein 3+ H NEGATIVE Urine Glucose (UA) NEGATIVE NEGATIVE Urine Ketones NEGATIVE NEGATIVE Urine Nitrite NEGATIVE NEGATIVE Urine Bilirubin NEGATIVE NEGATIVE Urine Urobilinogen NORMAL NORMAL MG/DL Urine Leukocyte Esterase 2+ H NEGATIVE Urine RBC (Auto) 5+ H NEGATIVE Urine RBC TNTC H /HPF Urine WBC 5-10 H /HPF Urine Squamous Epithelial Cells 2-5 /HPF Urine Crystals NONE /LPF Urine Bacteria FEW H /HPF Urine Casts NONE /LPF Urine Mucus LARGE H /LPF Urine Culture Indicated YES My Orders Orders - MELBA SORIANO DO Saline Lock/Iv-Start (02/02/18 23:51) Monitor-Rhythm Ecg Trace Only (02/02/18 23:51) Cbc With Automated Diff (02/02/18 23:51) Comprehensive Metabolic Panel (02/02/18 23:51) Protime With Inr (02/02/18 23:51) Partial Thromboplastin Time (02/02/18 23:51) Ua Culture If Indicated (02/02/18 23:51) Saline Lock/Iv-Start (02/02/18 23:51) Ns Iv 1000 Ml (Sodium Chloride 0.9%) (02/02/18 23:51) Ct Abdomen/Pelvis Wo (02/03/18 00:03) Abdomen, Flat & Upright/Decub (02/03/18 00:03) Urine Culture (02/03/18 00:18) Medications Given in ED Current Medications Medications Dose Ordered Sig/Priti Route Start Time Stop Time Status Last Admin Dose Admin Sodium Chloride 1,000 ml @ 0 mls/hr Q0M ONCE IV 02/02/18 23:51 02/02/18 23:52 DC 02/03/18 00:26 1,000 MLS/HR Vital Signs/I&O 02/02/18 23:46 Pulse 109 Resp 20 B/P (MAP) 161/88 (112) Pulse Ox 94 O2 Delivery Room Air Progress Progress Note : Progress Note 0020--PT PASSED LARGE AMOUNT OF BLOOD PER RECTUM ( GAVE URINE SAMPLE AT SAME TIME ) NO DETERIORATION IN PT'S CONDITION DURING ER STAY Initial ECG Impression Date: February 03, 2018 Initial ECG Impression Time: 01:54 Initial ECG Rate: 112 Initial ECG Rhythm: S.Tach (SINUS ARRHYTHMIA) Diagnostic Imaging Comments CXR--HIATAL HERNIA, NO ACUTE PROCESS ABDOMEN FLAT AND UPRIGHT--NON-SPECIFIC BOWEL GAS, NO ACUTE PROCESS PENDING RADIOLOGIST REVIEWS CT ABDOMEN/PELVIS--NO ACUTE PROCESS, NEARLY ENTIRE STOMACH IN HERNIATED INTO THORAX, + GALLSTONES, BILATERAL NON-OBSTRUCTING NEPHROLITHIASIS, 4.5 CM LEFT ADNEXAL CYSTIC LESION--PROBABLY OVARIAN CYST ( ABNORMAL IN THIS AGE ), MULTILEVEL CHRONIC MILD COMPRESSION FRACTURES OF L1, L2 AND S1 VERTEBRAL BODIES- -PER [facility] VIA FAX @ [phone] Reviewed: Reviewed by Me Departure Communication (Admissions) 3--SPOKE WITH DR. AGUILAR, ADVISES TO ADMIT TO HOSPITALIST AND HE WILL SEE PT IN CONSULT 132--SPOKE WITH DR. JEAN, HOSPITALIST, ACCEPTS PT FOR ADMIT. Impression Primary Impression: Acute lower GI bleeding Additional Impressions: ELIQUIS THERAPY Anemia HISTORY OF DIVERTICULAR DISEASE LEFT ADNEXAL MASS Large hiatal hernia Disposition: ADMITTED INPATIENT Condition: Stable Admissions Decision to Admit Reason: Admit from ER (General) Decision to Admit/Date: February 03, 2018 Time/Decision to Admit Time: 01:30 Departure-Patient Inst. Referrals: DELONTE MALIN DO (PCP/Family) Primary Care Physician MELBA SORIANO DO February 03, 2018 00:21
[2018-02-03 00:26] LABS: BILIRUBIN,URINE NEGATIVE (NEGATIVE); CLARITY,URINE SLIGHTLY CLOUDY; COLOR,URINE YELLOW; GLUCOSE, URINE (UA) NEGATIVE (NEGATIVE); KETONES,URINE NEGATIVE (NEGATIVE); LEUKOCYTE ESTERASE ,URINE 2+ (NEGATIVE); NITRITE,URINE NEGATIVE (NEGATIVE); PH,URINE 6 (5-9); PROTEIN,URINE 3+ (NEGATIVE); UROBILINOGEN,URINE NORMAL (NORMAL)
[2018-02-03 00:29] LABS: INR 1.2 (0.8-1.4); PROTHROMBIN TIME PATIENT 15.1 SEC (12.2-14.7)
[2018-02-03 00:35] LABS: BACTERIA,URINE FEW /HPF; RBC,URINE TNTC /HPF
[2018-02-03 00:39] LABS: BUN/CREATININE RATIO 35; CARBON DIOXIDE 23 MMOL/L (21-32); CHLORIDE 109 MMOL/L (98-107); CREATININE SERUM 0.69 MG/DL (0.60-1.30); POTASSIUM 4.2 MMOL/L (3.6-5.0); SODIUM 143 MMOL/L (135-145)
[2018-02-03 00:40] LABS: ALANINE AMINOTRANSFERASE 12 U/L (0-55); ALBUMIN 3.6 GM/DL (3.2-4.5); ALKALINE PHOSPHATASE 97 U/L (40-136); BILIRUBIN,TOTAL 0.3 MG/DL (0.1-1.0); CALCIUM 9.7 MG/DL (8.5-10.1); GFR ESTIMATED > 60; GLUCOSE 103 MG/DL (70-105); TOTAL PROTEIN 6.6 GM/DL (6.4-8.2)
[2018-02-03] MEDS ORDERED: PANTOPRAZOLE 40 MG/10 ML (PROTONIX) VIAL IV ONE (01:45)
[2018-02-03] MEDS ORDERED: NS IV 1000 ML 1,000 ML ONE (02:30)
[2018-02-03] MEDS ORDERED: D5W 100 ML IVPB 100 ML IV ONE (03:02)
[2018-02-03] MEDS: PANTOPRAZOLE INJECTION 200 MG in D5W 100 ML IVPB 50 ML IV SCH (03:23)
[2018-02-03] MEDS ORDERED: ONDANSETRON 4 MG/2 ML (SDV) Z0FRAN IV PRN (06:00)
[2018-02-03] MEDS: POTASSIUM CL 10MEQ/50ML IVPB 50 ML IV SCH (06:29)
[2018-02-03] MEDS: KCL 20 MEQ TAB (K-DUR) PO SCH (06:29)
[2018-02-03] MEDS: NS IV 1000 ML 1,000 ML IV SCH ×3 (06:29→20:25)
[2018-02-03] MEDS: MAGNESIUM 1 GM/100 ML IVPB 100 ML IV SCH (06:29)
--- NOTE | 2018-02-03 07:01 | Diagnostic Imaging Report ---
PROCEDURE: CT abdomen and pelvis without contrast. TECHNIQUE: Multiple contiguous axial images were obtained through the abdomen and pelvis without the use of intravenous contrast. DATE: 02/03/2018. COMPARISON: CT chest and abdomen 09/20/2017. INDICATION: 83-year-old female, hematuria. History of breast cancer. FINDINGS: There are limitations for evaluation of the abdominal organs, neoplastic processes, abscess, and limited evaluation of the vasculature relating to the lack of intravenous contrast. There are mild linear opacities in the right lower lobe and left lower lobe compatible with atelectasis and/or scarring. The heart is not grossly enlarged. There is no identified pericardial effusion. The liver is normal in size and contour. There are gallstones. The gallbladder is nondistended. There is no pericholecystic fluid or adjacent inflammatory stranding. The main pancreatic duct is not grossly dilated. Limited noncontrast evaluation of the pancreatic parenchyma is unremarkable. The spleen is not enlarged. The adrenal glands are unremarkable. There are several nonobstructing renal stones bilaterally. There is a stone in the right renal pelvis on axial image 22 which measures 10 mm in size. There is no identified ureteral stone. There is no hydronephrosis. The urinary bladder is underdistended and not well evaluated. There is limitation for evaluation of the pelvis given the right hip prosthesis. There is a low-attenuation left adnexal mass on axial image 48 which measures 4.7 x 4.0 cm in size. Internal attenuation is measured at -2 Hounsfield units. The intestinal tract is not distended. There are no findings to suggest acute appendicitis. There is a large hiatal hernia. There is no free intraperitoneal air. There is no drainable fluid collection. There is no free pelvic fluid. There are atherosclerotic calcifications. There is no identified abnormally enlarged lymph node in the abdomen or pelvis which meet CT size criteria for adenopathy. Partially visualized hardware in the left proximal femur. There is a right hip prosthesis. There is a chronic appearing deformity of the left inferior pubic ramus and medial aspect of the left superior pubic ramus. There is a chronic appearing deformity of the right side of the sacrum. There are multilevel degenerative changes of the spine. There is inferior endplate concavity of L2 and wedging of the L1 vertebral body which may relate to compression deformities. There is mild grade 1 retrolisthesis of L2 on L3 with retropulsion of the posterior inferior aspect of L2 vertebral body, the expected posterior vertebral body margin by 4.6 mm. There is mild retropulsion of the posterior superior aspect of the L1 vertebral body by approximately 4 mm as well. There appears to be mild associated bony spinal stenosis at each level. These findings are unchanged since 09/20/2017. IMPRESSION: CT ABDOMEN AND PELVIS. 1. Several nonobstructing renal stones and 10 mm stone in the right renal pelvis. 2. No ureteral stone or hydronephrosis. 3. Left ovarian cystic mass measuring 4.7 x 4.0 cm in size. Recommend dedicated pelvic ultrasound for further assessment. 4. Large hiatal hernia. 5. Cholelithiasis without evidence of acute cholecystitis. 6. Redemonstrated prior compression deformities of L1, L2, and sacral deformity. Dictated by: Dictated on workstation # [id number]
[2018-02-03 07:04] LABS: BASOPHILS % (AUTO) 0 % (0-10); EOSINOPHILS # (AUTO) 0.5 10^3/uL (0.0-0.3); EOSINOPHILS % (AUTO) 7 % (0-10); HEMATOCRIT 27 % (35-52); HEMOGLOBIN 8.4 G/DL (11.5-16.0); LYMPHOCYTES # (AUTO) 1.1 X 10^3 (1.0-4.0); LYMPHOCYTES % (AUTO) 16 % (12-44); MEAN CORPUSCULAR HEMOGLOBIN 28 PG (25-34); MEAN CORPUSCULAR HGB CONC 31 G/DL (32-36); MEAN CORPUSCULAR VOLUME 91 FL (80-99); MEAN PLATELET VOLUME 10.6 FL (7.4-10.4); MONOCYTES # (AUTO) 0.7 X 10^3 (0.0-1.0); MONOCYTES % (AUTO) 10 % (0-12); NEUTROPHILS # (AUTO) 4.6 X 10^3 (1.8-7.8); NEUTROPHILS % (AUTO) 67 % (42-75); PLATELET COUNT 196 10^3/uL (130-400); RED BLOOD COUNT 2.97 10^6/uL (4.35-5.85); RED CELL DISTRIBUTION WIDTH 14.2 % (10.0-14.5); WHITE BLOOD COUNT 6.8 10^3/uL (4.3-11.0)
[2018-02-03 07:23] LABS: ALANINE AMINOTRANSFERASE 9 U/L (0-55); ALBUMIN 3.2 GM/DL (3.2-4.5); ALKALINE PHOSPHATASE 81 U/L (40-136); BILIRUBIN,TOTAL 0.4 MG/DL (0.1-1.0); BUN/CREATININE RATIO 33; CALCIUM 8.8 MG/DL (8.5-10.1); CARBON DIOXIDE 24 MMOL/L (21-32); CHLORIDE 113 MMOL/L (98-107); CREATININE SERUM 0.63 MG/DL (0.60-1.30); GFR ESTIMATED > 60; GLUCOSE 95 MG/DL (70-105); MAGNESIUM 1.8 MG/DL (1.8-2.4); PHOSPHORUS 3.3 MG/DL (2.3-4.7); POTASSIUM 4.1 MMOL/L (3.6-5.0); SODIUM 143 MMOL/L (135-145); TOTAL PROTEIN 5.6 GM/DL (6.4-8.2)
--- NOTE | 2018-02-03 07:29 | Diagnostic Imaging Report ---
INDICATION: GI bleed and hiatal hernia. Comparison made with prior examination 04/29/2016 FINDINGS: There is cardiomegaly. There appears to be a hiatal hernia. There is unchanged scarring in the left lung base. There is no pleural effusion or pneumothorax. Mediastinum is unremarkable. IMPRESSION: Cardiomegaly and hiatal hernia. Unchanged scarring in the left lung base. Dictated by: Dictated on workstation # [id number]
--- NOTE | 2018-02-03 07:32 | Diagnostic Imaging Report ---
EXAMINATION: Abdominal radiographs, upright and supine views. DATE: February 03, 2018. CLINICAL INDICATION: 83-year-old female, hematuria and bloody stool. COMPARISON: CT abdomen and pelvis 02/03/2018 at 0038 hours. COMMENTS: There is a right hip prosthesis. There is partially visualized hardware in the left proximal femur. There is a stone projecting over the right renal shadow measuring up to 13 mm in size. There are subtle nonobstructing right renal stones noted. There are gas-filled segments of bowel which are not grossly distended. There is no identified free intraperitoneal air. There is no identified portal venous gas or pneumatosis. IMPRESSION: 1. Abnormal radiodensities projecting over the right renal shadow likely relating to a nonobstructing right renal stones including stone projecting in the renal pelvis measuring approximately 13 mm in size. Please see separately dictated CT abdomen and pelvis report for more complete description of renal stones present. 2. Unremarkable bowel gas pattern. Dictated by: Dictated on workstation # [id number]
[2018-02-03] MEDS: RT-ALBUTEROL SULF 2.5 MG/3 ML PRE-MIX VIAL INH PRN ×2 (09:26→18:59)
--- NOTE | 2018-02-03 11:32 | Consultation ---
History of Present Illness History of Present Illness Patient Consulted On(rojelio/time) 02/03/18 11:27 Time Seen by Provider: 10:07 History of Present Illness Surgery asked to consult regarding GI bleed and bright red blood per rectum. HPI per ED: PT ARRIVES VIA POV FROM HOME C/O RECTAL BLEEDING SINCE THIS AFTERNOON HAS PASSED BLOOD X 3 TODAY, WITH CLOTS. FIRST AND SECOND TIMES WERE DIARRHEA MIXED WITH BLOOD, AND LAST TIME WAS ONLY BLOOD WITH CLOTS--NO STOOL C/O LEFT SIDED ABDOMINAL PAIN, NO NAUSEA/VOMITING, NO FEVER, NO PROBLEMS URINATING HAS BEEN EATING AND DRINKING USUAL, BUT STATES OVERALL SHE DOES NOT HAVE A BIG APPETITE NORMALLY NO DIZZINESS/LIGHTHEADEDNESS--ABLE TO WALK USUAL PT STATES SHE IS ON ELIQUIS--HAS HAD P.E. TWICE IN LAST YEAR, LAST EPISODE WAS 3 -4 MONTHS AGO, AND PRIOR TO THAT WAS A YEAR AGO. PT HAS ALSO HAD RI WITH STENTS X 2 PT HAS HISTORY OF DIVERTICULITIS AND CONSTIPATION HAD NORMAL / HARD, SMALL BM YESTERDAY. TOOK A STOOL SOFTENER THIS AM. ALSO HAS HISTORY OF CHRONIC ANEMIA AND HAS HAD BLOOD TRANSFUSIONS IN THE PAST. HGB 12/04/17 WAS 11.7 PT HAD LOWER GI BLEED 05/2017 AND HAD EGD/COLONOSCOPY AND WAS SUSPECTED THAT SHE WAS BLEEDING FROM DIVERTICULUM AT THAT TIME. SHE HAS ALSO HAD A PREVIOUS DIVERTICULUM BLEED PRIOR TO THAT EPISODE When seen this morning pt appears very comfortable, no distress. Pt's only complaint is of some left lower abdomen and flank pain. She denies N/V. This am she thinks she "coughed up some green stuff". Pain is minimal, maybe 2 out of 10 on a 1-10 scale. She had another BM this am, much less blood then last night. Nurse states still looked bloody and "smelled bloody". Pt's care is complicated by the fact that she is on Eliquis for PE; just had one in November......pt thinks. Pt also states she just had a work-up for abdominal pain "full work-up with all the tests" last month at [facility], "and was sent home told it was constipation". Pt states the last time she had rectal bleeding was in May 2017. Allergies and Home Medications Allergies Coded Allergies: Penicillins (Unverified Allergy, Unknown, 08/16/16) lisinopril (Unverified Allergy, Unknown, 08/16/16) sulfamethoxazole (Unverified Allergy, Unknown, 08/16/16) trimethoprim (Unverified Allergy, Unknown, 08/16/16) Home Medications Albuterol Sulfate 2.5 Mg/3 Ml Vial.neb, 2.5 MG NEB Q4H PRN for SHORTNESS OF BREATH, (Reported) Albuterol Sulfate 1 Puff Puff, 2 PUFF INH Q4H PRN for SHORTNESS OF BREATH, ( Reported) Cholecalciferol 5,000 Unit Capsule, 5,000 UNIT PO DAILY, (Reported) Levothyroxine Sodium 200 Mcg Tablet, 200 MCG PO DAILY, (Reported) Pantoprazole Sodium 40 Mg Tablet.dr, 40 MG PO DAILY Prescribed by: ESTELITA YOUNG on 05/16/17 1255 Sertraline Hcl 100 Mg Tablet, 50 MG PO DAILY, (Reported) TAKES 1/2 (100MG) TABLET DAILY Sulindac 200 Mg Tablet, 200 MG PO DAILY, (Reported) Patient Home Medication List Home Medication List Reviewed: Yes Past Lgpvcmr-Njdxlh-Qqvmok Hx Patient Social History Alcohol Use: Denies Use Recreational Drug Use: No Smoking Status: Never a Smoker Recent Foreign Travel: No Contact w/Someone Who Travel: No Recent Infectious Disease Expo: No Recent Hopitalizations: No Physical Abuse Screen: No Sexual Abuse: No Immunizations Up To Date Date of Pneumonia Vaccine: Jun 09, 2010 Date of Influenza Vaccine: Aug 10, 2013 Seasonal Allergies Seasonal Allergies: No Surgeries History of Surgeries: Yes Surgeries: Breast, Cardiac, Coronary Stent, Orthopedic, Renal Respiratory History of Respiratory Disorde: Yes (O2 AT HS; P.E.'S TWICE IN LAST YEAR--ONCE IN 2017 AND AGAIN EARLY 2018) Respiratory Disorders: Asthma, Pneumonia, Chronic Bronchitis, Pulmonary Embolism Cardiovascular History of Cardiac Disorders: Yes (STENTS X 2) Cardiac Disorders: Coronary Artery Disease, Heart Attack Neurological History of Neurological Disord: No Reproductive System Hx Reproductive Disorders: No INSOLE AND OUTSOLE PREPARER History: Menopausal Genitourinary History of Genitourinary Disor: Yes Genitourinary Disorders: Kidney Stones Gastrointestinal History of Gastrointestinal Di: Yes (HIATAL HERNIA) Gastrointestinal Disorders: Gastroesophageal Reflux, Gastrointestinal Bleed, Chronic Constipation, Diverticulosis, Hiatal Hernia Musculoskeletal History of Musculoskeletal Dis: Yes (HIP FRACTURE, WRIST FRACTURE, VERTEBRAL COMPRESSION FRACTURES) Musculoskeletal Disorders: Arthritis, Fractures Endocrine History of Endocrine Disorders: Yes Endocrine Disorders: Hypothyroidsim HEENT History of HEENT Disorders: Yes HEENT Disorders: Cataract Cancer History of Cancer: Yes Cancer: Breast Psychosocial History of Psychiatric Problem: No Integumentary History of Skin or Integumenta: No Blood Transfusions History of Blood Disorders: Yes (CHRONIC ANEMIA, P.E.'S ) Adverse Reaction to a Blood Tr: No Family Medical History Significant Family History: Cancer Family Medial History: Cancer 03 FATHER, Onset:50's - 60 Cancer of colon 03 MOTHER, Onset: Cataract 03 FATHER 03 MOTHER, Onset:50 - 60 Review of Systems-General Constitutional: No chills, No diaphoresis; weakness EENTM: hearing loss; No blurred vision, No mouth pain, No mouth swelling, No epistaxis, No throat pain, No throat swelling Respiratory: cough; No dyspnea on exertion, No hemoptysis; phlegm Cardiovascular: No chest pain, No edema, No palpitations Gastrointestinal: abdominal pain (LLQ); No jaundice, No loss of appetite Genitourinary: dysuria, frequency; No hematuria Musculoskeletal: back pain, joint pain, joint swelling, muscle stiffness Skin: No change in color, No change in hair/nails Psychiatric/Neurological: Denies Anxiety, Denies Depressed Other pt is on Eliquis so has easy bruising and bleeding, she also has multiple episodes of PE. Pt denies heat or cold intolerance. Physical Exam-General Problems Physical Exam Vital Signs Vital Signs - First Documented 02/02/18 02/03/18 02/03/18 23:46 01:45 02:35 Temp 97.8 Pulse 109 Resp 20 B/P (MAP) 161/88 (112) Pulse Ox 94 O2 Delivery Room Air O2 Flow Rate 2.00 Capillary Refill : Less Than 3 Seconds General Appearance: WD/WN, no apparent distress, thin Eyes: Bilateral Eye PERRL, Bilateral Eye EOMI HEENT: pharynx normal; No scleral icterus (R), No scleral icterus (L), No pale conjunctivae (R), No pale conjunctivae (L) Neck: non-tender, full range of motion, supple, normal inspection Respiratory: chest non-tender, lungs clear, normal breath sounds, no respiratory distress, no accessory muscle use Cardiovascular: regular rate, rhythm, no edema, no murmur Gastrointestinal: normal bowel sounds, soft, no organomegaly, no pulsatile mass , tenderness (LLQ) Back: no CVA tenderness, no vertebral tenderness Extremities: normal range of motion, non-tender, normal inspection, no pedal edema, no calf tenderness Neurologic/Psychiatric: 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 nml as tested, no motor/sensory deficits, alert, normal mood/affect, oriented x 3 Skin: normal color, warm/dry Lymphatic: no adenopathy (neck, axilla or groin) Data Review Labs Laboratory Tests 02/03/18 00:00: White Blood Count 8.1, Red Blood Count 3.28L, Hemoglobin 9.3L, Hematocrit 30L, Mean Corpuscular Volume 90, Mean Corpuscular Hemoglobin 28, Mean Corpuscular Hemoglobin Concent 31L, Red Cell Distribution Width 14.1, Platelet Count 239, Mean Platelet Volume 11.0H, Neutrophils (%) (Auto) 71, Lymphocytes (%) (Auto) 15 , Monocytes (%) (Auto) 8, Eosinophils (%) (Auto) 5, Basophils (%) (Auto) 0, Neutrophils # (Auto) 5.8, Lymphocytes # (Auto) 1.2, Monocytes # (Auto) 0.7, Eosinophils # (Auto) 0.4H, Basophils # (Auto) 0.0, Prothrombin Time 15.1H, INR Comment 1.2, Activated Partial Thromboplast Time 28, Sodium Level 143, Potassium Level 4.2, Chloride Level 109H, Carbon Dioxide Level 23, Anion Gap 11 , Blood Urea Nitrogen 24H, Creatinine 0.69, Estimat Glomerular Filtration Rate > 60, BUN/Creatinine Ratio 35, Glucose Level 103, Calcium Level 9.7, Total Bilirubin 0.3, Aspartate Amino Transf (AST/SGOT) 16, Alanine Aminotransferase ( ALT/SGPT) 12, Alkaline Phosphatase 97, Total Protein 6.6, Albumin 3.6 02/03/18 00:18: Urine Color YELLOW, Urine Clarity SLIGHTLY CLOUDY, Urine pH 6, Urine Specific [place] 1.020, Urine Protein 3+H, Urine Glucose (UA) NEGATIVE, Urine Ketones NEGATIVE, Urine Nitrite NEGATIVE, Urine Bilirubin NEGATIVE, Urine Urobilinogen NORMAL, Urine Leukocyte Esterase 2+H, Urine RBC (Auto) 5+H, Urine RBC TNTCH, Urine WBC 5-10H, Urine Squamous Epithelial Cells 2-5, Urine Crystals NONE, Urine Bacteria FEWH, Urine Casts NONE, Urine Mucus LARGEH, Urine Culture Indicated YES 02/03/18 06:55: White Blood Count 6.8, Red Blood Count 2.97L, Hemoglobin 8.4L, Hematocrit 27L, Mean Corpuscular Volume 91, Mean Corpuscular Hemoglobin 28, Mean Corpuscular Hemoglobin Concent 31L, Red Cell Distribution Width 14.2, Platelet Count 196, Mean Platelet Volume 10.6H, Neutrophils (%) (Auto) 67, Lymphocytes (%) (Auto) 16 , Monocytes (%) (Auto) 10, Eosinophils (%) (Auto) 7, Basophils (%) (Auto) 0, Neutrophils # (Auto) 4.6, Lymphocytes # (Auto) 1.1, Monocytes # (Auto) 0.7, Eosinophils # (Auto) 0.5H, Basophils # (Auto) 0.0, Sodium Level 143, Potassium Level 4.1, Chloride Level 113H, Carbon Dioxide Level 24, Anion Gap 6, Blood Urea Nitrogen 21H, Creatinine 0.63, Estimat Glomerular Filtration Rate > 60, BUN /Creatinine Ratio 33, Glucose Level 95, Calcium Level 8.8, Total Bilirubin 0.4, Aspartate Amino Transf (AST/SGOT) 12, Alanine Aminotransferase (ALT/SGPT) 9, Alkaline Phosphatase 81, Total Protein 5.6L, Albumin 3.2, Phosphorus Level 3.3, Magnesium Level 1.8 02/03/18 08:02: Stool Occult Blood Immunoassay POSITIVEH Assessment/Plan Assessment/Plan Assessment/Plan 1. GI Bleed 2. Hiatal Hernia 3. Diverticulosis 4. Ovarian Cyst Pt has a GI bleed but unfortunately we do not know where it is coming from. 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 I can't do surgery if we do not see source. I spoke with pt and her daughter for over 45 minutes; going over all their options. 1) Do nothing at all and go home 2) Monitor vitals, check Hemoglobin, if continues to bleed do CTA or Tagged RBC scan 3) Surgery - which really can't be done until we pinpoint a source. Pt did state if she needed surgery she would do it. I also checked last CT and informed pt that Hiatal hernia was seen last time. In addition there is mention of report from [facility] of "adnexal cyst" seen on CT. I think pt may need to check with [facility] regarding any work-up needed regarding this cyst. Will allow pt to start clears; hemoglobin only dropped to 8.4 from 9.3. I will continue to follow along, thank you for this consult. Clinical Quality Measures DVT/VTE Risk/Contraindication: Risk Factor Score Per Nursin RFS Level Per Nursing on Admit: 4+=Very High YONAS AGUILAR DO February 03, 2018 11:32
--- NOTE | 2018-02-03 13:32 | Occ Therapy Progress Note ---
Therapy Progress Note OT order received and chart reviewed. Spoke with nursing. Nursing states that pt. will most likely not need OT. Went to talk with pt. Pt. up in bed. States that she is getting up to the bathroom well, other than having lines and tubes. Pt. does not feel that she has any OT needs at this time. Pt. and nursing are encouraged to let OT know if something comes back up that pt. needs to address or practice before discharge home. 1, visit DC No charge [id number] GILMA HARDIN OT February 03, 2018 13:32
--- NOTE | 2018-02-03 14:02 | History & Physical-Hospitalist ---
History of Present Illness HPI/Chief Complaint The patient is an 83-year-old white female known to me from a previous hospitalization last year. She presented to the emergency room last night after she began to note rectal bleeding earlier in the afternoon. She stated that initially the stools were mixed diarrhea with blood and clots. The third time there were only clots. She has chronic atrial fibrillation and 2 previous episodes of pulmonary emboli. She is on Eliquis despite having had a previous GI bleed. Endoscopy at that time showed no lesions in the upper or lower bowel. The presumption was that she had had diverticular bleeding. She denies any abdominal pain. She states that today she has had no blood in her hemoglobin in August 2017 was 12.9. At presentation yesterday was 9.3. This morning it was 8.4. Date Seen 02/03/18 Time Seen by Provider: 13:57 Attending Physician Erik Jean MD PCP Yordy Sevilla DO Referring Physician Date of Admission February 03, 2018 at 01:30 Home Medications & Allergies Home Medications Reviewed patient Home Medication Reconciliation performed by pharmacy medication reconciliations opto mechanical technician and/or nursing. Patients Allergies have been reviewed. Allergies Allergies Coded Allergies Penicillins (Unverified Allergy, Unknown, 08/16/16) lisinopril (Unverified Allergy, Unknown, 08/16/16) sulfamethoxazole (Unverified Allergy, Unknown, 08/16/16) trimethoprim (Unverified Allergy, Unknown, 08/16/16) Past Evadbgo-Mkoxtw-Mifcae Hx Past Med/Social Hx: Reviewed Nursing Past Med/Soc Hx Patient Social History Alcohol Use: Denies Use Recreational Drug Use: No Smoking Status: Never a Smoker Physical Abuse Screen: No Sexual Abuse: No Recent Foreign Travel: No Contact w/other who traveled: No Recent Hopitalizations: No Recent Infectious Disease Expo: No Immunizations Up To Date Date of Pneumonia Vaccine: Jun 09, 2010 Date of Influenza Vaccine: Aug 10, 2013 Seasonal Allergies Seasonal Allergies: No Past Medical History Surgeries: Breast, Cardiac, Coronary Stent, Orthopedic, Renal Cardiac: Coronary Artery Disease, Heart Attack Reproductive: No Menopausal Genitourinary: Kidney Stones Gastrointestinal: Gastroesophageal Reflux, Gastrointestinal Bleed, Chronic Constipation, Diverticulosis, Hiatal Hernia Musculoskeletal: Arthritis, Fractures Endocrine: Hypothyroidsim HEENT: Cataract Cancer: Breast Did You Recieve Any Treatments: Yes What Type of Treatment Did You: Radiation, Surgical Intervention History of Blood Disorders: Yes (CHRONIC ANEMIA, P.E.'S ) Adverse Reaction to Blood Pozo: No Family History Cancer 03 FATHER, Onset:50's - 60 Cancer of colon 03 MOTHER, Onset:50's - 60 Cataract 03 FATHER 03 MOTHER, Onset:50's - 60 Cancer Review of Systems Constitutional: see HPI EENTM: no symptoms reported Respiratory: no symptoms reported Cardiovascular: no symptoms reported, other (past history of atrial fibrillation plus previous PA and stents 2) Gastrointestinal: see HPI Genitourinary: no symptoms reported Musculoskeletal: no symptoms reported Skin: no symptoms reported Psychiatric/Neurological: No Symptoms Reported Physical Exam Physical Exam Vital Signs Vital Signs - First Documented 02/02/18 02/03/18 02/03/18 23:46 01:45 02:35 Temp 97.8 Pulse 109 Resp 20 B/P (MAP) 161/88 (112) Pulse Ox 94 O2 Delivery Room Air O2 Flow Rate 2.00 Capillary Refill : Less Than 3 Seconds General Appearance: Other (she is alert and oriented and recognizes me) Eyes: Bilateral Eye Normal Inspection HEENT: Normal ENT Inspection Neck: Full Range of Motion, Normal Inspection, Non Tender, Supple, Carotid Bruit Respiratory: Chest Non Tender, Lungs Clear, Normal Breath Sounds, No Accessory Muscle Use, No Respiratory Distress Cardiovascular: Irregularly Irregular Gastrointestinal: Normal Bowel Sounds, No Organomegaly, No Pulsatile Mass, Non Tender, Soft Back: Normal Inspection, No CVA Tenderness, No Vertebral Tenderness Extremity: Normal Capillary Refill, Normal Inspection, Normal Range of Motion, Non Tender, No Calf Tenderness, No Pedal Edema Neurologic/Psychiatric: Alert, Oriented x3, No Motor/Sensory Deficits, Normal Mood/Affect Skin: Normal Color Results Results/Procedures Labs Laboratory Tests 02/03/18 00:00 02/03/18 06:55 Patient resulted labs reviewed. Assessment/Plan Admission Diagnosis 1.GI bleeding most likely colonic. 2.anemia secondary to number 1. 3.chronic atrial fibrillation. 4.past history of pulmonary emboli 2 therefore chronic anticoagulation Admission Status: Inpatient Order (span 2 midnights) Reason for Inpatient Admission: GI bleeding in elderly patient Assessment and Plan The patient reports no blood today. Given age and infirmity plus the need for anticoagulation she will need additional observation and perhaps repeating endoscopy. Clinical Quality Measures DVT/VTE Risk/Contraindication: Risk Factor Score Per Nursin RFS Level Per Nursing on Admit: 4+=Very High ERIK JEAN MD February 03, 2018 14:02
[2018-02-03] MEDS ORDERED: ACETAMINOPHEN 500 MG TAB (TYLENOL) ONE (18:03)
[2018-02-03] MEDS: ACETAMINOPHEN 500 MG TAB (TYLENOL) PO PRN (18:09)
[2018-02-04] VITALS (9 sets, daily range): BP systolic 111–168; BP diastolic 59–92
[2018-02-04] MEDS: ACETAMINOPHEN 500 MG TAB (TYLENOL) PO PRN (01:32)
[2018-02-04] MEDS: PANTOPRAZOLE INJECTION 200 MG in D5W 100 ML IVPB 50 ML IV SCH (02:51)
[2018-02-04 03:34] LABS: BASOPHILS % (AUTO) 0 % (0-10); EOSINOPHILS # (AUTO) 0.5 10^3/uL (0.0-0.3); EOSINOPHILS % (AUTO) 11 % (0-10); HEMATOCRIT 26 % (35-52); LYMPHOCYTES # (AUTO) 0.7 X 10^3 (1.0-4.0); LYMPHOCYTES % (AUTO) 15 % (12-44); MEAN CORPUSCULAR HEMOGLOBIN 29 PG (25-34); MEAN CORPUSCULAR HGB CONC 31 G/DL (32-36); MEAN CORPUSCULAR VOLUME 91 FL (80-99); MEAN PLATELET VOLUME 11.2 FL (7.4-10.4); MONOCYTES # (AUTO) 0.5 X 10^3 (0.0-1.0); MONOCYTES % (AUTO) 11 % (0-12); NEUTROPHILS # (AUTO) 2.9 X 10^3 (1.8-7.8); NEUTROPHILS % (AUTO) 63 % (42-75); PLATELET COUNT 192 10^3/uL (130-400); RED BLOOD COUNT 2.79 10^6/uL (4.35-5.85); WHITE BLOOD COUNT 4.7 10^3/uL (4.3-11.0)
[2018-02-04 04:01] LABS: BUN/CREATININE RATIO 29; CALCIUM 9.2 MG/DL (8.5-10.1); CARBON DIOXIDE 22 MMOL/L (21-32); CHLORIDE 114 MMOL/L (98-107); CREATININE SERUM 0.56 MG/DL (0.60-1.30); GFR ESTIMATED > 60; GLUCOSE 89 MG/DL (70-105); MAGNESIUM 1.5 MG/DL (1.8-2.4); PHOSPHORUS 3.1 MG/DL (2.3-4.7); POTASSIUM 3.6 MMOL/L (3.6-5.0); SODIUM 143 MMOL/L (135-145)
[2018-02-04] MEDS: NS IV 1000 ML 1,000 ML IV SCH (04:54)
[2018-02-04] MEDS: POTASSIUM CL 10MEQ/50ML IVPB 50 ML IV SCH (05:58)
[2018-02-04] MEDS: MAGNESIUM 1 GM/100 ML IVPB 100 ML IV SCH ×2 (05:59)
[2018-02-04] MEDS: KCL 20 MEQ TAB (K-DUR) PO SCH (05:59)
[2018-02-04] MEDS ORDERED: KCL 20 MEQ TAB (K-DUR) PO ONE (07:00)
[2018-02-04] MEDS ORDERED: PANTOPRAZOLE 40 MG (PROTONIX) TAB PO SCH (07:45)
[2018-02-04] MEDS ORDERED: APIX2.5T PO (08:31)
--- NOTE | 2018-02-04 08:40 | Discharge Inst-Simple/Standard ---
Discharge Inst-Standard Discharge Medications New, Converted or Re-Newed RX: Transmitted to Pharmacy Patient Instructions/Follow Up Plan of Care/Instructions/FU: Please continue to take your medications as discussed. Please follow up with Dr Sevilla this week. Activity as Tolerated: Yes Discharge Diet: No Restrictions Return to The Hospital For: Recurrent bleeding, shortness of breath, chest pain, if you feel you are getting worse. ESTELITA YOUNG MD February 04, 2018 8:40 am
--- NOTE | 2018-02-04 08:41 | Discharge Summary-Hospitalist ---
Diagnosis/Chief Complaint Date of Admission February 03, 2018 at 1:30 am Date of Discharge Discharge Date: February 04, 2018 Admission Diagnosis 1.GI bleeding most likely colonic. 2.anemia secondary to number 1. 3.chronic atrial fibrillation. 4.past history of pulmonary emboli 2 therefore chronic anticoagulation Discharge Summary Procedures/Consulations Dr Campbell Discharge Physical Exam Allergies: Coded Allergies: Penicillins (Unverified Allergy, Unknown, 08/16/16) lisinopril (Unverified Allergy, Unknown, 08/16/16) sulfamethoxazole (Unverified Allergy, Unknown, 08/16/16) trimethoprim (Unverified Allergy, Unknown, 08/16/16) Vitals & I&Os Vital Signs Date Time Temp Pulse Resp B/P (MAP) Pulse Ox O2 Delivery O2 Flow Rate FiO2 02/04/18 12:00 Room Air 02/04/18 10:03 99 2.00 02/04/18 08:00 97.9 81 22 146/92 (110) General Appearance: Alert, Oriented X3 Respiratory: Clear to Auscultation Cardiovascular: Regular Rate Hospital Course Pt was admitted for black tarry stools and an acute GI bleed. She was seen and evaluated by Surgery and deemed a poor surgical candidate and her symptoms resolved. Her hemoglobin stabilized and she requested discharge home as she was stable. I discussed with both her and her daughter about the complicated situation given her anticoagulation status. We discussed the risk and benefits of both anticoagulation and going off anticoagulation. Ultimately she decided she would rather be on anticoagulation because she felt she could monitor her bleeding more easily. I called and left a message with Dr Sevilla (her PCP's) RN regarding this hospitalization and this stay. She is to follow up with him this week and with Dr Campbell in 1 week. Labs (last 24 hrs) Laboratory Tests 02/04/18 03:15: White Blood Count 4.7, Red Blood Count 2.79L, Hemoglobin 8.0L, Hematocrit 26L, Mean Corpuscular Volume 91, Mean Corpuscular Hemoglobin 29, Mean Corpuscular Hemoglobin Concent 31L, Red Cell Distribution Width 14.0, Platelet Count 192, Mean Platelet Volume 11.2H, Neutrophils (%) (Auto) 63, Lymphocytes (%) (Auto) 15 , Monocytes (%) (Auto) 11, Eosinophils (%) (Auto) 11H, Basophils (%) (Auto) 0, Neutrophils # (Auto) 2.9, Lymphocytes # (Auto) 0.7L, Monocytes # (Auto) 0.5, Eosinophils # (Auto) 0.5H, Basophils # (Auto) 0.0, Sodium Level 143, Potassium Level 3.6, Chloride Level 114H, Carbon Dioxide Level 22, Anion Gap 7, Blood Urea Nitrogen 16, Creatinine 0.56L, Estimat Glomerular Filtration Rate > 60, BUN /Creatinine Ratio 29, Glucose Level 89, Calcium Level 9.2, Phosphorus Level 3.1 , Magnesium Level 1.5L Microbiology 02/03/18 Urine Culture - Final, Complete See Comments Patient resulted labs reviewed. Pending Labs Discussion & Recommendations Discharge Planning: >30 minutes discharge planning Discharge Home Medications: Active Scripts Active Eliquis (Apixaban) 2.5 Mg Tablet 2.5 Mg PO BID Please start on Saturday 02/10 Pantoprazole Sodium 40 Mg Tablet.dr 40 Mg PO DAILY 30 Days Reported Proair Hfa (Albuterol Sulfate) 1 Puff Puff 2 Puff INH Q4H PRN Albuterol Sulfate 2.5 Mg/3 Ml Vial.neb 2.5 Mg NEB Q4H PRN Levothyroxine Sodium 200 Mcg Tablet 200 Mcg PO DAILY Vitamin D3 (Cholecalciferol) 5,000 Unit Capsule 5,000 Unit PO DAILY Sertraline Hcl 100 Mg Tablet 50 Mg PO DAILY TAKES 1/2 (100MG) TABLET DAILY Instructions to patient/family Please see electronic discharge instructions given to patient. Clinical Quality Measures DVT/VTE Risk/Contraindication: Risk Factor Score Per Nursin RFS Level Per Nursing on Admit: 4+=Very High ESTELITA YOUNG MD February 04, 2018 8:41 am
[2018-02-04] MEDS ORDERED: SERTRALINE HCL 50 MG PO SCH (09:00)
[2018-02-04] MEDS ORDERED: LEVOTHYROXINE 100 MCG (LEVOTHROID) TAB PO SCH (09:00)
[2018-02-04] MEDS ORDERED: SERTRALINE 50 MG (ZOLOFT) TABLET PO SCH (09:00)
[2018-02-04] MEDS ORDERED: NON-FORMULARY MEDICATION 1 EA EA (Levothyroxine Sodium 200 MCG) PO SCH (09:00)
--- NOTE | 2018-02-04 09:14 | Progress Note ---
Subjective Time Seen by Provider: 08:39 Subjective/Events-last exam Pt seen and examined, state some cough and SOB "but think its my blood clots". Pt is not in respiratory distress at all. Pt denies abdominal pain, thinks she is having brown BM now. Review of Systems General: No Chills, No Night Sweats; Fatigue Pulmonary: Cough Cardiovascular: No: Chest Pain, Palpitations Gastrointestinal: No: Nausea, Vomiting, Abdominal Pain Objective Exam Vital Signs Date Time Temp Pulse Resp B/P (MAP) Pulse Ox O2 Delivery O2 Flow Rate FiO2 02/04/18 08:00 Room Air 02/04/18 08:00 97.9 81 22 146/92 (110) 95 Room Air 02/04/18 07:00 86 02/04/18 06:00 60 17 111/76 (88) 99 Nasal Cannula 3.00 02/04/18 05:00 61 17 117/59 (78) 96 Nasal Cannula 3.00 02/04/18 04:00 98.0 02/04/18 04:00 100 Nasal Cannula 2.00 02/04/18 04:00 65 13 129/60 (83) 98 Nasal Cannula 3.00 02/04/18 03:00 85 16 114/69 (84) 97 Nasal Cannula 3.00 02/04/18 02:00 66 13 148/82 (104) 98 Nasal Cannula 3.00 02/04/18 01:00 75 16 135/85 (102) 97 Nasal Cannula 3.00 02/04/18 01:00 75 02/04/18 00:00 84 15 154/87 (109) 97 Nasal Cannula 3.00 02/04/18 00:00 100 Nasal Cannula 2.00 02/04/18 00:00 97.5 02/03/18 21:00 90 15 154/69 (97) 98 Nasal Cannula 3.00 02/03/18 20:00 96.8 87 28 146/68 (94) 98 Nasal Cannula 3.00 02/03/18 20:00 100 Nasal Cannula 2.00 02/03/18 19:00 76 02/03/18 19:00 97 Nasal Cannula 1.00 02/03/18 19:00 76 10 144/78 (100) 97 Nasal Cannula 3.00 02/03/18 18:00 72 13 148/107 (121) 99 Nasal Cannula 1.00 02/03/18 17:00 70 24 116/76 (89) 100 Nasal Cannula 1.00 02/03/18 16:32 97.2 Nasal Cannula 1.00 02/03/18 16:00 100 Nasal Cannula 2.00 02/03/18 16:00 99 29 143/91 (108) 99 Nasal Cannula 2.00 02/03/18 15:00 64 18 142/70 (94) 100 Nasal Cannula 2.00 02/03/18 14:00 92 20 151/101 (118) 97 Nasal Cannula 2.00 02/03/18 13:00 71 14 137/68 (91) 100 Nasal Cannula 2.00 02/03/18 13:00 74 02/03/18 12:00 96.6 109 24 137/84 (101) 96 Nasal Cannula 2.00 02/03/18 12:00 100 Nasal Cannula 2.00 02/03/18 11:00 90 25 149/81 (103) 99 Nasal Cannula 2.00 02/03/18 10:00 80 17 144/73 (96) 99 Nasal Cannula 2.00 02/03/18 09:26 97 Nasal Cannula 2.00 I & O 02/04/18 07:00 Intake Total 3030 ml Output Total 2825 ml Balance 205 ml Capillary Refill : Less Than 3 Seconds General Appearance: No Apparent Distress, Thin HEENT: PERRL/EOMI, Moist Mucous Membranes Neck: Full Range of Motion, Normal Inspection, Non Tender, Supple, Carotid Bruit Respiratory: Chest Non Tender, Lungs Clear, Normal Breath Sounds, No Accessory Muscle Use, No Respiratory Distress Cardiovascular: Regular Rate, Rhythm, Systolic Murmur, Irregularly Irregular Gastrointestinal: normal bowel sounds, soft, no organomegaly, no pulsatile mass , distended (mild, but think this is normal for pt), tenderness (LLQ, very minimal) Extremity: Normal Capillary Refill, Normal Inspection, Normal Range of Motion, Non Tender, No Calf Tenderness, No Pedal Edema Neurologic/Psychiatric: Alert, Oriented x3, No Motor/Sensory Deficits, Normal 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, 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 Norm as Tested Skin: Normal Color, Warm/Dry Results Lab Laboratory Tests 02/04/18 03:15: White Blood Count 4.7, Red Blood Count 2.79L, Hemoglobin 8.0L, Hematocrit 26L, Mean Corpuscular Volume 91, Mean Corpuscular Hemoglobin 29, Mean Corpuscular Hemoglobin Concent 31L, Red Cell Distribution Width 14.0, Platelet Count 192, Mean Platelet Volume 11.2H, Neutrophils (%) (Auto) 63, Lymphocytes (%) (Auto) 15 , Monocytes (%) (Auto) 11, Eosinophils (%) (Auto) 11H, Basophils (%) (Auto) 0, Neutrophils # (Auto) 2.9, Lymphocytes # (Auto) 0.7L, Monocytes # (Auto) 0.5, Eosinophils # (Auto) 0.5H, Basophils # (Auto) 0.0, Sodium Level 143, Potassium Level 3.6, Chloride Level 114H, Carbon Dioxide Level 22, Anion Gap 7, Blood Urea Nitrogen 16, Creatinine 0.56L, Estimat Glomerular Filtration Rate > 60, BUN /Creatinine Ratio 29, Glucose Level 89, Calcium Level 9.2, Phosphorus Level 3.1 , Magnesium Level 1.5L Microbiology 02/03/18 Urine Culture - Preliminary, Resulted Sent To [facility] Assessment/Plan Assessment/Plan Assessment/Plan 1. GI Bleed -seems to have stopped, my guess is it actually stopped first day she came in. 2. Hiatal Hernia 3. Diverticulosis 4. Ovarian Cyst Pt will be started on regular diet and medicine is going to send her home today , I think that is ok. Pt will follow up with me in a week, sooner if she feels weak or has more bleeding. Clinical Quality Measures DVT/VTE Risk/Contraindication: Risk Factor Score Per Nursin RFS Level Per Nursing on Admit: 4+=Very High YONAS AGUILAR DO February 04, 2018 09:14
[2018-02-04] MEDS: RT-ALBUTEROL SULF 2.5 MG/3 ML PRE-MIX VIAL INH PRN (10:02)
--- NOTE | 2018-02-04 12:51 | Diagnostic Imaging Report ---
INDICATION: Anemia. COMPARISON: 02/03/2018 FINDINGS: Upright portable view of the chest is obtained. Heart size is enlarged but unchanged. There is no central venous congestion. There is no pneumothorax or pleural fluid suspected. Some increased density at the left lung base is unchanged likely scarring. No new pulmonary abnormality is suspected. There are postoperative changes of the left axilla. IMPRESSION: No radiographic evidence of an acute cardiopulmonary abnormality. No significant interval change from the prior study. Cardiomegaly and suspected hiatal hernia are again demonstrated. Dictated by: Dictated on workstation # [id number]
== END 2018-02-04 11:02 | disposition home or self-care (01) ==
LOC: EDUNIT# 22:07 → ER 22:08 → ICU 22:09 → UNDOADMIN 02-03 01:30 → UNDODISIN 02-04 14:55
PROVIDERS: ADMIT Internal Medicine; ATTEND Internal Medicine
DX: K92.2 Gastrointestinal hemorrhage, unspecified (principal); D64.9 Anemia, unspecified; I48.2 Chronic atrial fibrillation; K73.0 Chronic persistent hepatitis, not elsewhere classified; K21.9 Gastro-esophageal reflux disease without esophagitis; I25.10 Atherosclerotic heart disease of native coronary artery without angina pectoris; I25.2 Old myocardial infarction; K59.09 Other constipation; K44.9 Diaphragmatic hernia without obstruction or gangrene; Z85.3 Personal history of malignant neoplasm of breast; Z92.3 Personal history of irradiation; E03.9 Hypothyroidism, unspecified; N83.202 Unspecified ovarian cyst, left side; Z86.711 Personal history of pulmonary embolism; Z79.01 Long term (current) use of anticoagulants; Z95.5 Presence of coronary angioplasty implant and graft
CPT/HCPCS: 36415; 71045; 74019; 74176; 80048; 80053; 81000; 82274; 83735; 84100; 85025; 85610; 85730; 87088; 93005; 93041; 94640; 94761; 96361; 96374; G0378

== ENCOUNTER → 2018-02-25 | Outpatient (CLI) | payer MEDICARE ==
[~2018-02-25] MED LIST changes: +APIX2.5T PO; +APIX5TAB
--- NOTE | 2018-02-25 17:07 | Diagnostic Imaging Report ---
INDICATION: Left adnexal cyst identified on CT imaging obtained for hematuria. History of breast cancer. TECHNIQUE: Multiple real-time grayscale sonographic images were obtained of the pelvis transabdominally. CORRELATION STUDY: CT 02/03/2018. FINDINGS: UTERUS/ENDOMETRIUM: Uterus measures 4.4 x 3.2 x 2.4 cm. Endometrial thickness is 4 mm. Uterus and endometrium appear to be within normal limits given patient's age. RIGHT OVARY: Not visualized perhaps owing to atrophic state versus position and/or obscuration from bowel. LEFT OVARY: What appears to be the left ovary measures approximately 5.6 x 4.3 x 3.9 cm. There is a predominantly hypoechoic mass occupying majority of the left ovary compatible with a cyst at 4.5 x 4.0 x 3.9 cm. Some vascular flow noted along the peripheral solid component. No vascularized echogenic nodular component within the cyst. No significant free pelvic fluid. IMPRESSION: 1. 4.5 cm relatively simple-appearing cyst in the left adnexa likely associated with left ovary. Given patient's age, cystadenocarcinoma and/or cystadenoma is not excluded. Dictated by: Dictated on workstation # [id number]
== END ==
LOC: RAD 11:55
PROVIDERS: ATTEND Surgery
DX: N83.8 Other noninflammatory disorders of ovary, fallopian tube and broad ligament (principal); Z85.3 Personal history of malignant neoplasm of breast
CPT/HCPCS: 76856

== ENCOUNTER → 2018-02-27 | Outpatient (CLI) | payer MEDICARE ==
--- NOTE | 2018-02-27 13:50 | Diagnostic Imaging Report ---
PATIENT HISTORY: Osteoporosis. TECHNIQUE: DEXA scan of the lumbar spine and left hip. COMPARISON: 01/19/2016. FINDINGS: The bone mineral density of the lumbar spine from L2-L4 measures 0.852 g/cm2, with a T score of -2.9 and a Z score of -0.6. There has been a 15% increase in bone mineral density since 01/19/2016, which may be in part due to degenerative changes. The total left hip bone mineral density measures 0.679 g/cm2, with a T score of -2.6 and a Z score of -0.1. The left femoral neck bone mineral density measures 0.593 g/cm2, with a T score of -3.2 and a Z score of -0.6. Please note that there is fixation hardware in the proximal left femur. IMPRESSION: Osteoporosis. Dictated by: Dictated on workstation # [id number]
== END ==
LOC: RAD 10:55
PROVIDERS: ATTEND Nurse Practitioner Adult Health
DX: C50.412 Malignant neoplasm of upper-outer quadrant of left female breast (principal); M81.0 Age-related osteoporosis without current pathological fracture
CPT/HCPCS: 77080

== ENCOUNTER 2018-03-22 15:45 | Emergency (ER) | payer MEDICARE ==
[~2018-03-22] VITALS: Ht 157.5 cm; Wt 54.4 kg
--- NOTE | 2018-03-22 16:05 | ED EENT ---
History of Present Illness General Chief Complaint: Oral/Throat Problems Stated Complaint: CANT SWALLOW,KNOT IN THROAT Nursing Triage Note: PATIENT STATES THAT SHE HAS A "KNOT" IN HER THROAT AND IT IS DIFFICULT TO SWALLOW. Source: patient Exam Limitations: no limitations History of Present Illness Date Seen by Provider: Mar 22, 2018 Time Seen by Provider: 16:00 Initial Comments Patient is a 83-year-old female who presents to the emergency room with complaints of a "knot" in her throat. She states that is very painful to swallow and it feels like there is a sore spot when she does swallow. She reports that she's had allergies and a runny nose. She does not have a muffled or hot potato voice on exam. Timing/Duration: this morning Location: throat Associated Symptoms: nasal congestion/drainage, sore throat; No voice change Allergies and Home Medications Allergies Coded Allergies: Penicillins (Unverified Allergy, Unknown, 08/16/16) lisinopril (Unverified Allergy, Unknown, 08/16/16) sulfamethoxazole (Unverified Allergy, Unknown, 08/16/16) trimethoprim (Unverified Allergy, Unknown, 08/16/16) Home Medications Albuterol Sulfate 2.5 Mg/3 Ml Vial.neb, 2.5 MG NEB Q4H PRN for SHORTNESS OF BREATH, (Reported) Albuterol Sulfate 1 Puff Puff, 2 PUFF INH Q4H PRN for SHORTNESS OF BREATH, ( Reported) Apixaban 2.5 Mg Tablet, 2.5 MG PO BID Please start on Saturday 02/10 Prescribed by: ESTELITA YOUNG on 02/04/18 0831 Cholecalciferol 5,000 Unit Capsule, 5,000 UNIT PO DAILY, (Reported) Levothyroxine Sodium 200 Mcg Tablet, 200 MCG PO DAILY, (Reported) Pantoprazole Sodium 40 Mg Tablet.dr, 40 MG PO DAILY Prescribed by: ESTELITA YOUNG on 05/16/17 1255 Sertraline Hcl 100 Mg Tablet, 50 MG PO DAILY, (Reported) TAKES 1/2 (100MG) TABLET DAILY Patient Home Medication List Home Medication List Reviewed: Yes Review of Systems Constitutional: see HPI; No chills, No fever Eyes: See HPI; Denies Blindness, Denies Blurred Vision Ears: See HPI; Denies Dizziness, Denies Pain Nose: see HPI, congestion, other (runny nose.) Mouth: see HPI; denies clots, denies loose teeth, denies pain Throat: see HPI, pain, painful swallowing Respiratory: see HPI; No cough, No dyspnea on exertion, No short of breath, No wheezing Gastrointestinal: see HPI; No abdominal pain, No constipation, No diarrhea, No dysphagia Musculoskeletal: no symptoms reported Skin: see HPI; No change in color, No change in hair/nails, No rash Neurological: See HPI; Denies Anxiety, Denies Depressed, Denies Emotional Problems Hematologic/Lymphatic: See HPI; Denies Anemia Immunological/Allergic: see HPI; denies food allergy, denies grass allergy All Other Systems Reviewed Negative Unless Noted: Yes Past [id number]-Dovpcs Hx Past Med/Social Hx: Reviewed Nursing Past Med/Soc Hx Patient Social History Recent Foreign Travel: No Contact w/Someone Who Travel: No Recent Infectious Disease Expo: Yes Recent Hopitalizations: No Immunizations Up To Date Date of Pneumonia Vaccine: Jun 09, 2010 Date of Influenza Vaccine: Aug 10, 2013 Seasonal Allergies Seasonal Allergies: No Past Medical History Surgeries: Yes Breast, Cardiac, Coronary Stent, Orthopedic, Renal Respiratory: Yes (O2 AT HS; P.E.'S TWICE IN LAST YEAR--ONCE IN 2016 AND AGAIN EARLY 2017) Asthma, Pneumonia, Chronic Bronchitis, Pulmonary Embolism Cardiac: Yes (STENTS X 2) Coronary Artery Disease, Heart Attack Neurological: No Reproductive Disorders: No [employer] History: Menopausal Genitourinary: Yes Kidney Stones Gastrointestinal: Yes (HIATAL HERNIA) Gastroesophageal Reflux, Gastrointestinal Bleed, Chronic Constipation, Diverticulosis, Hiatal Hernia Musculoskeletal: Yes (HIP FRACTURE, WRIST FRACTURE, VERTEBRAL COMPRESSION FRACTURES) Arthritis, Fractures Endocrine: Yes Hypothyroidsim HEENT: Yes Cataract Cancer: Yes Breast Did You Recieve Any Treatments: Yes What Type of Treatment Did You: Radiation, Surgical Intervention Psychosocial: No Integumentary: No Blood Disorders: Yes (CHRONIC ANEMIA, P.E.'S ) Adverse Reaction/Blood Tranf: No Family Medical History Reviewed Nursing Family Hx Cancer 03 FATHER, Onset:50's - 60 Cancer of colon 03 MOTHER, Onset:50's - 60 Cataract 03 FATHER 03 MOTHER, Onset:50's - 60 Cancer Physical Exam Vital Signs Vital Signs - First Documented 03/22/18 15:55 Temp 97.8 Pulse 101 Resp 18 B/P (MAP) 145/84 (104) Pulse Ox 94 Height, Weight, BMI Height: 5'2.00" Weight: 120lbs. 0oz. 54.809487cg; 21.8 BMI Method:Stated General Appearance: WD/WN, no apparent distress Eyes: bilateral eye normal inspection, bilateral eye PERRL, bilateral eye EOMI , bilateral eye abnormal EOM Ears: bilateral ear auricle normal, bilateral ear canal normal, bilateral ear TM normal Nose: normal inspection, discharge (patient has clear nasal discharge on exam. She states the last 2 days she has had a runny nose.) Mouth/Throat: No excessive drooling; pharynx tenderness (the pharynx is tender and reddened on exam. On exam I can see drainage and phlegm in the back for throat.); No tongue swollen, No tonsillar exudate, No tonsillar swelling, No uvula swelling, No voice changes Neck: non-tender, full range of motion, supple, normal inspection Cardiovascular: normal peripheral pulses, regular rate, rhythm, no edema, no gallop, no JVD, no murmur Respiratory: chest non-tender, lungs clear, normal breath sounds, no respiratory distress, no accessory muscle use, other (patient wears O2 at all times.) Gastrointestinal: normal bowel sounds, non tender, soft, no organomegaly, no pulsatile mass Neurologic/Psychiatric: alert, normal mood/affect, oriented x 3 Skin: normal color, warm/dry Progress/Results/Core Measures Results/Orders Lab Results Laboratory Tests Test 03/22/18 16:04 Range/Units Group A Streptococcus Screen NEGATIVE NEGATIVE Micro Results Microbiology 03/22/18 Throat Culture - Preliminary, Resulted No Beta Strep isolated My Orders Orders - TIARA DIAS Rapid Strep A Screen (03/22/18 16:14) Phenol/Na Phenolate Lozenge (Chlorasepti (03/22/18 16:30) Medications Given in ED Vital Signs/I&O Blood Pressure Mean: 104 Progress Progress Note : Time: 17:14 Progress Note The patient has relief of pain with the use of a lozenge. She agrees to obtain some [id number] medications for this and agrees with plan to discharge and close follow-up with her physician. Departure Impression Primary Impression: Post-nasal drip Disposition: 01 HOME, SELF-CARE Condition: Stable/Unchanged Departure-Patient Inst. Decision time for Depature: 17:12 Referrals: DELONTE MALIN DO (PCP) Primary Care Physician Patient Instructions: Sore Throat in Adults Add. Discharge Instructions: You may use [id number] throat lozenges, Tylenol, ibuprofen as directed by the box. Follow up with your doctor within 1 week for recheck. Call Saturday morning for appointment time. Return back to the emergency room for increased pain, shortness of breath, fevers, or any other concerns as needed. All discharge instructions reviewed with patient and/or family. Voiced understanding. TIARA DIAS Mar 22, 2018 16:05
[2018-03-22] MEDS ORDERED: CHLORASEPTIC LOZENGE MM ONE (16:30)
[2018-03-22 17:23] VITALS: BP 145/84
--- OUTSIDE RECORDS SUMMARY | 2018-03-23 22:09 | XMS REPORT | Continuity of Care Document ---
Author Author [facility] Organization [facility] Address Unknown Phone Unavailable Allergies Active Description Code Type Severity Reaction Onset Reported/Identified Relationship to Patient Clinical Status Yes lisinopril [id number] Drug Allergy Unknown N/A 08/16/2016 Yes Penicillins [id number] Drug Allergy Unknown N/A 08/16/2016 Yes sulfamethoxazole [id number] Drug Allergy Unknown N/A 08/16/2016 Yes trimethoprim [id number] Drug Allergy Unknown N/A 08/16/2016 Medications There is no data. Problems Date Dx Coded Attending Type Code Diagnosis Diagnosed By 06/28/2010 Ot 791.9 06/28/2010 Ot 821.01 06/28/2010 Ot 959.7 06/28/2010 Ot E000.8 06/28/2010 Ot E029.9 06/28/2010 Ot E849.7 06/28/2010 Ot E927.8 04/13/2012 Ot 174.9 MALIGN NEOPL BREAST NOS 04/13/2012 Ot 280.9 IRON DEFIC ANEMIA NOS 04/13/2012 Ot 733.00 OSTEOPOROSIS NOS 04/13/2012 Ot V15.3 HX OF IRRADIATION 04/13/2012 Ot V58.69 OTH MED,LT, CURRENT USE 06/18/2012 Ot 611.3 FAT NECROSIS OF BREAST 06/18/2012 Ot V10.3 HX OF BREAST MALIGNANCY 08/27/2012 Ot 174.9 MALIGN NEOPL BREAST NOS 08/27/2012 Ot 280.9 IRON DEFIC ANEMIA NOS 08/27/2012 Ot 733.00 OSTEOPOROSIS NOS 08/27/2012 Ot 793.89 OTH (ABN) FINDINGS ON RADIOLOGICAL EXAMI 08/27/2012 Ot V15.3 HX OF IRRADIATION 08/27/2012 Ot V58.69 OTH MED,LT, CURRENT USE 03/08/2013 GREG BERNARD Ot 174.9 MALIGN NEOPL BREAST NOS 03/08/2013 GREG BERNARD Ot 280.9 IRON DEFIC ANEMIA NOS 03/08/2013 JOANAGREG Ot 733.00 OSTEOPOROSIS NOS 03/08/2013 JOANAGREG Ot V15.3 HX OF IRRADIATION 03/08/2013 JOANAGREG Ot V58.69 OTH MED,LT,CURRENT USE 10/13/2013 JOANAGREG HAMMOND N Ot 174.9 MALIGN NEOPL BREAST NOS 10/13/2013 JOANAGREG Ot 280.9 IRON DEFIC ANEMIA NOS 10/13/2013 JOANAGREG Ot 733.00 OSTEOPOROSIS NOS 10/13/2013 GREG BERNARD Ot V04.81 ND FOR PROPHYLACTIC VACCIN AND INOCULATI 10/13/2013 GREG BERNARD Ot V15.3 HX OF IRRADIATION 10/13/2013 GREG BERNARD Ot V58.69 OTH MED,LT,CURRENT USE 10/26/2013 LANNY COONEY, DILMA Salamanca Ot 174.9 MALIGN NEOPL BREAST NOS 10/26/2013 LANNY COONEY, DILMA Salamanca Ot 244.9 HYPOTHYROIDISM NOS 10/26/2013 LANNY COONEY, DILMA M Ot 285.1 AC POSTHEMORRHAG ANEMIA 10/26/2013 LANNY COONEY, DILMA Salamanca Ot 455.6 HEMORRHOIDS NOS 10/26/2013 LANNY COONEY, DILMA M Ot 493.90 ASTHMA, UNSPECIFIED 10/26/2013 LANNY COONEY, DILMA M Ot 531.90 STOMACH ULCER NOS 10/26/2013 LANNY COONEY, DILMA Salamanca Ot 537.82 ANGIODYSPLSIA STOMACH DUODENUM (W/O ME 10/26/2013 LANNY COONEY, DILMA Salamanca Ot 553.3 DIAPHRAGMATIC HERNIA 10/26/2013 LANNY COONEY, DILMA Salamanca Ot 562.12 DIVERTICULOSIS OF COLON WITH HEMORRHAGE 10/26/2013 LANNY COONEY, DILMA Salamanca Ot 733.00 OSTEOPOROSIS NOS 01/19/2014 GREG BERNARD Ot 174.9 MALIGN NEOPL BREAST NOS 01/19/2014 GREG BERNARD Ot 280.9 IRON DEFIC ANEMIA NOS 01/19/2014 GREG BERNARD N Ot 733.00 OSTEOPOROSIS NOS 01/19/2014 GREG BERNARD Ot V04.81 ND FOR PROPHYLACTIC VACCIN AND INOCULATI 01/19/2014 GREG BERNARD Ot V15.3 HX OF IRRADIATION 01/19/2014 GREG BERNARD N Ot V58.69 OTH MED,LT,CURRENT USE 06/08/2014 JOANA, GREG N Ot 174.9 MALIGN NEOPL BREAST NOS 06/08/2014 JOANA, BOBPATO N Ot 280.9 IRON DEFIC ANEMIA NOS 06/08/2014 JOANA, BOBPATO N Ot 733.00 OSTEOPOROSIS NOS 06/08/2014 JOANAGREG N Ot V15.3 HX OF IRRADIATION 06/08/2014 JOANAGREG N Ot V58.69 OTH MED,LT,CURRENT USE 07/29/2014 JOANA, BOBAN N Ot 174.9 07/29/2014 JOANA, BOBAN N Ot 280.9 07/29/2014 JOANA, BOBAN N Ot 733.00 07/29/2014 JOANA, BOBPATO N Ot V15.3 07/29/2014 JOANA, BOBAN N Ot V58.69 08/09/2014 JOANA, BOBAN N Ot 174.9 08/09/2014 JOANA, BOBAN N Ot 280.9 08/09/2014 JOANA, BOBAN N Ot 733.00 08/09/2014 JOANA, BOBAN N Ot V15.3 08/09/2014 JOANA, BOBAN N Ot V58.69 09/29/2014 JOANA, BOBAN N Ot 174.9 09/29/2014 JOANA, BOBAN N Ot 280.9 09/29/2014 JOANA, BOBAN N Ot 733.00 09/29/2014 JOANA, BOBAN N Ot V15.3 09/29/2014 JOANA, BOBAN N Ot V58.69 11/07/2014 JOANA BOBPATO N Ot 174.9 MALIGN NEOPL BREAST NOS 11/07/2014 JOANA BOBAN N Ot 280.9 IRON DEFIC ANEMIA NOS 11/07/2014 JOANA, BOBAN N Ot 733.00 OSTEOPOROSIS NOS 11/07/2014 JOANA BOBPATO N Ot V15.3 HX OF IRRADIATION 11/07/2014 JOANA, BOBAN N Ot V58.69 OTH MED,LT,CURRENT USE 03/07/2015 JOANA, BOBAN N Ot 174.9 03/07/2015 JOANA, BOBAN N Ot 280.9 03/07/2015 JOANA, BOBAN N Ot 733.00 03/07/2015 JOANA, GREG N Ot V15.3 03/07/2015 JOANA, GREG N Ot V58.69 03/08/2015 JOANA, GREG N Ot 174.9 03/08/2015 JOANA, GREG N Ot 280.9 03/08/2015 JOANA, GREG N Ot 733.00 03/08/2015 JOANA, GREG N Ot V15.3 03/08/2015 JOANA, GREG N Ot V58.69 03/14/2015 JOANA, GREG N Ot 174.9 03/14/2015 JOANA, GREG N Ot 280.9 03/14/2015 JOANA, GREG N Ot 733.00 03/14/2015 JOANAGREG HAMMOND N Ot V15.3 03/14/2015 JOANAGREG HAMMOND N Ot V58.69 03/21/2015 MARKEARA Giron S ROLL OFF DRIVER Ot 174.9 03/21/2015 MARKEARA Giorn S ROLL OFF DRIVER Ot 280.9 03/21/2015 MARKEARA Giron S ROLL OFF DRIVER Ot 733.00 03/21/2015 MAR, HILAH S ROLL OFF DRIVER Ot V15.3 03/21/2015 MARKEARA Giron S ROLL OFF DRIVER Ot V58.69 03/29/2015 MARMAXXAH S ROLL OFF DRIVER Ot 174.9 05/18/2015 Ot 174.9 05/18/2015 Ot 733.00 05/18/2015 Ot V15.3 05/18/2015 Ot V58.69 05/18/2015 LANNY COONEY, DILMA Salamanca Ot V72.84 05/18/2015 LANNY COONEY, DILMA Salamanca Ot 578.9 05/18/2015 MARKEARA Giron S ROLL OFF DRIVER Ot 244.9 05/18/2015 MARMAXXAH S ROLL OFF DRIVER Ot 280.9 05/18/2015 MAR HILAH S ROLL OFF DRIVER Ot 562.10 05/18/2015 MARMAXXAH S ROLL OFF DRIVER Ot 733.00 05/18/2015 MAR, HILAH S ROLL OFF DRIVER Ot V10.3 05/18/2015 MAR HILAH S ROLL OFF DRIVER Ot V58.69 05/18/2015 MARKEARA Giron S ROLL OFF DRIVER Ot V67.2 05/18/2015 MARKEARA Giron S ROLL OFF DRIVER Ot 174.9 05/18/2015 KEARA MAR S ROLL OFF DRIVER Ot V76.11 05/18/2015 GREG BERNARD N Ot 174.9 05/18/2015 JOANA GREG N Ot 280.9 05/18/2015 FADI BERNARDPATO N Ot 733.00 05/18/2015 JOANA GREG N Ot V15.3 05/18/2015 JOANA GREG N Ot V58.69 05/18/2015 MARKEARA Giron S ROLL OFF DRIVER Ot 174.9 05/18/2015 MARKEARA S ROLL OFF DRIVER Ot 280.9 05/18/2015 MAR KEARA S ROLL OFF DRIVER Ot 733.00 05/18/2015 MAR KEARA S ROLL OFF DRIVER Ot V15.3 05/18/2015 MARKEARA S ROLL OFF DRIVER Ot V58.69 05/18/2015 MARKEARA S ROLL OFF DRIVER Ot 174.9 05/18/2015 MAR KEARA S ROLL OFF DRIVER Ot 174.9 05/18/2015 MARKEARA S ROLL OFF DRIVER Ot 280.9 05/18/2015 MARKEARA S ROLL OFF DRIVER Ot 733.00 05/18/2015 MARKEARA S ROLL OFF DRIVER Ot V15.3 05/18/2015 MARKEARA S ROLL OFF DRIVER Ot V58.69 05/27/2015 MARKEARA S ROLL OFF DRIVER Ot 174.9 05/27/2015 MARKEARA S ROLL OFF DRIVER Ot 280.9 05/27/2015 MAR KEARA S ROLL OFF DRIVER Ot 733.00 05/27/2015 MARKEARA S ROLL OFF DRIVER Ot V15.3 05/27/2015 MARKEARA S ROLL OFF DRIVER Ot V58.69 06/05/2015 GREG BERNARD N Ot 174.9 MALIGN NEOPL BREAST NOS 06/05/2015 JOANAGREG N Ot 280.9 IRON DEFIC ANEMIA NOS 06/05/2015 GREG BERNARD N Ot 733.00 OSTEOPOROSIS NOS 06/05/2015 JOANAGREG Ot C50.919 MALIGNANT NEOPLASM OF UNSP SITE OF UNSPE 06/05/2015 GREG BERNARD Ot D50.9 IRON DEFICIENCY ANEMIA, UNSPECIFIED 06/05/2015 JOANA, BOBAN N Ot M81.0 AGE-RELATED OSTEOPOROSIS W/O CURRENT PAT 06/05/2015 GREG BERNARD Ot V15.3 HX OF IRRADIATION 06/05/2015 GREG BERNARD Ot V58.69 OTH MED,LT,CURRENT USE 06/05/2015 GREG BERNARD Ot Z79.899 OTHER CAFETERIA AIDE (CURRENT) DRUG THERAPY 06/05/2015 GREG BERNARD Ot Z92.3 PERSONAL HISTORY OF IRRADIATION 09/14/2015 Ot 174.9 09/14/2015 Ot 285.9 09/14/2015 Ot 412 09/14/2015 Ot 414.00 09/14/2015 Ot 729.5 09/14/2015 Ot 733.00 09/14/2015 Ot V15.3 09/14/2015 Ot V45.82 09/14/2015 Ot V58.63 09/14/2015 Ot V58.69 09/14/2015 Ot 414.01 09/14/2015 Ot V58.61 09/14/2015 Ot V58.61 09/14/2015 Ot V58.83 09/14/2015 Ot V58.61 09/14/2015 Ot V58.83 09/14/2015 Ot 054.9 09/14/2015 Ot 174.9 09/14/2015 Ot 412 09/14/2015 Ot 414.00 09/14/2015 Ot 733.00 09/14/2015 Ot V15.3 09/14/2015 Ot V45.82 09/14/2015 Ot V58.63 09/14/2015 Ot V58.69 09/14/2015 Ot 174.9 09/14/2015 Ot 280.9 09/14/2015 Ot 412 09/14/2015 Ot 414.00 09/14/2015 Ot 733.00 09/14/2015 Ot V15.3 09/14/2015 Ot V45.82 09/14/2015 Ot V58.63 09/14/2015 Ot V58.69 09/14/2015 Ot 733.00 09/14/2015 Ot V49.81 09/14/2015 Ot V82.81 09/14/2015 Ot 268.9 09/14/2015 Ot 285.9 09/14/2015 Ot 174.9 09/14/2015 Ot 280.9 09/14/2015 Ot 733.00 09/14/2015 Ot V15.3 09/14/2015 Ot V58.69 09/14/2015 Ot 174.9 09/14/2015 Ot 280.9 09/14/2015 Ot 733.00 09/14/2015 Ot V15.3 09/14/2015 Ot V58.69 09/14/2015 Ot V72.84 09/14/2015 Ot 280.9 09/14/2015 Ot 562.10 09/14/2015 Ot V16.0 09/14/2015 Ot V76.51 09/14/2015 Ot 280.9 09/14/2015 Ot V58.69 09/14/2015 Ot 174.9 09/14/2015 Ot 611.72 09/14/2015 Ot 611.72 09/14/2015 Ot V10.3 09/14/2015 Ot V72.84 09/14/2015 Ot V74.8 09/14/2015 Ot 174.9 09/14/2015 Ot 280.9 09/14/2015 Ot 733.00 09/14/2015 Ot V15.3 09/14/2015 Ot V58.69 09/14/2015 ISABELA KEARA Giron ROLL OFF DRIVER Ot 280.9 09/14/2015 ISABELAKEARA ROLL OFF DRIVER Ot 528.2 09/14/2015 ISABELA KEARA Giron ROLL OFF DRIVER Ot 733.00 09/14/2015 ISABELAKEARA ROLL OFF DRIVER Ot V10.3 09/14/2015 ISABELA KEARA Giron ROLL OFF DRIVER Ot V58.69 09/14/2015 ISABELA KEARA Giron ROLL OFF DRIVER Ot V67.2 09/14/2015 ISABELA KEARA Giron ROLL OFF DRIVER Ot 174.9 09/14/2015 JOANAGREG HAMMOND N Ot 733.00 09/16/2015 ISABELAKEARA ROLL OFF DRIVER Ot C50.412 09/21/2015 ISABELA KEARA Giron ROLL OFF DRIVER Ot D50.0 09/21/2015 ISABELA KEARA Giron ROLL OFF DRIVER Ot K12.1 09/21/2015 ISABELA KEARA Giron ROLL OFF DRIVER Ot K57.92 09/21/2015 ISABELA KEARA Giron ROLL OFF DRIVER Ot M81.0 09/21/2015 ISABELA KEARA Giron ROLL OFF DRIVER Ot Q27.30 09/21/2015 MARKEARA Giron ROLL OFF DRIVER Ot Z08 09/21/2015 KEARA MAR ROLL OFF DRIVER Ot Z79.899 09/21/2015 KEARA MAR ROLL OFF DRIVER Ot Z85.3 10/04/2015 KEARA MAR ROLL OFF DRIVER Ot C50.412 10/12/2015 KEARA MAR ROLL OFF DRIVER Ot C50.412 01/11/2016 JOANA GREG N Ot 174.9 01/11/2016 OJANA, GREG N Ot 280.9 01/11/2016 JOANA, GREG Khalil Ot 733.00 01/11/2016 JOANA GREG Khalil Ot V15.3 PRSN BRD/ALIT PEDL CYC INJURED IN [place] 01/11/2016 JOANA GREG Khalil Ot V58.69 01/19/2016 JOANA GREG N Ot 174.9 01/19/2016 JOANA, GREG N Ot 280.9 01/19/2016 JOANA, GREG N Ot 733.00 01/19/2016 JOANA GREG Khalil Ot V15.3 PRSN BRD/ALIT PEDL CYC INJURED IN [place] 01/19/2016 JOANA GREG N Ot V58.69 01/19/2016 JOANAGREG Ot M81.0 AGE-RELATED OSTEOPOROSIS W/O CURRENT PAT 01/19/2016 GREG BERNARD Ot M81.0 AGE-RELATED OSTEOPOROSIS W/O CURRENT PAT 01/20/2016 GREG BERNARD Ot M81.0 AGE-RELATED OSTEOPOROSIS W/O CURRENT PAT 01/25/2016 GREG BERNARD Ot M81.0 AGE-RELATED OSTEOPOROSIS W/O CURRENT PAT 02/07/2016 GREG BERNARD Ot M81.0 AGE-RELATED OSTEOPOROSIS W/O CURRENT PAT 02/22/2016 GREG BERNARD Ot D50.0 IRON DEFICIENCY ANEMIA SECONDARY TO BLOO 02/22/2016 GREG BERNARD Ot K12.1 OTHER FORMS OF STOMATITIS 02/22/2016 GREG BERNARD Ot K57.92 DVTRCLI OF INTEST, PART UNSP, W/O PERF O 02/22/2016 GREG BERNARD Ot M81.0 AGE-RELATED OSTEOPOROSIS W/O CURRENT PAT 02/22/2016 GREG BERNARD Ot Q27.30 ARTERIOVENOUS MALFORMATION, SITE UNSPECI 02/22/2016 GREG BERNARD Simran Ot Z08 ENCNTR FOR FOLLOW-UP EXAM AFTER TRTMT FO 02/22/2016 GREG BERNARD Simran Ot Z79.899 OTHER HALF-WAY (CURRENT) DRUG THERAPY 02/22/2016 JOANA FADIPATO Simran Ot Z85.3 PERSONAL HISTORY OF MALIGNANT NEOPLASM O 04/06/2016 JOANAGREG Ot C50.412 MALIG NEOPLASM OF UPPER-OUTER QUADRANT O 04/09/2016 JOANAGREG Ot C50.412 MALIG NEOPLASM OF UPPER-OUTER QUADRANT O 04/09/2016 JOANAGREG Ot C50.412 MALIG NEOPLASM OF UPPER-OUTER QUADRANT O 04/17/2016 JOANAGREG Ot D50.0 IRON DEFICIENCY ANEMIA SECONDARY TO BLOO 04/17/2016 GREG BERNARD Ot K12.1 OTHER FORMS OF STOMATITIS 04/17/2016 GREG BERNARD Ot K57.92 DVTRCLI OF INTEST, PART UNSP, W/O PERF O 04/17/2016 JOANA GREG Khalil Ot M81.0 AGE-RELATED OSTEOPOROSIS W/O CURRENT PAT 04/17/2016 GREG BERNARD Simran Ot Q27.30 ARTERIOVENOUS MALFORMATION, SITE UNSPECI 04/17/2016 GREG BERNARD Simran Ot Z08 ENCNTR FOR FOLLOW-UP EXAM AFTER TRTMT FO 04/17/2016 GREG BERNARD Simran Ot Z79.899 OTHER HALF-WAY (CURRENT) DRUG THERAPY 04/17/2016 JOANA, FADIPATO Simran Ot Z85.3 PERSONAL HISTORY OF MALIGNANT NEOPLASM O 04/25/2016 GREG BERNARD Ot C50.412 MALIG NEOPLASM OF UPPER-OUTER QUADRANT O 04/29/2016 CHU GRADY APRN Ot K59.00 CONSTIPATION, UNSPECIFIED 04/29/2016 CHU GRADY APRN Ot S52.351A DISPLACED COMMINUTED FX SHAFT OF RADIUS, 04/29/2016 CHU GRADY APRN Ot S72.011A UNSP INTRACAPSULAR FRACTURE OF RIGHT FEM 04/29/2016 CHU GRADY APRN Ot S79.911A UNSPECIFIED INJURY OF RIGHT HIP, INITIAL 04/29/2016 CHU GRADY APRN Ot W01.0XXA FALL SAME LEV FROM SLIP/TRIP W/O STRIKE 04/29/2016 CHU GRADY FIRST AID ATTENDANT Ot Y92.[address] OF OCCURRENCE O 04/29/2016 CHU GRADY APRN Ot Y99.8 OTHER EXTERNAL CAUSE STATUS 05/01/2016 CHU GRADY APRN Ot K59.00 CONSTIPATION, UNSPECIFIED 05/01/2016 CHU GRADY APRN Ot S52.351A DISPLACED COMMINUTED FX SHAFT OF RADIUS, 05/01/2016 CHU GRADY APRN Ot S72.011A UNSP INTRACAPSULAR FRACTURE OF RIGHT FEM 05/01/2016 CHU GRADY APRN Ot S79.911A UNSPECIFIED INJURY OF RIGHT HIP, INITIAL 05/01/2016 CHU GRADY APRN Ot W01.0XXA FALL SAME LEV FROM SLIP/TRIP W/O STRIKE 05/01/2016 CHU GRADY APRN Ot Y92.[address] OF OCCURRENCE O 05/01/2016 CHU GRADY APRN Ot Y99.8 OTHER EXTERNAL CAUSE STATUS 05/03/2016 LANNY COONEY, DILMA Salamanca Ot V72.84 EXAM PRE-OPERATIVE NOS 05/03/2016 LANNY COONEY, DILMA Salamanca Ot 578.9 GASTROINTEST HEMORR NOS 05/03/2016 KEARA MARP Ot 244.9 HYPOTHYROIDISM NOS 05/03/2016 KAERA MAR ROLL OFF DRIVER Ot 280.9 IRON DEFIC ANEMIA NOS 05/03/2016 KEARA MAR ROLL OFF DRIVER Ot 562.10 DIVERTICULOSIS COLON (W/O MENT OF HEMORR 05/03/2016 KEARA MAR ROLL OFF DRIVER Ot 733.00 OSTEOPOROSIS NOS 05/03/2016 KEARA MAR ROLL OFF DRIVER Ot V10.3 HX OF BREAST MALIGNANCY 05/03/2016 KEARA MARP Ot V58.69 OTH MED,LT,CURRENT USE 05/03/2016 KEARA MAR ROLL OFF DRIVER Ot V67.2 CHEMOTHERAPY FOLLOW-UP 05/03/2016 KEARA MARP Ot 174.9 MALIGN NEOPL BREAST NOS 05/03/2016 KEARA MARP Ot V76.11 SCRN MAMMO-HIGH RISK PT, MALIGNANT NEOPL 05/03/2016 KEARA MAR Bree ROLL OFF DRIVER Ot 174.9 MALIGN NEOPL BREAST NOS 05/03/2016 MAXX MARROXANA Bree ROLL OFF DRIVER Ot 280.9 IRON DEFIC ANEMIA NOS 05/03/2016 MAXX MARROXANA Bree ROLL OFF DRIVER Ot 733.00 OSTEOPOROSIS NOS 05/03/2016 MAXX MARROXANA Bree ROLL OFF DRIVER Ot V15.3 HX OF IRRADIATION 05/03/2016 MAXX MARROXANA Bree KNUTSONP Ot V58.69 OTH MED,LT,CURRENT USE 05/03/2016 KEARA MAR ROLL OFF DRIVER Ot 174.9 MALIGN NEOPL BREAST NOS 05/03/2016 MAXX MARROXANA Bree KNUTSONP Ot C50.412 MALIG NEOPLASM OF UPPER-OUTER QUADRANT O 05/03/2016 MAXX MARROXANA Bree KNUTSONP Ot D50.0 IRON DEFICIENCY ANEMIA SECONDARY TO BLOO 05/03/2016 ISABELA KEARA Bree ROLL OFF DRIVER Ot K12.1 OTHER FORMS OF STOMATITIS 05/03/2016 KEARA MARP Ot K57.92 DVTRCLI OF INTEST, PART UNSP, W/O PERF O 05/03/2016 KEARA MARP Ot M81.0 AGE-RELATED OSTEOPOROSIS W/O CURRENT PAT 05/03/2016 MAXX MARROXANA Bree KNUTSONP Ot Q27.30 ARTERIOVENOUS MALFORMATION, SITE UNSPECI 05/03/2016 KEARA MARP Ot Z08 ENCNTR FOR FOLLOW-UP EXAM AFTER TRTMT FO 05/03/2016 MAXX MARROXANA Bree ROLL OFF DRIVER Ot Z79.899 OTHER CAFETERIA AIDE (CURRENT) DRUG THERAPY 05/03/2016 MAXX MARROXANA Bree ROLL OFF DRIVER Ot Z85.3 PERSONAL HISTORY OF MALIGNANT NEOPLASM O 05/03/2016 GREG BERNARD Ot M81.0 AGE-RELATED OSTEOPOROSIS W/O CURRENT PAT 05/03/2016 GREG BERNARD Ot C50.412 MALIG NEOPLASM OF UPPER-OUTER QUADRANT O 05/03/2016 GREG BERNARD Ot D50.0 IRON DEFICIENCY ANEMIA SECONDARY TO BLOO 05/03/2016 GREG BERNARD Ot K12.1 OTHER FORMS OF STOMATITIS 05/03/2016 GREG BERNARD Ot K57.92 DVTRCLI OF INTEST, PART UNSP, W/O PERF O 05/03/2016 GREG BERNARD Ot M81.0 AGE-RELATED OSTEOPOROSIS W/O CURRENT PAT 05/03/2016 GREG BERNARD Ot Q27.30 ARTERIOVENOUS MALFORMATION, SITE UNSPECI 05/03/2016 GREG BERNARD Ot Z08 ENCNTR FOR FOLLOW-UP EXAM AFTER TRTMT FO 05/03/2016 GREG BERNARD Ot Z79.899 OTHER HALF-WAY (CURRENT) DRUG THERAPY 05/03/2016 GREG BERNARD Ot Z85.3 PERSONAL HISTORY OF MALIGNANT NEOPLASM O 05/07/2016 LANNY COONEY, DILMA Salamanca Ot V72.84 EXAM PRE-OPERATIVE NOS 05/07/2016 LANNY COONEY, DILMA Salamanca Ot 578.9 GASTROINTEST HEMORR NOS 05/07/2016 KEARA MAR ROLL OFF DRIVER Ot 244.9 HYPOTHYROIDISM NOS 05/07/2016 KEARA MAR S ROLL OFF DRIVER Ot 280.9 IRON DEFIC ANEMIA NOS 05/07/2016 KEARA MAR ROLL OFF DRIVER Ot 562.10 DIVERTICULOSIS COLON (W/O MENT OF HEMORR 05/07/2016 KEARA MAR ROLL OFF DRIVER Ot 733.00 OSTEOPOROSIS NOS 05/07/2016 KEARA MAR ROLL OFF DRIVER Ot V10.3 HX OF BREAST MALIGNANCY 05/07/2016 KEARA MAR ROLL OFF DRIVER Ot V58.69 OTH MED,LT,CURRENT USE 05/07/2016 KEARA MAR ROLL OFF DRIVER Ot V67.2 CHEMOTHERAPY FOLLOW-UP 05/07/2016 KEARA MAR ROLL OFF DRIVER Ot 174.9 MALIGN NEOPL BREAST NOS 05/07/2016 KEARA MAR ROLL OFF DRIVER Ot V76.11 SCRN MAMMO-HIGH RISK PT, MALIGNANT NEOPL 05/07/2016 KEARA MAR ROLL OFF DRIVER Ot 174.9 MALIGN NEOPL BREAST NOS 05/07/2016 KEARA MAR S ROLL OFF DRIVER Ot 280.9 IRON DEFIC ANEMIA NOS 05/07/2016 KEARA MAR ROLL OFF DRIVER Ot 733.00 OSTEOPOROSIS NOS 05/07/2016 KEARA MAR ROLL OFF DRIVER Ot V15.3 HX OF IRRADIATION 05/07/2016 KEARA MAR ROLL OFF DRIVER Ot V58.69 OTH MED,LT,CURRENT USE 05/07/2016 KEARA MAR ROLL OFF DRIVER Ot 174.9 MALIGN NEOPL BREAST NOS 05/07/2016 KEARA MARP Ot C50.412 MALIG NEOPLASM OF UPPER-OUTER QUADRANT O 05/07/2016 KEARA MARP Ot D50.0 IRON DEFICIENCY ANEMIA SECONDARY TO BLOO 05/07/2016 KEARA MAR ROLL OFF DRIVER Ot K12.1 OTHER FORMS OF STOMATITIS 05/07/2016 KEARA MARP Ot K57.92 DVTRCLI OF INTEST, PART UNSP, W/O PERF O 05/07/2016 KEARA MAR ROLL OFF DRIVER Ot M81.0 AGE-RELATED OSTEOPOROSIS W/O CURRENT PAT 05/07/2016 KEARA MARP Ot Q27.30 ARTERIOVENOUS MALFORMATION, SITE UNSPECI 05/07/2016 KEARA MARP Ot Z08 ENCNTR FOR FOLLOW-UP EXAM AFTER TRTMT FO 05/07/2016 MARKEARAP Ot Z79.899 OTHER CAFETERIA AIDE (CURRENT) DRUG THERAPY 05/07/2016 ISABELA KEARA KNUTSONP Ot Z85.3 PERSONAL HISTORY OF MALIGNANT NEOPLASM O 05/07/2016 JOANA, GREG Khalil Ot M81.0 AGE-RELATED OSTEOPOROSIS W/O CURRENT PAT 05/07/2016 JOANA, GREG Khalil Ot C50.412 MALIG NEOPLASM OF UPPER-OUTER QUADRANT O 05/07/2016 JOANA, GREG Khalil Ot D50.0 IRON DEFICIENCY ANEMIA SECONDARY TO BLOO 05/07/2016 JOANAGREG Ot K12.1 OTHER FORMS OF STOMATITIS 05/07/2016 GREG BERNARD Ot K57.92 DVTRCLI OF INTEST, PART UNSP, W/O PERF O 05/07/2016 JOANA, GREG N Ot M81.0 AGE-RELATED OSTEOPOROSIS W/O CURRENT PAT 05/07/2016 JOANA, GREG N Ot Q27.30 ARTERIOVENOUS MALFORMATION, SITE UNSPECI 05/07/2016 GREG BERNARD N Ot Z08 ENCNTR FOR FOLLOW-UP EXAM AFTER TRTMT FO 05/07/2016 GREG BERNARD N Ot Z79.899 OTHER HALF-WAY (CURRENT) DRUG THERAPY 05/07/2016 GREG BERNARD N Ot Z85.3 PERSONAL HISTORY OF MALIGNANT NEOPLASM O 05/07/2016 Ot 054.9 HERPES SIMPLEX NOS 05/07/2016 Ot 174.9 MALIGN NEOPL BREAST NOS 05/07/2016 Ot 412 OLD MYOCARDIAL INFARCT 05/07/2016 Ot 414.00 CORON ATHEROSCLER NOS TYPE VESSEL, NATIV 05/07/2016 Ot 733.00 OSTEOPOROSIS NOS 05/07/2016 Ot V15.3 HX OF IRRADIATION 05/07/2016 Ot V45.82 PERCUTANEOUS TRANSLUM CORON ANGIOPLASTY 05/07/2016 Ot V58.63 LONG-TERM( CURRENT)USE OF ANTIPLATELET/AN 05/07/2016 Ot V58.69 OTH MED,LT, CURRENT USE 05/07/2016 Ot 174.9 MALIGN NEOPL BREAST NOS 05/07/2016 Ot 280.9 IRON DEFIC ANEMIA NOS 05/07/2016 Ot 412 OLD MYOCARDIAL INFARCT 05/07/2016 Ot 414.00 CORON ATHEROSCLER NOS TYPE VESSEL, NATIV 05/07/2016 Ot 733.00 OSTEOPOROSIS NOS 05/07/2016 Ot V15.3 HX OF IRRADIATION 05/07/2016 Ot V45.82 PERCUTANEOUS TRANSLUM CORON ANGIOPLASTY 05/07/2016 Ot V58.63 LONG-TERM( CURRENT)USE OF ANTIPLATELET/AN 05/07/2016 Ot V58.69 OTH MED,LT, CURRENT USE 05/07/2016 Ot 733.00 OSTEOPOROSIS NOS 05/07/2016 Ot V49.81 ASYMPT POSTMENOPAUSAL STATUS (AGE-RELATE 05/07/2016 Ot V82.81 SCREENING FOR OSTEOPOROSIS 05/07/2016 Ot 268.9 VITAMIN D DEFICIENCY NOS 05/07/2016 Ot 285.9 ANEMIA NOS 05/07/2016 Ot 174.9 MALIGN NEOPL BREAST NOS 05/07/2016 Ot 280.9 IRON DEFIC ANEMIA NOS 05/07/2016 Ot 733.00 OSTEOPOROSIS NOS 05/07/2016 Ot V15.3 HX OF IRRADIATION 05/07/2016 Ot V58.69 OTH MED,LT, CURRENT USE 05/07/2016 Ot 174.9 MALIGN NEOPL BREAST NOS 05/07/2016 Ot 280.9 IRON DEFIC ANEMIA NOS 05/07/2016 Ot 733.00 OSTEOPOROSIS NOS 05/07/2016 Ot V15.3 HX OF IRRADIATION 05/07/2016 Ot V58.69 OTH MED,LT, CURRENT USE 05/07/2016 Ot V72.84 EXAM PRE- OPERATIVE NOS 05/07/2016 Ot 280.9 IRON DEFIC ANEMIA NOS 05/07/2016 Ot 562.10 DIVERTICULOSIS COLON (W/O MENT OF HEMORR 05/07/2016 Ot V16.0 FAMILY HX-GI MALIGNANCY 05/07/2016 Ot V76.51 SCREEN MAL NEOP-COLON 05/07/2016 Ot 280.9 IRON DEFIC ANEMIA NOS 05/07/2016 Ot V58.69 OTH MED,LT, CURRENT USE 05/07/2016 Ot 174.9 MALIGN NEOPL BREAST NOS 05/07/2016 Ot 611.72 LUMP OR MASS IN BREAST 05/07/2016 Ot 611.72 LUMP OR MASS IN BREAST 05/07/2016 Ot V10.3 HX OF BREAST MALIGNANCY 05/07/2016 Ot V72.84 EXAM PRE- OPERATIVE NOS 05/07/2016 Ot V74.8 SCREEN- BACTERIAL DIS NEC 05/07/2016 Ot 174.9 MALIGN NEOPL BREAST NOS 05/07/2016 Ot 280.9 IRON DEFIC ANEMIA NOS 05/07/2016 Ot 733.00 OSTEOPOROSIS NOS 05/07/2016 Ot V15.3 HX OF IRRADIATION 05/07/2016 Ot V58.69 OTH MED,LT, CURRENT USE 05/07/2016 KEARA MAR ROLL OFF DRIVER Ot 280.9 IRON DEFIC ANEMIA NOS 05/07/2016 KEARA MAR ROLL OFF DRIVER Ot 528.2 ORAL APHTHAE 05/07/2016 KEARA MAR ROLL OFF DRIVER Ot 733.00 OSTEOPOROSIS NOS 05/07/2016 KEARA MAR ROLL OFF DRIVER Ot V10.3 HX OF BREAST MALIGNANCY 05/07/2016 KEARA MARP Ot V58.69 OTH MED,LT,CURRENT USE 05/07/2016 KEARA MAR ROLL OFF DRIVER Ot V67.2 CHEMOTHERAPY FOLLOW-UP 05/07/2016 KEARA MAR ROLL OFF DRIVER Ot 174.9 MALIGN NEOPL BREAST NOS 05/07/2016 JOANA FADIPATO Khalil Ot 733.00 OSTEOPOROSIS NOS 05/11/2016 CHU GRADY APRN Ot K59.00 CONSTIPATION, UNSPECIFIED 05/11/2016 CHU GRADY APRN Ot S52.351A DISPLACED COMMINUTED FX SHAFT OF RADIUS, 05/11/2016 CHU GRADY APRN Ot S72.011A UNSP INTRACAPSULAR FRACTURE OF RIGHT FEM 05/11/2016 CHU GRADY APRN Ot S79.911A UNSPECIFIED INJURY OF RIGHT HIP, INITIAL 05/11/2016 CHU GRADY APRN Ot W01.0XXA FALL SAME LEV FROM SLIP/TRIP W/O STRIKE 05/11/2016 CHU GRADY APRN Ot Y92.[address] OF OCCURRENCE O 05/11/2016 CHU GRADY APRN Ot Y99.8 OTHER EXTERNAL CAUSE STATUS 05/12/2016 CHU GRADY APRN Ot K59.00 CONSTIPATION, UNSPECIFIED 05/12/2016 CHU GRADY APRN Ot S52.351A DISPLACED COMMINUTED FX SHAFT OF RADIUS, 05/12/2016 CHU GRADY APRN Ot S72.011A UNSP INTRACAPSULAR FRACTURE OF RIGHT FEM 05/12/2016 HCU GARDY APRN Ot S79.911A UNSPECIFIED INJURY OF RIGHT HIP, INITIAL 05/12/2016 CHU GRADY APRN Ot W01.0XXA FALL SAME LEV FROM SLIP/TRIP W/O STRIKE 05/12/2016 CHU GRADY APRN Ot Y92.[address] OF OCCURRENCE O 05/12/2016 CHU GRADY APRN Ot Y99.8 OTHER EXTERNAL CAUSE STATUS 10/10/2016 GREG BERNARD Ot D50.0 IRON DEFICIENCY ANEMIA SECONDARY TO BLOO 10/10/2016 GREG BERNARD Ot K12.1 OTHER FORMS OF STOMATITIS 10/10/2016 GREG BERNARD Ot K57.92 DVTRCLI OF INTEST, PART UNSP, W/O PERF O 10/10/2016 GREG BERNARD Ot M81.0 AGE-RELATED OSTEOPOROSIS W/O CURRENT PAT 10/10/2016 GREG BERNARD Ot Q27.30 ARTERIOVENOUS MALFORMATION, SITE UNSPECI 10/10/2016 GREG BERNARD Ot Z08 ENCNTR FOR FOLLOW-UP EXAM AFTER TRTMT FO 10/10/2016 GREG BERNARD Ot Z79.899 OTHER CAFETERIA AIDE (CURRENT) DRUG THERAPY 10/10/2016 GREG BERNARD Ot Z85.3 PERSONAL HISTORY OF MALIGNANT NEOPLASM O 10/10/2016 GREG BERNARD Ot Z92.3 PERSONAL HISTORY OF IRRADIATION 11/14/2016 GREG BERNARD Ot D50.0 IRON DEFICIENCY ANEMIA SECONDARY TO BLOO 11/14/2016 GREG BERNARD Ot K12.1 OTHER FORMS OF STOMATITIS 11/14/2016 JOANAGREG Ot K57.92 DVTRCLI OF INTEST, PART UNSP, W/O PERF O 11/14/2016 JOANAGREG Ot M81.0 AGE-RELATED OSTEOPOROSIS W/O CURRENT PAT 11/14/2016 JOANAGREG Ot Q27.30 ARTERIOVENOUS MALFORMATION, SITE UNSPECI 11/14/2016 GREG BERNARD Ot Z08 ENCNTR FOR FOLLOW-UP EXAM AFTER TRTMT FO 11/14/2016 GREG BERNARD Ot Z79.899 OTHER HALF-WAY (CURRENT) DRUG THERAPY 11/14/2016 GREG BERNARD Ot Z85.3 PERSONAL HISTORY OF MALIGNANT NEOPLASM O 11/14/2016 GREG BERNARD Ot Z92.3 PERSONAL HISTORY OF IRRADIATION 11/15/2016 GREG BERNARD Ot D50.0 IRON DEFICIENCY ANEMIA SECONDARY TO BLOO 11/15/2016 GREG BERNARD Ot K12.1 OTHER FORMS OF STOMATITIS 11/15/2016 GREG BERNARD Ot K57.92 DVTRCLI OF INTEST, PART UNSP, W/O PERF O 11/15/2016 GREG BERNARD Ot M81.0 AGE-RELATED OSTEOPOROSIS W/O CURRENT PAT 11/15/2016 GREG BERNARD Ot Q27.30 ARTERIOVENOUS MALFORMATION, SITE UNSPECI 11/15/2016 GREG BERNARD Ot Z08 ENCNTR FOR FOLLOW-UP EXAM AFTER TRTMT FO 11/15/2016 GREG BERNARD Ot Z79.899 OTHER CAFETERIA AIDE (CURRENT) DRUG THERAPY 11/15/2016 GREG BERNARD Ot Z85.3 PERSONAL HISTORY OF MALIGNANT NEOPLASM O 11/15/2016 GREG BERNARD Ot Z92.3 PERSONAL HISTORY OF IRRADIATION 03/14/2017 GREG BERNARD Ot D50.0 IRON DEFICIENCY ANEMIA SECONDARY TO BLOO 03/14/2017 GREG BERNARD Ot K12.1 OTHER FORMS OF STOMATITIS 03/14/2017 GREG BERNARD Ot K57.92 DVTRCLI OF INTEST, PART UNSP, W/O PERF O 03/14/2017 GREG BERNARD Ot M81.0 AGE-RELATED OSTEOPOROSIS W/O CURRENT PAT 03/14/2017 GREG BERNARD Simran Ot Q27.30 ARTERIOVENOUS MALFORMATION, SITE UNSPECI 03/14/2017 GREG BERNARD Simran Ot Z08 ENCNTR FOR FOLLOW-UP EXAM AFTER TRTMT FO 03/14/2017 GREG BERNARD Simran Ot Z79.899 OTHER CAFETERIA AIDE (CURRENT) DRUG THERAPY 03/14/2017 JOANA FADIPATO Simran Ot Z85.3 PERSONAL HISTORY OF MALIGNANT NEOPLASM O 03/14/2017 JOANA GREG Khalil Ot Z92.3 PERSONAL HISTORY OF IRRADIATION 03/22/2017 JOANA FADIPATO Simran Ot D50.0 IRON DEFICIENCY ANEMIA SECONDARY TO BLOO 03/22/2017 JONAA, GREG Khalil Ot K12.1 OTHER FORMS OF STOMATITIS 03/22/2017 JOAANGREG Ot K57.92 DVTRCLI OF INTEST, PART UNSP, W/O PERF O 03/22/2017 GREG BERNARD Simran Ot M81.0 AGE-RELATED OSTEOPOROSIS W/O CURRENT PAT 03/22/2017 GREG BERNARD Simran Ot Q27.30 ARTERIOVENOUS MALFORMATION, SITE UNSPECI 03/22/2017 GREG BERNARD Simran Ot Z08 ENCNTR FOR FOLLOW-UP EXAM AFTER TRTMT FO 03/22/2017 GREG BERNARD Simran Ot Z79.899 OTHER HALF-WAY (CURRENT) DRUG THERAPY 03/22/2017 JOANA GREG Khalil Ot Z85.3 PERSONAL HISTORY OF MALIGNANT NEOPLASM O 03/22/2017 JOANA GREG Khalil Ot Z92.3 PERSONAL HISTORY OF IRRADIATION 05/16/2017 JAYASHREE JEAN MD Ot D50.0 IRON DEFICIENCY ANEMIA SECONDARY TO BLOO 05/16/2017 JAYASHREE JEAN MD Ot D62 ACUTE POSTHEMORRHAGIC ANEMIA 05/16/2017 JAYASHREE JEAN MD Ot E03.9 HYPOTHYROIDISM, UNSPECIFIED 05/16/2017 JAYASHREE JEAN MD Ot J44.9 CHRONIC OBSTRUCTIVE PULMONARY DISEASE, U 05/16/2017 JAYASHREE JEAN MD Ot K44.9 DIAPHRAGMATIC HERNIA WITHOUT OBSTRUCTION 05/16/2017 JAYASHREE JEAN MD Ot 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 05/16/2017 JAYASHREE JEAN MD Ot M19.90 UNSPECIFIED OSTEOARTHRITIS, UNSPECIFIED 05/16/2017 TED COONEY, JAYASHREE Valentino Ot 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, UNSP 05/16/2017 TED COONEY, JAYASHREE Valentino Ot Z95.5 PRESENCE OF CORONARY ANGIOPLASTY IMPLANT 05/23/2017 GREG BERNARD Ot D50.0 IRON DEFICIENCY ANEMIA SECONDARY TO BLOO 05/23/2017 GREG BERNARD Ot K12.1 OTHER FORMS OF STOMATITIS 05/23/2017 GREG BERNARD Ot K57.92 DVTRCLI OF INTEST, PART UNSP, W/O PERF O 05/23/2017 GREG BERNARD Ot M81.0 AGE-RELATED OSTEOPOROSIS W/O CURRENT PAT 05/23/2017 GREG BERNARD Ot Q27.30 ARTERIOVENOUS MALFORMATION, SITE UNSPECI 05/23/2017 GREG BERNARD Ot Z08 ENCNTR FOR FOLLOW-UP EXAM AFTER TRTMT FO 05/23/2017 GREG BERNARD Ot Z79.899 OTHER HALF-WAY (CURRENT) DRUG THERAPY 05/23/2017 GREG BERNARD Ot Z85.3 PERSONAL HISTORY OF MALIGNANT NEOPLASM O 05/23/2017 GREG BERNARD Ot Z92.3 PERSONAL HISTORY OF IRRADIATION 08/29/2017 KEARA MAR Ot Z12.31 ENCNTR SCREEN MAMMOGRAM FOR MALIGNANT NE 08/29/2017 GREG BERNARD Ot D50.0 IRON DEFICIENCY ANEMIA SECONDARY TO BLOO 08/29/2017 GREG BERNARD Ot K12.1 OTHER FORMS OF STOMATITIS 08/29/2017 GREG BERNARD Ot K57.92 DVTRCLI OF INTEST, PART UNSP, W/O PERF O 08/29/2017 GREG BERNARD Ot M81.0 AGE-RELATED OSTEOPOROSIS W/O CURRENT PAT 08/29/2017 GREG BERNARD Ot Q27.30 ARTERIOVENOUS MALFORMATION, SITE UNSPECI 08/29/2017 GREG BERNARD Ot Z08 ENCNTR FOR FOLLOW-UP EXAM AFTER TRTMT FO 08/29/2017 GREG BERNARD Ot Z79.899 OTHER HALF-WAY (CURRENT) DRUG THERAPY 08/29/2017 GREG BERNARD Ot Z85.3 PERSONAL HISTORY OF MALIGNANT NEOPLASM O 08/29/2017 GREG BERNARD Ot Z92.3 PERSONAL HISTORY OF IRRADIATION 09/12/2017 KEARA MAR ROLL OFF DRIVER Ot Z12.31 ENCNTR SCREEN MAMMOGRAM FOR MALIGNANT NE 09/17/2017 KEARA MAR ROLL OFF DRIVER Ot Z12.31 ENCNTR SCREEN MAMMOGRAM FOR MALIGNANT NE 09/17/2017 KEARA MAR ROLL OFF DRIVER Ot Z12.31 ENCNTR SCREEN MAMMOGRAM FOR MALIGNANT NE 09/17/2017 KEARA MAR ROLL OFF DRIVER Ot Z12.31 ENCNTR SCREEN MAMMOGRAM FOR MALIGNANT NE 09/18/2017 MARMAXXROXANA Bree ROLL OFF DRIVER Ot Z12.31 ENCNTR SCREEN MAMMOGRAM FOR MALIGNANT NE 09/19/2017 MARKEARA ROLL OFF DRIVER Ot Z12.31 ENCNTR SCREEN MAMMOGRAM FOR MALIGNANT NE 09/20/2017 GREG BERNARD Ot D50.0 IRON DEFICIENCY ANEMIA SECONDARY TO BLOO 09/20/2017 GREG BERNARD Ot K12.1 OTHER FORMS OF STOMATITIS 09/20/2017 GREG BERNARD Ot K57.92 DVTRCLI OF INTEST, PART UNSP, W/O PERF O 09/20/2017 GREG BERNARD Ot M81.0 AGE-RELATED OSTEOPOROSIS W/O CURRENT PAT 09/20/2017 GREG BERNARD Ot Q27.30 ARTERIOVENOUS MALFORMATION, SITE UNSPECI 09/20/2017 GREG BERNARD Ot Z08 ENCNTR FOR FOLLOW-UP EXAM AFTER TRTMT FO 09/20/2017 GREG BERNARD Ot Z79.899 OTHER CAFETERIA AIDE (CURRENT) DRUG THERAPY 09/20/2017 GREG BERNARD Ot Z85.3 PERSONAL HISTORY OF MALIGNANT NEOPLASM O 09/20/2017 GREG BERNARD Ot Z92.3 PERSONAL HISTORY OF IRRADIATION 09/23/2017 KEARA MAR ROLL OFF DRIVER Ot C50.412 MALIG NEOPLASM OF UPPER-OUTER QUADRANT O 09/23/2017 KEARA MAR ROLL OFF DRIVER Ot G89.29 OTHER CHRONIC PAIN 09/23/2017 KEARA MAR S ROLL OFF DRIVER Ot K44.9 DIAPHRAGMATIC HERNIA WITHOUT OBSTRUCTION 09/23/2017 KEARA MAR ROLL OFF DRIVER Ot M17.11 UNILATERAL PRIMARY OSTEOARTHRITIS, RIGHT 09/23/2017 KEARA MAR ROLL OFF DRIVER Ot M17.12 UNILATERAL PRIMARY OSTEOARTHRITIS, LEFT 09/23/2017 KEARA MAR ROLL OFF DRIVER Ot R63.4 ABNORMAL WEIGHT LOSS 09/23/2017 KEARA MAR ROLL OFF DRIVER Ot Z12.31 ENCNTR SCREEN MAMMOGRAM FOR MALIGNANT NE 10/23/2017 KEARA MAR ROLL OFF DRIVER Ot C50.412 MALIG NEOPLASM OF UPPER-OUTER QUADRANT O 10/23/2017 KEARA MAR ROLL OFF DRIVER Ot G89.29 OTHER CHRONIC PAIN 10/23/2017 KEARA MAR ROLL OFF DRIVER Ot K44.9 DIAPHRAGMATIC HERNIA WITHOUT OBSTRUCTION 10/23/2017 KEARA MAR ROLL OFF DRIVER Ot M17.11 UNILATERAL PRIMARY OSTEOARTHRITIS, RIGHT 10/23/2017 KEARA MAR ROLL OFF DRIVER Ot M17.12 UNILATERAL PRIMARY OSTEOARTHRITIS, LEFT 10/23/2017 KEARA MAR ROLL OFF DRIVER Ot R63.4 ABNORMAL WEIGHT LOSS 10/23/2017 KEARA MAR ROLL OFF DRIVER Ot Z12.31 ENCNTR SCREEN MAMMOGRAM FOR MALIGNANT NE 11/26/2017 GREG BERNARD Ot D50.0 IRON DEFICIENCY ANEMIA SECONDARY TO BLOO 11/26/2017 GREG BERNARD Ot K12.1 OTHER FORMS OF STOMATITIS 11/26/2017 GREG BERNARD Ot K57.92 DVTRCLI OF INTEST, PART UNSP, W/O PERF O 11/26/2017 GREG BERNARD Ot M81.0 AGE-RELATED OSTEOPOROSIS W/O CURRENT PAT 11/26/2017 GREG BERNARD Ot Q27.30 ARTERIOVENOUS MALFORMATION, SITE UNSPECI 11/26/2017 GREG BERNARD Ot Z08 ENCNTR FOR FOLLOW-UP EXAM AFTER TRTMT FO 11/26/2017 GREG BERNARD Ot Z79.899 OTHER HALF-WAY (CURRENT) DRUG THERAPY 11/26/2017 GREG BERNARD Ot Z85.3 PERSONAL HISTORY OF MALIGNANT NEOPLASM O 11/26/2017 GREG BERNARD Ot Z92.3 PERSONAL HISTORY OF IRRADIATION 11/27/2017 GREG BERNARD Ot D50.0 IRON DEFICIENCY ANEMIA SECONDARY TO BLOO 11/27/2017 GREG BERNARD Ot K12.1 OTHER FORMS OF STOMATITIS 11/27/2017 GREG BERNARD Ot K57.92 DVTRCLI OF INTEST, PART UNSP, W/O PERF O 11/27/2017 GREG BERNARD Ot M81.0 AGE-RELATED OSTEOPOROSIS W/O CURRENT PAT 11/27/2017 GREG BERNARD Simran Ot Q27.30 ARTERIOVENOUS MALFORMATION, SITE UNSPECI 11/27/2017 GREG BERNARD Simran Ot Z08 ENCNTR FOR FOLLOW-UP EXAM AFTER TRTMT FO 11/27/2017 GREG BERNARD Simran Ot Z79.899 OTHER HALF-WAY (CURRENT) DRUG THERAPY 11/27/2017 GREG BERNARD Simran Ot Z85.3 PERSONAL HISTORY OF MALIGNANT NEOPLASM O 11/27/2017 GREG BERNARD Simran Ot Z92.3 PERSONAL HISTORY OF IRRADIATION 01/29/2018 KEARA MAR ROLL OFF DRIVER Ot M81.0 AGE-RELATED OSTEOPOROSIS W/O CURRENT PAT 02/04/2018 JAYASHREE JEAN MD Ot D64.9 ANEMIA, UNSPECIFIED 02/04/2018 JAYASHREE JEAN MD Ot E03.9 HYPOTHYROIDISM, UNSPECIFIED 02/04/2018 JAYASHREE JEAN MD Ot I25.10 ATHSCL HEART DISEASE OF [place] CORONARY 02/04/2018 JAYASHREE JEAN MD Ot I25.2 OLD MYOCARDIAL INFARCTION 02/04/2018 JAYASHREE JEAN MD Ot I48.2 CHRONIC ATRIAL FIBRILLATION 02/04/2018 JAYASHREE JEAN MD Ot K21.9 GASTRO-ESOPHAGEAL REFLUX DISEASE WITHOUT 02/04/2018 JAYASHREE JEAN MD Ot K44.9 DIAPHRAGMATIC HERNIA WITHOUT OBSTRUCTION 02/04/2018 JAYASHREE JEAN MD Ot K59.09 OTHER CONSTIPATION 02/04/2018 JAYASHREE JEAN MD Ot K73.0 CHRONIC PERSISTENT HEPATITIS, 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 02/04/2018 JAYASHREE JEAN MD Ot K92.2 GASTROINTESTINAL HEMORRHAGE, UNSPECIFIED 02/04/2018 JAYASHREE JEAN MD Ot N83.202 UNSPECIFIED OVARIAN CYST, LEFT SIDE 02/04/2018 JAYASHREE JEAN MD Ot Z79.01 CAFETERIA AIDE (CURRENT) USE OF ANTICOAGULANT 02/04/2018 JAYASHREE JEAN MD Ot Z85.3 PERSONAL HISTORY OF MALIGNANT NEOPLASM O 02/04/2018 JAYASHREE JEAN MD Ot Z86.711 PERSONAL HISTORY OF PULMONARY EMBOLISM 02/04/2018 JAYASHREE JEAN MD Ot Z92.3 PERSONAL HISTORY OF IRRADIATION 02/04/2018 JAYASHREE JEAN MD Ot Z95.5 PRESENCE OF CORONARY ANGIOPLASTY IMPLANT 02/04/2018 JAYASHREE JEAN MD Ot D64.9 ANEMIA, UNSPECIFIED 02/04/2018 JAYASHREE JEAN MD Ot E03.9 HYPOTHYROIDISM, UNSPECIFIED 02/04/2018 JAYASHREE JEAN MD Ot I25.10 ATHSCL HEART DISEASE OF [place] CORONARY 02/04/2018 JAYASHREE JEAN MD Ot I25.2 OLD MYOCARDIAL INFARCTION 02/04/2018 JAYASHREE JEAN MD Ot I48.2 CHRONIC ATRIAL FIBRILLATION 02/04/2018 JAYASHREE JEAN MD Ot K21.9 GASTRO-ESOPHAGEAL REFLUX DISEASE WITHOUT 02/04/2018 JAYASHREE JEAN MD Ot K44.9 DIAPHRAGMATIC HERNIA WITHOUT OBSTRUCTION 02/04/2018 JAYASHREE JEAN MD Ot K59.09 OTHER CONSTIPATION 02/04/2018 JAYASHREE JEAN MD Ot K73.0 CHRONIC PERSISTENT HEPATITIS, NOT ELSEWH 02/04/2018 JAYASHREE JEAN MD Ot K92.2 GASTROINTESTINAL HEMORRHAGE, UNSPECIFIED 02/04/2018 JAYASHREE JEAN MD Ot N83.202 UNSPECIFIED OVARIAN CYST, LEFT SIDE 02/04/2018 JAYASHREE JEAN MD Ot Z79.01 HALF-WAY (CURRENT) USE OF ANTICOAGULANT 02/04/2018 JAYASHREE JEAN MD Ot Z85.3 PERSONAL HISTORY OF MALIGNANT NEOPLASM O 02/04/2018 JAYASHREE JEAN MD Ot Z86.711 PERSONAL HISTORY OF PULMONARY EMBOLISM 02/04/2018 JAYASHREE JEAN MD Ot Z92.3 PERSONAL HISTORY OF IRRADIATION 02/04/2018 JAYASHREE JEAN MD Ot Z95.5 PRESENCE OF CORONARY ANGIOPLASTY IMPLANT 02/11/2018 KEARA MAR Ot M81.0 AGE-RELATED OSTEOPOROSIS W/O CURRENT PAT 02/26/2018 YONAS AGUILAR DO Ot N83.8 OTH NONINFLAMMATORY DISORD OF OVARY, FAL 02/26/2018 YONAS AGUILAR DO Ot Z85.3 PERSONAL HISTORY OF MALIGNANT NEOPLASM O 02/26/2018 KEARA MAR Ot M81.0 AGE-RELATED OSTEOPOROSIS W/O CURRENT PAT 02/28/2018 KEARA MAR Ot C50.412 MALIG NEOPLASM OF UPPER-OUTER QUADRANT O 02/28/2018 MAXX MARROXANA Bree HERNANDEZ Ot M81.0 AGE-RELATED OSTEOPOROSIS W/O CURRENT PAT 03/03/2018 JEFF BANKSYONAS Ot N83.8 OTH NONINFLAMMATORY DISORD OF OVARY, FAL 03/03/2018 DELINDER DO, OYNAS B Ot Z85.3 PERSONAL HISTORY OF MALIGNANT NEOPLASM O 03/07/2018 JEFF DO, YONAS B Ot N83.8 OTH NONINFLAMMATORY DISORD OF OVARY, FAL 03/07/2018 JEFF DO, YONAS B Ot Z85.3 PERSONAL HISTORY OF MALIGNANT NEOPLASM O 03/13/2018 KEARA MAR Ot C50.412 MALIG NEOPLASM OF UPPER-OUTER QUADRANT O 03/13/2018 KEARA MAR Ot M81.0 AGE-RELATED OSTEOPOROSIS W/O CURRENT PAT 03/21/2018 GREG BERNARD Ot D50.0 IRON DEFICIENCY ANEMIA SECONDARY TO BLOO 03/21/2018 GREG BERNARD Ot K12.1 OTHER FORMS OF STOMATITIS 03/21/2018 GREG BERNARD Ot K57.92 DVTRCLI OF INTEST, PART UNSP, W/O PERF O 03/21/2018 GREG BERNARD Ot M81.0 AGE-RELATED OSTEOPOROSIS W/O CURRENT PAT 03/21/2018 GREG BERNARD Ot Q27.30 ARTERIOVENOUS MALFORMATION, SITE UNSPECI 03/21/2018 GREG BERNARD Ot Z08 ENCNTR FOR FOLLOW-UP EXAM AFTER TRTMT FO 03/21/2018 GREG BERNARD Ot Z79.899 OTHER HALF-WAY (CURRENT) DRUG THERAPY 03/21/2018 GREG BERNARD Ot Z85.3 PERSONAL HISTORY OF MALIGNANT NEOPLASM O 03/21/2018 GREG BERNARD Ot Z92.3 PERSONAL HISTORY OF IRRADIATION Procedures Code Description Performed By Performed On 45.23 10/23/2013 45.16 10/26/2013 [id number] INSPECTION OF UPPER INTESTINAL TRACT, EN 05/16/2017 [id number] INSPECTION OF LOWER INTESTINAL TRACT, EN 05/16/2017 Results Test Result Range Complete blood count (CBC) with automated white blood cell (WBC) differential - 04/29/16 19:45 Blood leukocytes automated count (number/volume) 12.2 10*3/uL 4.3-11.0 Blood erythrocytes automated count (number/volume) 4.39 10*6/uL 4.35-5.85 Venous blood hemoglobin measurement (mass/volume) 12.5 g/dL 11.5-16.0 Blood hematocrit (volume fraction) 38 % 35-52 Automated erythrocyte mean corpuscular volume 87 [foz_us] 80-99 Automated erythrocyte mean corpuscular hemoglobin (mass per erythrocyte) 29 pg 25-34 Automated erythrocyte mean corpuscular hemoglobin concentration measurement ( mass/volume) 33 g/dL 32-36 Automated erythrocyte distribution width ratio 14.4 % 10.0-14.5 Automated blood platelet count (count/volume) 230 10*3/uL 130-400 Automated blood platelet mean volume measurement 10.9 [foz_us] 7.4-10.4 Automated blood neutrophils/100 leukocytes 81 % 42-75 Automated blood lymphocytes/100 leukocytes 9 % 12-44 Blood monocytes/100 leukocytes 7 % 0-12 Automated blood eosinophils/100 leukocytes 3 % 0-10 Automated blood basophils/100 leukocytes 0 % 0-10 Blood neutrophils automated count (number/volume) 9.9 10*3 1.8-7.8 Blood lymphocytes automated count (number/volume) 1.1 10*3 1.0-4.0 Blood monocytes automated count (number/volume) 0.9 10*3 0.0-1.0 Automated eosinophil count 0.3 10*3/uL 0.0-0.3 Automated blood basophil count (count/volume) 0.1 10*3/uL 0.0-0.1 PT panel in platelet poor plasma by coagulation assay - 04/29/16 19:45 Prothrombin time (PT) in platelet poor plasma by coagulation assay 13.9 s 12.2-14.7 INR in platelet poor plasma or blood by coagulation assay 1.1 0.8-1.4 Comprehensive metabolic panel - 04/29/16 19:45 Serum or plasma sodium measurement (moles/volume) 140 mmol/L 135-145 Serum or plasma potassium measurement (moles/volume) 4.1 mmol/L 3.6-5.0 Serum or plasma chloride measurement (moles/volume) 108 mmol/L 98-107 Carbon dioxide 22 mmol/L 21-32 Serum or plasma anion gap determination (moles/volume) 10 mmol/L 5-14 Serum or plasma urea nitrogen measurement (mass/volume) 21 mg/dL 7-18 Serum or plasma creatinine measurement (mass/volume) 0.68 mg/dL 0.60-1.30 Serum or plasma urea nitrogen/creatinine mass ratio 31 NRG Serum or plasma creatinine measurement with calculation of estimated glomerular filtration rate > NRG Serum or plasma glucose measurement (mass/volume) 105 mg/dL 70-105 Serum or plasma calcium measurement (mass/volume) 9.3 mg/dL 8.5-10.1 Serum or plasma total bilirubin measurement (mass/volume) 0.4 mg/dL 0.1-1.0 Serum or plasma alkaline phosphatase measurement (enzymatic activity/volume) 77 U/L 40-136 Serum or plasma aspartate aminotransferase measurement (enzymatic activity/ volume) 20 U/L 5-34 Serum or plasma alanine aminotransferase measurement (enzymatic activity/volume ) 16 U/L 0-55 Serum or plasma protein measurement (mass/volume) 7.2 g/dL 6.4-8.2 Serum or plasma albumin measurement (mass/volume) 4.0 g/dL 3.2-4.5 Complete urinalysis with reflex to culture - 04/29/16 20:05 Urine color determination YELLOW NRG Urine clarity determination CLEAR NRG Urine pH measurement by test strip 6.5 5-9 Specific gravity of urine by test strip 1.015 1.016- 1.022 Urine protein assay by test strip, semi-quantitative NEGATIVE NEGATIVE Urine glucose detection by automated test strip NEGATIVE NEGATIVE Erythrocytes detection in urine sediment by light microscopy 1+ NEGATIVE Urine ketones detection by automated test strip 1+ NEGATIVE Urine nitrite detection by test strip NEGATIVE NEGATIVE Urine total bilirubin detection by test strip NEGATIVE NEGATIVE Urine urobilinogen measurement by automated test strip (mass/volume) 1 mg/dL NORMAL Urine leukocyte esterase detection by dipstick 1+ NEGATIVE Automated urine sediment erythrocyte count by microscopy (number/high power field) [HPF] NRG Automated urine sediment leukocyte count by microscopy (number/high power field ) [HPF] NRG Bacteria detection in urine sediment by light microscopy NEGATIVE NRG Squamous epithelial cells detection in urine sediment by light microscopy 2-5 NRG Crystals detection in urine sediment by light microscopy NONE NRG Casts detection in urine sediment by light microscopy NONE NRG Mucus detection in urine sediment by light microscopy SMALL NRG Complete urinalysis with reflex to culture NO NRG Complete blood count (CBC) with automated white blood cell (WBC) differential - 05/13/17 23:59 Blood leukocytes automated count (number/volume) 11.8 10*3/uL 4.3-11.0 Blood erythrocytes automated count (number/volume) 3.79 10*6/uL 4.35-5.85 Venous blood hemoglobin measurement (mass/volume) 10.7 g/dL 11.5-16.0 Blood hematocrit (volume fraction) 33 % 35-52 Automated erythrocyte mean corpuscular volume 87 [foz_us] 80-99 Automated erythrocyte mean corpuscular hemoglobin (mass per erythrocyte) 28 pg 25-34 Automated erythrocyte mean corpuscular hemoglobin concentration measurement ( mass/volume) 32 g/dL 32-36 Automated erythrocyte distribution width ratio 18.2 % 10.0-14.5 Automated blood platelet count (count/volume) 214 10*3/uL 130-400 Automated blood platelet mean volume measurement 10.4 [foz_us] 7.4-10.4 Automated blood neutrophils/100 leukocytes 87 % 42-75 Automated blood lymphocytes/100 leukocytes 6 % 12-44 Blood monocytes/100 leukocytes 6 % 0-12 Automated blood eosinophils/100 leukocytes 1 % 0-10 Automated blood basophils/100 leukocytes 0 % 0-10 Blood neutrophils automated count (number/volume) 10.2 10*3 1.8-7.8 Blood lymphocytes automated count (number/volume) 0.7 10*3 1.0-4.0 Blood monocytes automated count (number/volume) 0.7 10*3 0.0-1.0 Automated eosinophil count 0.1 10*3/uL 0.0-0.3 Automated blood basophil count (count/volume) 0.0 10*3/uL 0.0-0.1 Blood manual differential performed detection - 05/13/17 23:59 Blood monocytes/100 leukocytes 4 % NRG Manual blood segmented neutrophils/100 leukocytes 91 % NRG Blood band neutrophils/100 leukocytes 0 % NRG Manual blood lymphocytes/100 leukocytes 5 % NRG Manual eosinophils/100 leukocytes in nose 0 % NRG Manual blood basophils/100 leukocytes 0 % NRG Blood anisocytosis detection by light microscopy MODERATE NRG Blood ovalocytes detection by light microscopy SLIGHT NRG Blood hypochromia detection by light microscopy SLIGHT NRG Complete blood count (CBC) with automated white blood cell (WBC) differential - 05/14/17 05:13 Blood leukocytes automated count (number/volume) 6.9 10*3/uL 4.3-11.0 Blood erythrocytes automated count (number/volume) 3.20 10*6/uL 4.35-5.85 Venous blood hemoglobin measurement (mass/volume) 9.1 g/dL 11.5-16.0 Blood hematocrit (volume fraction) 28 % 35-52 Automated erythrocyte mean corpuscular volume 89 [foz_us] 80-99 Automated erythrocyte mean corpuscular hemoglobin (mass per erythrocyte) 28 pg 25-34 Automated erythrocyte mean corpuscular hemoglobin concentration measurement ( mass/volume) 32 g/dL 32-36 Automated erythrocyte distribution width ratio 18.3 % 10.0-14.5 Automated blood platelet count (count/volume) 186 10*3/uL 130-400 Automated blood platelet mean volume measurement 11.0 [foz_us] 7.4-10.4 Automated blood neutrophils/100 leukocytes 73 % 42-75 Automated blood lymphocytes/100 leukocytes 15 % 12-44 Blood monocytes/100 leukocytes 9 % 0-12 Automated blood eosinophils/100 leukocytes 3 % 0-10 Automated blood basophils/100 leukocytes 0 % 0-10 Blood neutrophils automated count (number/volume) 5.0 10*3 1.8-7.8 Blood lymphocytes automated count (number/volume) 1.0 10*3 1.0-4.0 Blood monocytes automated count (number/volume) 0.6 10*3 0.0-1.0 Automated eosinophil count 0.2 10*3/uL 0.0-0.3 Automated blood basophil count (count/volume) 0.0 10*3/uL 0.0-0.1 Comprehensive metabolic panel - 05/14/17 05:13 Serum or plasma sodium measurement (moles/volume) 141 mmol/L 135-145 Serum or plasma potassium measurement (moles/volume) 4.1 mmol/L 3.6-5.0 Serum or plasma chloride measurement (moles/volume) 111 mmol/L 98-107 Carbon dioxide 25 mmol/L 21-32 Serum or plasma anion gap determination (moles/volume) 5 mmol/L 5-14 Serum or plasma urea nitrogen measurement (mass/volume) 20 mg/dL 7-18 Serum or plasma creatinine measurement (mass/volume) 0.64 mg/dL 0.60-1.30 Serum or plasma urea nitrogen/creatinine mass ratio 31 NRG Serum or plasma creatinine measurement with calculation of estimated glomerular filtration rate > NRG Serum or plasma glucose measurement (mass/volume) 94 mg/dL 70-105 Serum or plasma calcium measurement (mass/volume) 8.0 mg/dL 8.5-10.1 Serum or plasma total bilirubin measurement (mass/volume) 0.4 mg/dL 0.1-1.0 Serum or plasma alkaline phosphatase measurement (enzymatic activity/volume) 66 U/L 40-136 Serum or plasma aspartate aminotransferase measurement (enzymatic activity/ volume) 15 U/L 5-34 Serum or plasma alanine aminotransferase measurement (enzymatic activity/volume ) 12 U/L 0-55 Serum or plasma protein measurement (mass/volume) 5.4 g/dL 6.4-8.2 Serum or plasma albumin measurement (mass/volume) 3.1 g/dL 3.2-4.5 Stool occult blood screen - 05/14/17 11:28 Stool gastrointestinal hemoglobin detection POSITIVE NEGATIVE Automated blood complete blood count (hemogram) panel - 05/14/17 18:05 Blood leukocytes automated count (number/volume) 7.2 10*3/uL 4.3-11.0 Blood erythrocytes automated count (number/volume) 3.18 10*6/uL 4.35-5.85 Venous blood hemoglobin measurement (mass/volume) 9.0 g/dL 11.5-16.0 Blood hematocrit (volume fraction) 29 % 35-52 Automated erythrocyte mean corpuscular volume 90 [foz_us] 80-99 Automated erythrocyte mean corpuscular hemoglobin (mass per erythrocyte) 28 pg 25-34 Automated erythrocyte mean corpuscular hemoglobin concentration measurement ( mass/volume) 32 g/dL 32-36 Automated erythrocyte distribution width ratio 18.4 % 10.0-14.5 Automated blood platelet count (count/volume) 180 10*3/uL 130-400 Automated blood platelet mean volume measurement 10.7 [foz_us] 7.4-10.4 Automated blood complete blood count (hemogram) panel - 05/15/17 00:42 Blood leukocytes automated count (number/volume) 6.4 10*3/uL 4.3-11.0 Blood erythrocytes automated count (number/volume) 2.64 10*6/uL 4.35-5.85 Venous blood hemoglobin measurement (mass/volume) 7.4 g/dL 11.5-16.0 Blood hematocrit (volume fraction) 24 % 35-52 Automated erythrocyte mean corpuscular volume 91 [foz_us] 80-99 Automated erythrocyte mean corpuscular hemoglobin (mass per erythrocyte) 28 pg 25-34 Automated erythrocyte mean corpuscular hemoglobin concentration measurement ( mass/volume) 31 g/dL 32-36 Automated erythrocyte distribution width ratio 18.4 % 10.0-14.5 Automated blood platelet count (count/volume) 165 10*3/uL 130-400 Automated blood platelet mean volume measurement 10.8 [foz_us] 7.4-10.4 RED CELLS LEUKO REDUCED AS1 - 05/15/17 02:00 RED CELLS LEUKO REDUCED AS1 TRANSFUSED 05/15/17 0540 [facility] [place] Blood type T Indirect antibody screen panel - 05/15/17 02:00 ABO+Rh group ON NRG Transfusion band number [id number] NR Blood group antibody screen NEGATIVE NRG Automated blood complete blood count (hemogram) panel - 05/15/17 08:20 Blood leukocytes automated count (number/volume) 7.1 10*3/uL 4.3-11.0 Blood erythrocytes automated count (number/volume) 3.78 10*6/uL 4.35-5.85 Venous blood hemoglobin measurement (mass/volume) 10.9 g/dL 11.5-16.0 Blood hematocrit (volume fraction) 34 % 35-52 Automated erythrocyte mean corpuscular volume 89 [foz_us] 80-99 Automated erythrocyte mean corpuscular hemoglobin (mass per erythrocyte) 29 pg 25-34 Automated erythrocyte mean corpuscular hemoglobin concentration measurement ( mass/volume) 32 g/dL 32-36 Automated erythrocyte distribution width ratio 17.4 % 10.0-14.5 Automated blood platelet count (count/volume) 174 10*3/uL 130-400 Automated blood platelet mean volume measurement 10.8 [foz_us] 7.4-10.4 Automated blood complete blood count (hemogram) panel - 05/15/17 13:39 Blood leukocytes automated count (number/volume) 7.4 10*3/uL 4.3-11.0 Blood erythrocytes automated count (number/volume) 3.91 10*6/uL 4.35-5.85 Venous blood hemoglobin measurement (mass/volume) 11.4 g/dL 11.5-16.0 Blood hematocrit (volume fraction) 35 % 35-52 Automated erythrocyte mean corpuscular volume 89 [foz_us] 80-99 Automated erythrocyte mean corpuscular hemoglobin (mass per erythrocyte) 29 pg 25-34 Automated erythrocyte mean corpuscular hemoglobin concentration measurement ( mass/volume) 33 g/dL 32-36 Automated erythrocyte distribution width ratio 17.4 % 10.0-14.5 Automated blood platelet count (count/volume) 162 10*3/uL 130-400 Automated blood platelet mean volume measurement 10.9 [foz_us] 7.4-10.4 Automated blood complete blood count (hemogram) panel - 05/15/17 17:55 Blood leukocytes automated count (number/volume) 7.9 10*3/uL 4.3-11.0 Blood erythrocytes automated count (number/volume) 4.07 10*6/uL 4.35-5.85 Venous blood hemoglobin measurement (mass/volume) 11.7 g/dL 11.5-16.0 Blood hematocrit (volume fraction) 36 % 35-52 Automated erythrocyte mean corpuscular volume 89 [foz_us] 80-99 Automated erythrocyte mean corpuscular hemoglobin (mass per erythrocyte) 29 pg 25-34 Automated erythrocyte mean corpuscular hemoglobin concentration measurement ( mass/volume) 32 g/dL 32-36 Automated erythrocyte distribution width ratio 17.4 % 10.0-14.5 Automated blood platelet count (count/volume) 170 10*3/uL 130-400 Automated blood platelet mean volume measurement 11.2 [foz_us] 7.4-10.4 Automated blood complete blood count (hemogram) panel - 05/16/17 00:38 Blood leukocytes automated count (number/volume) 6.3 10*3/uL 4.3-11.0 Blood erythrocytes automated count (number/volume) 3.50 10*6/uL 4.35-5.85 Venous blood hemoglobin measurement (mass/volume) 10.0 g/dL 11.5-16.0 Blood hematocrit (volume fraction) 31 % 35-52 Automated erythrocyte mean corpuscular volume 88 [foz_us] 80-99 Automated erythrocyte mean corpuscular hemoglobin (mass per erythrocyte) 29 pg 25-34 Automated erythrocyte mean corpuscular hemoglobin concentration measurement ( mass/volume) 33 g/dL 32-36 Automated erythrocyte distribution width ratio 17.1 % 10.0-14.5 Automated blood platelet count (count/volume) 162 10*3/uL 130-400 Automated blood platelet mean volume measurement 11.0 [foz_us] 7.4-10.4 Automated blood complete blood count (hemogram) panel - 05/16/17 06:35 Blood leukocytes automated count (number/volume) 5.4 10*3/uL 4.3-11.0 Blood erythrocytes automated count (number/volume) 3.59 10*6/uL 4.35-5.85 Venous blood hemoglobin measurement (mass/volume) 10.3 g/dL 11.5-16.0 Blood hematocrit (volume fraction) 31 % 35-52 Automated erythrocyte mean corpuscular volume 88 [foz_us] 80-99 Automated erythrocyte mean corpuscular hemoglobin (mass per erythrocyte) 29 pg 25-34 Automated erythrocyte mean corpuscular hemoglobin concentration measurement ( mass/volume) 33 g/dL 32-36 Automated erythrocyte distribution width ratio 17.1 % 10.0-14.5 Automated blood platelet count (count/volume) 167 10*3/uL 130-400 Automated blood platelet mean volume measurement 11.0 [foz_us] 7.4-10.4 Comprehensive metabolic panel - 05/16/17 06:35 Serum or plasma sodium measurement (moles/volume) 144 mmol/L 135-145 Serum or plasma potassium measurement (moles/volume) 3.4 mmol/L 3.6-5.0 Serum or plasma chloride measurement (moles/volume) 113 mmol/L 98-107 Carbon dioxide 22 mmol/L 21-32 Serum or plasma anion gap determination (moles/volume) 9 mmol/L 5-14 Serum or plasma urea nitrogen measurement (mass/volume) 5 mg/dL 7-18 Serum or plasma creatinine measurement (mass/volume) 0.51 mg/dL 0.60-1.30 Serum or plasma urea nitrogen/creatinine mass ratio 10 NRG Serum or plasma creatinine measurement with calculation of estimated glomerular filtration rate > NRG Serum or plasma glucose measurement (mass/volume) 82 mg/dL 70-105 Serum or plasma calcium measurement (mass/volume) 7.5 mg/dL 8.5-10.1 Serum or plasma total bilirubin measurement (mass/volume) 0.6 mg/dL 0.1-1.0 Serum or plasma alkaline phosphatase measurement (enzymatic activity/volume) 58 U/L 40-136 Serum or plasma aspartate aminotransferase measurement (enzymatic activity/ volume) 16 U/L 5-34 Serum or plasma alanine aminotransferase measurement (enzymatic activity/volume ) 11 U/L 0-55 Serum or plasma protein measurement (mass/volume) 5.4 g/dL 6.4-8.2 Serum or plasma albumin measurement (mass/volume) 3.1 g/dL 3.2-4.5 [id number] - 02/02/18 00:00 [id number] SPECIMEN AVAILABLE [facility] [place] Complete blood count (CBC) with automated white blood cell (WBC) differential - 02/03/18 00:00 Blood leukocytes automated count (number/volume) 8.1 10*3/uL 4.3-11.0 Blood erythrocytes automated count (number/volume) 3.28 10*6/uL 4.35-5.85 Venous blood hemoglobin measurement (mass/volume) 9.3 g/dL 11.5-16.0 Blood hematocrit (volume fraction) 30 % 35-52 Automated erythrocyte mean corpuscular volume 90 [foz_us] 80-99 Automated erythrocyte mean corpuscular hemoglobin (mass per erythrocyte) 28 pg 25-34 Automated erythrocyte mean corpuscular hemoglobin concentration measurement ( mass/volume) 31 g/dL 32-36 Automated erythrocyte distribution width ratio 14.1 % 10.0-14.5 Automated blood platelet count (count/volume) 239 10*3/uL 130-400 Automated blood platelet mean volume measurement 11.0 [foz_us] 7.4-10.4 Automated blood neutrophils/100 leukocytes 71 % 42-75 Automated blood lymphocytes/100 leukocytes 15 % 12-44 Blood monocytes/100 leukocytes 8 % 0-12 Automated blood eosinophils/100 leukocytes 5 % 0-10 Automated blood basophils/100 leukocytes 0 % 0-10 Blood neutrophils automated count (number/volume) 5.8 10*3 1.8-7.8 Blood lymphocytes automated count (number/volume) 1.2 10*3 1.0-4.0 Blood monocytes automated count (number/volume) 0.7 10*3 0.0-1.0 Automated eosinophil count 0.4 10*3/uL 0.0-0.3 Automated blood basophil count (count/volume) 0.0 10*3/uL 0.0-0.1 PT panel in platelet poor plasma by coagulation assay - 02/03/18 00:00 Prothrombin time (PT) in platelet poor plasma by coagulation assay 15.1 s 12.2-14.7 INR in platelet poor plasma or blood by coagulation assay 1.2 0.8-1.4 Activated partial thromboplastin time (aPTT) in platelet poor plasma bycoagulation assay - 02/03/18 00:00 Activated partial thromboplastin time (aPTT) in platelet poor plasma bycoagulation assay 28 s 24-35 Comprehensive metabolic panel - 02/03/18 00:00 Serum or plasma sodium measurement (moles/volume) 143 mmol/L 135-145 Serum or plasma potassium measurement (moles/volume) 4.2 mmol/L 3.6-5.0 Serum or plasma chloride measurement (moles/volume) 109 mmol/L 98-107 Carbon dioxide 23 mmol/L 21-32 Serum or plasma anion gap determination (moles/volume) 11 mmol/L 5-14 Serum or plasma urea nitrogen measurement (mass/volume) 24 mg/dL 7-18 Serum or plasma creatinine measurement (mass/volume) 0.69 mg/dL 0.60-1.30 Serum or plasma urea nitrogen/creatinine mass ratio 35 NRG Serum or plasma creatinine measurement with calculation of estimated glomerular filtration rate > NRG Serum or plasma glucose measurement (mass/volume) 103 mg/dL 70-105 Serum or plasma calcium measurement (mass/volume) 9.7 mg/dL 8.5-10.1 Serum or plasma total bilirubin measurement (mass/volume) 0.3 mg/dL 0.1-1.0 Serum or plasma alkaline phosphatase measurement (enzymatic activity/volume) 97 U/L 40-136 Serum or plasma aspartate aminotransferase measurement (enzymatic activity/ volume) 16 U/L 5-34 Serum or plasma alanine aminotransferase measurement (enzymatic activity/volume ) 12 U/L 0-55 Serum or plasma protein measurement (mass/volume) 6.6 g/dL 6.4-8.2 Serum or plasma albumin measurement (mass/volume) 3.6 g/dL 3.2-4.5 Complete urinalysis with reflex to culture - 02/03/18 00:18 Urine color determination YELLOW NRG Urine clarity determination SLIGHTLY CLOUDY NRG Urine pH measurement by test strip 6 5-9 Specific gravity of urine by test strip 1.020 1.016- 1.022 Urine protein assay by test strip, semi-quantitative 3+ NEGATIVE Urine glucose detection by automated test strip NEGATIVE NEGATIVE Erythrocytes detection in urine sediment by light microscopy 5+ NEGATIVE Urine ketones detection by automated test strip NEGATIVE NEGATIVE Urine nitrite detection by test strip NEGATIVE NEGATIVE Urine total bilirubin detection by test strip NEGATIVE NEGATIVE Urine urobilinogen measurement by automated test strip (mass/volume) NORMAL NORMAL Urine leukocyte esterase detection by dipstick 2+ NEGATIVE Automated urine sediment erythrocyte count by microscopy (number/high power field) TNTC NRG Automated urine sediment leukocyte count by microscopy (number/high power field ) [HPF] NRG Bacteria detection in urine sediment by light microscopy FEW NRG Squamous epithelial cells detection in urine sediment by light microscopy 2-5 NRG Crystals detection in urine sediment by light microscopy NONE NRG Casts detection in urine sediment by light microscopy NONE NRG Mucus detection in urine sediment by light microscopy LARGE NRG Complete urinalysis with reflex to culture YES NRG Bacterial urine culture - 02/03/18 00:18 Bacterial urine culture SEE COMMEN NRG COLONY COUNT . NRG Complete blood count (CBC) with automated white blood cell (WBC) differential - 02/03/18 06:55 Blood leukocytes automated count (number/volume) 6.8 10*3/uL 4.3-11.0 Blood erythrocytes automated count (number/volume) 2.97 10*6/uL 4.35-5.85 Venous blood hemoglobin measurement (mass/volume) 8.4 g/dL 11.5-16.0 Blood hematocrit (volume fraction) 27 % 35-52 Automated erythrocyte mean corpuscular volume 91 [foz_us] 80-99 Automated erythrocyte mean corpuscular hemoglobin (mass per erythrocyte) 28 pg 25-34 Automated erythrocyte mean corpuscular hemoglobin concentration measurement ( mass/volume) 31 g/dL 32-36 Automated erythrocyte distribution width ratio 14.2 % 10.0-14.5 Automated blood platelet count (count/volume) 196 10*3/uL 130-400 Automated blood platelet mean volume measurement 10.6 [foz_us] 7.4-10.4 Automated blood neutrophils/100 leukocytes 67 % 42-75 Automated blood lymphocytes/100 leukocytes 16 % 12-44 Blood monocytes/100 leukocytes 10 % 0-12 Automated blood eosinophils/100 leukocytes 7 % 0-10 Automated blood basophils/100 leukocytes 0 % 0-10 Blood neutrophils automated count (number/volume) 4.6 10*3 1.8-7.8 Blood lymphocytes automated count (number/volume) 1.1 10*3 1.0-4.0 Blood monocytes automated count (number/volume) 0.7 10*3 0.0-1.0 Automated eosinophil count 0.5 10*3/uL 0.0-0.3 Automated blood basophil count (count/volume) 0.0 10*3/uL 0.0-0.1 Comprehensive metabolic panel - 02/03/18 06:55 Serum or plasma sodium measurement (moles/volume) 143 mmol/L 135-145 Serum or plasma potassium measurement (moles/volume) 4.1 mmol/L 3.6-5.0 Serum or plasma chloride measurement (moles/volume) 113 mmol/L 98-107 Carbon dioxide 24 mmol/L 21-32 Serum or plasma anion gap determination (moles/volume) 6 mmol/L 5-14 Serum or plasma urea nitrogen measurement (mass/volume) 21 mg/dL 7-18 Serum or plasma creatinine measurement (mass/volume) 0.63 mg/dL 0.60-1.30 Serum or plasma urea nitrogen/creatinine mass ratio 33 NRG Serum or plasma creatinine measurement with calculation of estimated glomerular filtration rate > NRG Serum or plasma glucose measurement (mass/volume) 95 mg/dL 70-105 Serum or plasma calcium measurement (mass/volume) 8.8 mg/dL 8.5-10.1 Serum or plasma total bilirubin measurement (mass/volume) 0.4 mg/dL 0.1-1.0 Serum or plasma alkaline phosphatase measurement (enzymatic activity/volume) 81 U/L 40-136 Serum or plasma aspartate aminotransferase measurement (enzymatic activity/ volume) 12 U/L 5-34 Serum or plasma alanine aminotransferase measurement (enzymatic activity/volume ) 9 U/L 0-55 Serum or plasma protein measurement (mass/volume) 5.6 g/dL 6.4-8.2 Serum or plasma albumin measurement (mass/volume) 3.2 g/dL 3.2-4.5 Serum or plasma phosphate measurement (mass/volume) - 02/03/18 06:55 Serum or plasma phosphate measurement (mass/volume) 3.3 mg/dL 2.3-4.7 Magnesium - 02/03/18 06:55 Magnesium 1.8 mg/dL 1.8-2.4 Stool occult blood screen - 02/03/18 08:02 Stool gastrointestinal hemoglobin detection POSITIVE NEGATIVE Complete blood count (CBC) with automated white blood cell (WBC) differential - 02/04/18 03:15 Blood leukocytes automated count (number/volume) 4.7 10*3/uL 4.3-11.0 Blood erythrocytes automated count (number/volume) 2.79 10*6/uL 4.35-5.85 Venous blood hemoglobin measurement (mass/volume) 8.0 g/dL 11.5-16.0 Blood hematocrit (volume fraction) 26 % 35-52 Automated erythrocyte mean corpuscular volume 91 [foz_us] 80-99 Automated erythrocyte mean corpuscular hemoglobin (mass per erythrocyte) 29 pg 25-34 Automated erythrocyte mean corpuscular hemoglobin concentration measurement ( mass/volume) 31 g/dL 32-36 Automated erythrocyte distribution width ratio 14.0 % 10.0-14.5 Automated blood platelet count (count/volume) 192 10*3/uL 130-400 Automated blood platelet mean volume measurement 11.2 [foz_us] 7.4-10.4 Automated blood neutrophils/100 leukocytes 63 % 42-75 Automated blood lymphocytes/100 leukocytes 15 % 12-44 Blood monocytes/100 leukocytes 11 % 0-12 Automated blood eosinophils/100 leukocytes 11 % 0-10 Automated blood basophils/100 leukocytes 0 % 0-10 Blood neutrophils automated count (number/volume) 2.9 10*3 1.8-7.8 Blood lymphocytes automated count (number/volume) 0.7 10*3 1.0-4.0 Blood monocytes automated count (number/volume) 0.5 10*3 0.0-1.0 Automated eosinophil count 0.5 10*3/uL 0.0-0.3 Automated blood basophil count (count/volume) 0.0 10*3/uL 0.0-0.1 Whole blood basic metabolic panel - 02/04/18 03:15 Serum or plasma sodium measurement (moles/volume) 143 mmol/L 135-145 Serum or plasma potassium measurement (moles/volume) 3.6 mmol/L 3.6-5.0 Serum or plasma chloride measurement (moles/volume) 114 mmol/L 98-107 Carbon dioxide 22 mmol/L 21-32 Serum or plasma anion gap determination (moles/volume) 7 mmol/L 5-14 Serum or plasma urea nitrogen measurement (mass/volume) 16 mg/dL 7-18 Serum or plasma creatinine measurement (mass/volume) 0.56 mg/dL 0.60-1.30 Serum or plasma urea nitrogen/creatinine mass ratio 29 NRG Serum or plasma creatinine measurement with calculation of estimated glomerular filtration rate > NRG Serum or plasma glucose measurement (mass/volume) 89 mg/dL 70-105 Serum or plasma calcium measurement (mass/volume) 9.2 mg/dL 8.5-10.1 Serum or plasma phosphate measurement (mass/volume) - 02/04/18 03:15 Serum or plasma phosphate measurement (mass/volume) 3.1 mg/dL 2.3-4.7 Magnesium - 02/04/18 03:15 Magnesium 1.5 mg/dL 1.8-2.4 Streptococcus pyogenes antigen detection - 03/22/18 16:04 Streptococcus pyogenes antigen detection NEGATIVE NEGATIVE Bacterial throat culture - 03/22/18 16:04 Bacterial throat culture NBS NRG Encounters ACCT No. Visit Date/Time Discharge Status Pt. 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 [id number] 02/25/2018 11:55:00 02/25/2018 23:59:59 CLS Outpatient YONAS AGUILAR DO [facility] RAD LLQ PAIN,LEFT ADNERAL CYST [id number] 02/02/2018 22:09:00 02/04/2018 11:02:00 DIS Outpatient JAYASHREE JEAN MD [facility] ICU ACUTE LOWER GI BLEED; ELIQUIS THERAPY ANEMIA [id number] 11/26/2017 10:20:00 11/26/2017 00:01:00 DIS Outpatient JOANAGREG Simran [facility] ONC [id number] 09/20/2017 10:21:00 09/20/2017 23:59:59 CLS Outpatient KEARA MAR ROLL OFF DRIVER [facility] CARD BACK PAIN [id number] 08/28/2017 15:44:00 08/28/2017 23:59:59 CLS Preadmit KEARA MAR ROLL OFF DRIVER [facility] RAD SCREENING [id number] 03/27/2017 14:53:00 05/23/2017 00:01:00 DIS Outpatient GREG BERNARD [facility] ONC [id number] 05/15/2017 08:25:00 05/16/2017 17:20:00 DIS Inpatient JAYASHREE JEAN MD [facility] 4TH GI BLEED [id number] 08/16/2016 14:32:00 11/14/2016 00:01:00 DIS Outpatient GREG BERNARD [facility] ONC [id number] 04/29/2016 18:44:00 04/29/2016 22:19:00 DIS Emergency CHU GRADY APRN [facility] ER FALL/R WRIST AND R LEG PAIN [id number] 01/25/2016 09:40:00 04/17/2016 00:01:00 DIS Outpatient GREG BERNARD [facility] ONC [id number] 04/06/2016 09:04:00 04/06/2016 23:59:59 CLS Outpatient GREG BERNARD [facility] RAD 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 [id number] 01/19/2016 10:04:00 01/19/2016 23:59:59 CLS Outpatient GERG BERNARD [facility] RAD OSTEOPOROSIS [id number] 09/14/2015 14:00:00 09/14/2015 23:59:59 CLS Outpatient KEARA MAR ROLL OFF DRIVER [facility] RAD BREAST CANCER [id number] 09/08/2015 12:49:00 09/08/2015 23:59:59 CLS Outpatient KEARA MAR S ROLL OFF DRIVER [facility] ONC [id number] 03/07/2015 12:33:00 06/05/2015 00:01:00 DIS Outpatient GREG BERNARD [facility] ONC [id number] 03/14/2015 13:38:00 03/14/2015 23:59:59 CLS Outpatient KEARA MAR S ROLL OFF DRIVER [facility] RAD DCIS [id number] 03/07/2015 12:31:00 03/07/2015 23:59:59 CLS Outpatient KEARA MAR ROLL OFF DRIVER [facility] ONC [id number] 10/21/2014 12:46:00 10/21/2014 23:59:59 CLS Outpatient JOANA, FADIPATO Khalil [facility] ONC [id number] 03/10/2014 09:41:00 06/08/2014 00:01:00 DIS Outpatient GREG BERNARD [facility] ONC [id number] 05/06/2014 09:07:00 05/06/2014 23:59:59 CLS Outpatient KEARA MAR ROLL OFF DRIVER [facility] RAD SCREENING [id number] 10/21/2013 09:45:00 01/19/2014 00:01:00 DIS Outpatient JOANA, FADIPATO Khalil [facility] ONC [id number] 01/13/2014 08:44:00 01/13/2014 23:59:59 CLS Outpatient KEARA MAR ROLL OFF DRIVER [facility] ONC [id number] 11/19/2013 14:49:00 11/19/2013 23:59:59 CLS Outpatient DILMA CA MD [facility] LAB GI BLEED [id number] 10/22/2013 13:33:00 10/26/2013 11:15:00 DIS Inpatient DILMA CA MD [facility] SURGICAL GI BLEED [id number] 10/22/2013 07:21:00 10/22/2013 23:59:59 CLS Outpatient DILMA CA MD [facility] PREOP RECTAL BLEEDING [id number] 09/11/2013 13:36:00 10/13/2013 00:01:00 DIS Outpatient GREG BERNARD [facility] ONC [id number] 07/24/2013 10:43:00 07/24/2013 23:59:59 CLS Outpatient GREG BERNARD [facility] RAD F/U OSTEO [id number] 05/06/2013 08:02:00 05/06/2013 23:59:59 CLS Outpatient KEARA MAR ROLL OFF DRIVER [facility] RAD BREAST CA [id number] 02/26/2013 09:31:00 03/08/2013 00:01:00 DIS Outpatient GREG BERNARD [facility] ONC [id number] 03/04/2013 09:19:00 03/04/2013 23:59:59 CLS Outpatient KEARA MAR ROLL OFF DRIVER [facility] ONC [id number] 03/22/2018 16:35:00 Document Registration [id number] 05/18/2015 15:01:00 Document Registration [id number] 12/04/2012 10:28:00 Document Registration [id number] 06/18/2012 05:56:00 Document Registration [id number] 06/16/2012 09:12:00 Document Registration [id number] 06/05/2012 13:17:00 Document Registration [id number] 05/29/2012 13:02:00 Document Registration [id number] 01/23/2012 09:18:00 Document Registration [id number] 01/22/2012 08:12:00 Document Registration [id number] 01/18/2012 13:51:00 Document Registration [id number] 01/11/2012 14:00:00 Document Registration [id number] 01/09/2012 14:48:00 Document Registration [id number] 12/06/2011 13:35:00 Document Registration [id number] 07/05/2011 13:53:00 Document Registration [id number] 06/28/2011 11:12:00 Document Registration [id number] 05/31/2011 10:49:00 Document Registration [id number] 11/30/2010 10:40:00 Document Registration [id number] 06/28/2010 10:30:00 Document Registration [id number] 06/24/2010 06:55:00 Document Registration [id number] 06/18/2010 15:39:00 Document Registration [id number] 06/17/2010 07:32:00 Document Registration [id number] 06/01/2010 08:54:00 Document Registration [id number] 11/30/2009 09:30:00 Document Registration [id number] 03/14/2015 13:39:56 ACT Document Registration
== END 2018-03-22 17:21 | disposition home or self-care (01) ==
LOC: EDUNIT# 15:45 → ER 15:46
DX: R09.82 Postnasal drip (principal); J44.9 Chronic obstructive pulmonary disease, unspecified; I25.10 Atherosclerotic heart disease of native coronary artery without angina pectoris; I25.2 Old myocardial infarction; K21.9 Gastro-esophageal reflux disease without esophagitis; E03.9 Hypothyroidism, unspecified; Z85.3 Personal history of malignant neoplasm of breast; Z87.19 Personal history of other diseases of the digestive system; Z87.442 Personal history of urinary calculi; Z95.5 Presence of coronary angioplasty implant and graft; Z88.0 Allergy status to penicillin; Z88.2 Allergy status to sulfonamides; Z88.8 Allergy status to other drugs, medicaments and biological substances; Z86.711 Personal history of pulmonary embolism
CPT/HCPCS: 87430; 99283

== ENCOUNTER 2018-04-24 13:51 | Outpatient (RCR) | payer MEDICARE ==
[2018-02-27 13:08] LABS: BASOPHILS # (AUTO) 0.1 10^3/uL (0.0-0.1); BASOPHILS % (AUTO) 1 % (0-10); EOSINOPHILS # (AUTO) 0.4 10^3/uL (0.0-0.3); EOSINOPHILS % (AUTO) 6 % (0-10); HEMATOCRIT 33 % (35-52); HEMOGLOBIN 10.1 G/DL (11.5-16.0); LYMPHOCYTES # (AUTO) 1.3 X 10^3 (1.0-4.0); LYMPHOCYTES % (AUTO) 20 % (12-44); MEAN CORPUSCULAR HEMOGLOBIN 28 PG (25-34); MEAN CORPUSCULAR HGB CONC 31 G/DL (32-36); MEAN CORPUSCULAR VOLUME 91 FL (80-99); MEAN PLATELET VOLUME 10.8 FL (7.4-10.4); MONOCYTES # (AUTO) 0.6 X 10^3 (0.0-1.0); MONOCYTES % (AUTO) 10 % (0-12); NEUTROPHILS % (AUTO) 64 % (42-75); PLATELET COUNT 262 10^3/uL (130-400); RED BLOOD COUNT 3.65 10^6/uL (4.35-5.85); RED CELL DISTRIBUTION WIDTH 14.2 % (10.0-14.5); WHITE BLOOD COUNT 6.2 10^3/uL (4.3-11.0)
[2018-02-27 13:30] LABS: ALANINE AMINOTRANSFERASE 14 U/L (0-55); ALKALINE PHOSPHATASE 84 U/L (40-136); BILIRUBIN,TOTAL 0.4 MG/DL (0.1-1.0); BUN/CREATININE RATIO 21; CALCIUM 9.8 MG/DL (8.5-10.1); CARBON DIOXIDE 28 MMOL/L (21-32); CHLORIDE 105 MMOL/L (98-107); GFR ESTIMATED > 60; GLUCOSE 120 MG/DL (70-105); SODIUM 142 MMOL/L (135-145)
[~2018-04-24 13:51] MED LIST changes: +FERRIC CARBOXYMALTOSE (CANCER) 750 MG in NS (IVPB) CANCER CENTER 250 ML IV SCH
[2018-04-24 14:16] LABS: BASOPHILS % (AUTO) 0 % (0-10); EOSINOPHILS # (AUTO) 0.5 10^3/uL (0.0-0.3); EOSINOPHILS % (AUTO) 7 % (0-10); HEMATOCRIT 38 % (35-52); HEMOGLOBIN 12.3 G/DL (11.5-16.0); LYMPHOCYTES % (AUTO) 15 % (12-44); MEAN CORPUSCULAR HEMOGLOBIN 29 PG (25-34); MEAN CORPUSCULAR HGB CONC 32 G/DL (32-36); MEAN CORPUSCULAR VOLUME 91 FL (80-99); MEAN PLATELET VOLUME 11.4 FL (7.4-10.4); MONOCYTES # (AUTO) 0.8 X 10^3 (0.0-1.0); MONOCYTES % (AUTO) 11 % (0-12); NEUTROPHILS # (AUTO) 4.7 X 10^3 (1.8-7.8); NEUTROPHILS % (AUTO) 67 % (42-75); PLATELET COUNT 204 10^3/uL (130-400); RED CELL DISTRIBUTION WIDTH 15.3 % (10.0-14.5)
[2018-04-24 14:32] LABS: ALANINE AMINOTRANSFERASE 20 U/L (0-55); ALBUMIN 3.9 GM/DL (3.2-4.5); ALKALINE PHOSPHATASE 94 U/L (40-136); BILIRUBIN,TOTAL 0.3 MG/DL (0.1-1.0); BUN/CREATININE RATIO 24; CALCIUM 10.1 MG/DL (8.5-10.1); CARBON DIOXIDE 29 MMOL/L (21-32); CHLORIDE 105 MMOL/L (98-107); CREATININE SERUM 0.66 MG/DL (0.60-1.30); GFR ESTIMATED > 60; GLUCOSE 112 MG/DL (70-105); SODIUM 141 MMOL/L (135-145); TOTAL PROTEIN 7.2 GM/DL (6.4-8.2)
[2018-04-24 15:18] LABS: BILIRUBIN,URINE NEGATIVE (NEGATIVE); CLARITY,URINE CLEAR; COLOR,URINE YELLOW; GLUCOSE, URINE (UA) NEGATIVE (NEGATIVE); KETONES,URINE NEGATIVE (NEGATIVE); LEUKOCYTE ESTERASE ,URINE 2+ (NEGATIVE); NITRITE,URINE NEGATIVE (NEGATIVE); PH,URINE 7 (5-9); PROTEIN,URINE 2+ (NEGATIVE); UROBILINOGEN,URINE 4 MG/DL (NORMAL)
[2018-04-24 15:26] LABS: AMORPHOUS SEDIMENT,UR FEW AMOR URATES /LPF; BACTERIA,URINE TRACE /HPF; RBC,URINE TNTC /HPF
== END 2018-05-28 | disposition home or self-care (01) ==
LOC: ONC 13:51
PROVIDERS: ATTEND Internal Medicine Hematology & Oncology
DX: Z08 Encounter for follow-up examination after completed treatment for malignant neoplasm (principal); Z85.3 Personal history of malignant neoplasm of breast; M81.0 Age-related osteoporosis without current pathological fracture; D50.0 Iron deficiency anemia secondary to blood loss (chronic); K57.92 Diverticulitis of intestine, part unspecified, without perforation or abscess without bleeding; Q27.30 Arteriovenous malformation, site unspecified; K12.1 Other forms of stomatitis; Z79.899 Other long term (current) drug therapy; Z92.3 Personal history of irradiation
CPT/HCPCS: 80053; 81000; 82728; 85025; 87088; 96365; 99213

== ENCOUNTER 2018-06-17 10:58 | Outpatient (RCR) | payer MEDICARE ==
[~2018-06-17 10:58] MED LIST changes: -FERRIC CARBOXYMALTOSE (CANCER) 750 MG in NS (IVPB) CANCER CENTER 250 ML IV SCH
[2018-06-17 11:11] LABS: BASOPHILS % (AUTO) 1 % (0-10); EOSINOPHILS # (AUTO) 0.4 10^3/uL (0.0-0.3); EOSINOPHILS % (AUTO) 6 % (0-10); HEMATOCRIT 38 % (35-52); HEMOGLOBIN 12.2 G/DL (11.5-16.0); LYMPHOCYTES # (AUTO) 1.2 X 10^3 (1.0-4.0); LYMPHOCYTES % (AUTO) 19 % (12-44); MEAN CORPUSCULAR HEMOGLOBIN 29 PG (25-34); MEAN CORPUSCULAR HGB CONC 32 G/DL (32-36); MEAN CORPUSCULAR VOLUME 91 FL (80-99); MONOCYTES # (AUTO) 0.7 X 10^3 (0.0-1.0); MONOCYTES % (AUTO) 12 % (0-12); NEUTROPHILS # (AUTO) 3.7 X 10^3 (1.8-7.8); NEUTROPHILS % (AUTO) 62 % (42-75); PLATELET COUNT 198 10^3/uL (130-400); RED BLOOD COUNT 4.18 10^6/uL (4.35-5.85); RED CELL DISTRIBUTION WIDTH 15.3 % (10.0-14.5)
[2018-06-17 11:33] LABS: ALANINE AMINOTRANSFERASE 19 U/L (0-55); ALKALINE PHOSPHATASE 81 U/L (40-136); BILIRUBIN,TOTAL 0.6 MG/DL (0.1-1.0); BUN/CREATININE RATIO 25; CALCIUM 9.8 MG/DL (8.5-10.1); CARBON DIOXIDE 28 MMOL/L (21-32); CHLORIDE 105 MMOL/L (98-107); CREATININE SERUM 0.67 MG/DL (0.60-1.30); GFR ESTIMATED > 60; GLUCOSE 96 MG/DL (70-105); POTASSIUM 4.2 MMOL/L (3.6-5.0); SODIUM 140 MMOL/L (135-145); TOTAL PROTEIN 7.1 GM/DL (6.4-8.2)
[2018-09-16 10:41] LABS: ABSOLUTE RETIC # 42 10e9/L (24-90); BASOPHILS % (AUTO) 1 % (0-10); EOSINOPHILS # (AUTO) 0.3 10^3/uL (0.0-0.3); EOSINOPHILS % (AUTO) 4 % (0-10); HEMATOCRIT 40 % (35-52); HEMOGLOBIN 12.5 G/DL (11.5-16.0); LYMPHOCYTES # (AUTO) 0.9 X 10^3 (1.0-4.0); LYMPHOCYTES % (AUTO) 14 % (12-44); MEAN CORPUSCULAR HEMOGLOBIN 30 PG (25-34); MEAN CORPUSCULAR HGB CONC 31 G/DL (32-36); MEAN CORPUSCULAR VOLUME 95 FL (80-99); MEAN PLATELET VOLUME 10.7 FL (7.4-10.4); MONOCYTES # (AUTO) 0.6 X 10^3 (0.0-1.0); MONOCYTES % (AUTO) 10 % (0-12); NEUTROPHILS # (AUTO) 4.7 X 10^3 (1.8-7.8); NEUTROPHILS % (AUTO) 72 % (42-75); PLATELET COUNT 237 10^3/uL (130-400); RED BLOOD COUNT 4.21 10^6/uL (4.35-5.85); WHITE BLOOD COUNT 6.5 10^3/uL (4.3-11.0)
[2018-09-16 11:04] LABS: ALANINE AMINOTRANSFERASE 19 U/L (0-55); ALBUMIN 3.8 GM/DL (3.2-4.5); ALKALINE PHOSPHATASE 95 U/L (40-136); BILIRUBIN,TOTAL 0.5 MG/DL (0.1-1.0); BUN/CREATININE RATIO 22; CALCIUM 9.6 MG/DL (8.5-10.1); CARBON DIOXIDE 30 MMOL/L (21-32); CHLORIDE 106 MMOL/L (98-107); CREATININE SERUM 0.79 MG/DL (0.60-1.30); GFR ESTIMATED > 60; GLUCOSE 78 MG/DL (70-105); POTASSIUM 4.1 MMOL/L (3.6-5.0); SODIUM 144 MMOL/L (135-145); TOTAL PROTEIN 6.9 GM/DL (6.4-8.2)
== END 2018-09-15 | disposition home or self-care (01) ==
LOC: ONC 10:58
PROVIDERS: ATTEND Internal Medicine Hematology & Oncology
DX: Z08 Encounter for follow-up examination after completed treatment for malignant neoplasm (principal); Z85.3 Personal history of malignant neoplasm of breast; D50.0 Iron deficiency anemia secondary to blood loss (chronic); M81.0 Age-related osteoporosis without current pathological fracture; K57.92 Diverticulitis of intestine, part unspecified, without perforation or abscess without bleeding; K12.1 Other forms of stomatitis; Z92.3 Personal history of irradiation
CPT/HCPCS: 36415; 80053; 82728; 85025; 99213

== ENCOUNTER 2018-09-16 10:20 | Outpatient (RCR) | payer MEDICARE ==
[2018-09-16 10:41] LABS: ABSOLUTE RETIC # 42 10e9/L (24-90); BASOPHILS % (AUTO) 1 % (0-10); EOSINOPHILS # (AUTO) 0.3 10^3/uL (0.0-0.3); EOSINOPHILS % (AUTO) 4 % (0-10); HEMATOCRIT 40 % (35-52); HEMOGLOBIN 12.5 G/DL (11.5-16.0); LYMPHOCYTES # (AUTO) 0.9 X 10^3 (1.0-4.0); LYMPHOCYTES % (AUTO) 14 % (12-44); MEAN CORPUSCULAR HEMOGLOBIN 30 PG (25-34); MEAN CORPUSCULAR HGB CONC 31 G/DL (32-36); MEAN CORPUSCULAR VOLUME 95 FL (80-99); MEAN PLATELET VOLUME 10.7 FL (7.4-10.4); MONOCYTES # (AUTO) 0.6 X 10^3 (0.0-1.0); MONOCYTES % (AUTO) 10 % (0-12); NEUTROPHILS # (AUTO) 4.7 X 10^3 (1.8-7.8); NEUTROPHILS % (AUTO) 72 % (42-75); PLATELET COUNT 237 10^3/uL (130-400); WHITE BLOOD COUNT 6.5 10^3/uL (4.3-11.0)
[2018-09-16 11:04] LABS: ALANINE AMINOTRANSFERASE 19 U/L (0-55); ALBUMIN 3.8 GM/DL (3.2-4.5); ALKALINE PHOSPHATASE 95 U/L (40-136); BILIRUBIN,TOTAL 0.5 MG/DL (0.1-1.0); BUN/CREATININE RATIO 22; CALCIUM 9.6 MG/DL (8.5-10.1); CARBON DIOXIDE 30 MMOL/L (21-32); CHLORIDE 106 MMOL/L (98-107); CREATININE SERUM 0.79 MG/DL (0.60-1.30); GFR ESTIMATED > 60; GLUCOSE 78 MG/DL (70-105); POTASSIUM 4.1 MMOL/L (3.6-5.0); SODIUM 144 MMOL/L (135-145); TOTAL PROTEIN 6.9 GM/DL (6.4-8.2)
== END 2018-12-12 15:19 | disposition home or self-care (01) ==
LOC: ONC 10:20
PROVIDERS: ATTEND Internal Medicine Hematology & Oncology
DX: Z08 Encounter for follow-up examination after completed treatment for malignant neoplasm (principal); Z85.3 Personal history of malignant neoplasm of breast; M81.0 Age-related osteoporosis without current pathological fracture; D50.0 Iron deficiency anemia secondary to blood loss (chronic); Z92.3 Personal history of irradiation; Z79.899 Other long term (current) drug therapy
CPT/HCPCS: 80053; 82728; 83540; 85025; 85045; 99213

== ENCOUNTER 2019-01-14 00:07 | Emergency (ER) | payer MEDICARE ==
[~2019-01-14] VITALS: Ht 152.4 cm; Wt 54.4 kg
[2019-01-14] MEDS ORDERED: KETOROLAC 60 MG/2 ML VIAL IM STA (00:35)
[2019-01-14] MEDS ORDERED: CYCLOBENZAPRINE 10 MG (FLEXERIL) TAB PO SCH (00:45)
--- NOTE | 2019-01-14 01:44 | ED Back Pain ---
General Chief Complaint: Hip/Pelvic Problems Stated Complaint: RT HIP PAIN,BACK PAIN TAKES HER BREATH AWAY X2 WKS Nursing Triage Note: GRANDDAUGHTER PRESENTED TO REGISTRATION FOR W/C FOR PT. PT TO ED ROOM 7 VIA W/C AND HOME O2. C/O FALL LAST SATURDAY THEN NO FURTHER COMPLAINTS. TONIGHT WHILE TWISTING TO GET INTO LIFT CHAIR SHE FELT PAIN TO RIGHT HIP. Nursing Sepsis Screen: No Definite Risk Source of Information: Patient, Family (GRAND DAUGHTER) History of Present Illness Date Seen by Provider: January 14, 2019 Time Seen by Provider: 00:25 Initial Comments PT ARRIVES VIA POV FROM HOME, WANTS WHEELCHAIR AND ASSIST OUT OF VEHICLE ON ARRIVAL PT HAS CHRONIC BACK AND HIP PAIN PAIN HAS BEEN WORSE FOR THE LAST 2 WEEKS STATES SHE FELL ON SATURDAY MORNING, BUT DID NOT HAVE ANY PAIN, AND HAS BEEN DOING NORMAL ACTIVITIES--DID NOT SEEK CARE UNTIL TONIGHT STATES TONIGHT, SHE CHANGED POSITION IN HER LIFT CHAIR, SHE HAD INCREASE IN PAIN IN RIGHT HIP/SI JOINT AREA OCCURRED AROUND 2200 TONIGHT NO RADIATION OF PAIN NO PARESTHESIAS OR MOTOR DEFICITS NO CHANGE IN BOWEL OR BLADDER FUNCTION HAS NOT TAKEN ANYTHING FOR PAIN PT HAS HAD MULTIPLE "SPONTANEOUS" BREAKS IN BONES. PT NORMALLY AMBULATES WITH A WALKER PT LIVES AT HOME WITH Other Comments PCP: LAVINIA THURMAN Allergies and Home Medications Allergies Coded Allergies: Penicillins (Unverified Allergy, Unknown, 08/16/16) lisinopril (Unverified Allergy, Unknown, 08/16/16) sulfamethoxazole (Unverified Allergy, Unknown, 08/16/16) trimethoprim (Unverified Allergy, Unknown, 08/16/16) Home Medications Albuterol Sulfate 2.5 Mg/3 Ml Vial.neb, 2.5 MG NEB Q4H PRN for SHORTNESS OF BREATH, (Reported) Albuterol Sulfate 1 Puff Puff, 2 PUFF INH Q4H PRN for SHORTNESS OF BREATH, ( Reported) Apixaban 2.5 Mg Tablet, 2.5 MG PO BID Please start on Saturday 02/10 Prescribed by: ESTELITA YOUNG on 02/04/18 0831 Cholecalciferol 5,000 Unit Capsule, 5,000 UNIT PO DAILY, (Reported) Cyclobenzaprine HCl 5 Mg Tablet, 5 MG PO Q8H Prescribed by: MELBA SORIANO on 5/8/19 0222 Levothyroxine Sodium 200 Mcg Tablet, 200 MCG PO DAILY, (Reported) Pantoprazole Sodium 40 Mg Tablet.dr, 40 MG PO DAILY Prescribed by: ESTELITA YOUNG on 05/16/17 1255 Sertraline Hcl 100 Mg Tablet, 50 MG PO DAILY, (Reported) TAKES 1/2 (100MG) TABLET DAILY Tramadol HCl 50 Mg Tablet, 50 MG PO Q4H PRN for PAIN-MODERATE Prescribed by: MELBA SORIANO on 01/14/19221 Patient Home Medication List Home Medication List Reviewed: Yes Review of Systems Constitutional: no symptoms reported Gastrointestinal: no symptoms reported Genitourinary: no symptoms reported Musculoskeletal: see HPI, back pain, joint pain Skin: no symptoms reported Psychiatric/Neurological: No Symptoms Reported Past Xuwewsz-Lnuaet-Mjsper Hx Patient Social History Alcohol Use: Denies Use Recreational Drug Use: No Smoking Status: Never a Smoker 2nd Hand Smoke Exposure: No Recent Foreign Travel: No Contact w/Someone Who Travel: No Recent Infectious Disease Expo: No Recent Hopitalizations: No Immunizations Up To Date Date of Pneumonia Vaccine: Jun 09, 2010 Date of Influenza Vaccine: Aug 10, 2013 Seasonal Allergies Seasonal Allergies: No Past Medical History Surgeries: Yes (CARDIAC CATHS--STENTS X 2; KIDNEY STONE REMOVAL; LEFT BREAST LUMPECTOMY; RIGHT HIP REPLACEMENT; LEFT HIP/FEMUR FX/ORIF; ) Breast, Cardiac, Coronary Stent, Orthopedic, Renal Respiratory: Yes (O2 AT HS; P.E.'S TWICE -ONCE IN 2016 AND AGAIN EARLY 2017) Asthma, Pneumonia, Chronic Bronchitis, Pulmonary Embolism Cardiac: Yes (STENTS X 2; P.E.'S) Chronic Edema/Swelling, Coronary Artery Disease, Deep Vein Thrombosis, Heart Attack, Hypertension Neurological: No Reproductive Disorders: Yes (LEFT ADNEXAL CYST NOTED ON CT 01/2018) Female Reproductive Disorders: 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 History: Menopausal Genitourinary: Yes Kidney Stones Gastrointestinal: Yes (HIATAL HERNIA--SEVERE--NEARLY ENTIRE STOMACH IS HERNIATED INTO CHEST-NOTED ON CT; + GALLSTONES NOTED ON CT) Gastroesophageal Reflux, Gastrointestinal Bleed, Chronic Constipation, Diverticulosis, Hiatal Hernia, Gall Bladder Disease Musculoskeletal: Yes (RIGHT HIP FX/REPLACEMENT; LEFT HIP / FEMUR FX-ORIF; WRIST FRACTURE: VERTEBRAL COMPRESSION FRACTURES) Degenerate Disk Disease, Osteoporosis, Arthritis, Chronic Back Pain, Fractures Endocrine: Yes Hypothyroidsim HEENT: Yes Cataract Cancer: Yes Breast Did You Recieve Any Treatments: Yes (S/P LUMPECTOMY + RADIATION . 10 YEARS AGO) What Type of Treatment Did You: Radiation, Surgical Intervention Psychosocial: No Integumentary: No Blood Disorders: Yes (CHRONIC ANEMIA, P.E.'S ) Adverse Reaction/Blood Tranf: No Family Medical History Cancer 03 FATHER, Onset:50's - 60 Cancer of colon 03 MOTHER, Onset:50's - 60 Cataract 03 FATHER 03 MOTHER, Onset:50's - 60 Cancer Physical Exam Vital Signs Vital Signs - First Documented 01/14/19 00:29 Temp 98.2 Pulse 86 Resp 18 B/P (MAP) 173/109 (130) Pulse Ox 97 O2 Flow Rate 2.00 Capillary Refill : Less Than 3 Seconds Height, Weight, BMI Height: 5'0" Weight: 120lbs. 0oz. [id number]; 21.8 BMI Method:Stated General Appearance: No Apparent Distress, WD/WN, Other (ARRIVES WT HOME O2; PT ABLE TO STAND AND TRANSFER ON OWN. MARKED KYPHOSIS) Neck: Non Tender Cardiovascular: Regular Rate, Rhythm, No Murmur, Normal Peripheral Pulses Respiratory: Normal Breath Sounds, No Accessory Muscle Use, No Respiratory Distress Gastrointestinal: Normal Bowel Sounds, No Organomegaly, No Pulsatile Mass, Non Tender, Soft Back: Decreased Range of Motion, Other (MARKED KYPHOSIS; RIGHT SI JOINT TENDERNESS. 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 Norm as Tested Skin: Normal Color, Warm/Dry, Other (NO EXTERNAL EVIDENCE OF TRAUMA) Progress/Results/Core Measures Results/Orders My Orders Orders - MELBA SORIANO DO Pelvis With Right Hip 2-3views (01/14/19 00:35) Ct Lumbar Spine Wo (01/14/19 00:35) Ct Pelvis Wo (01/14/19 00:35) Ketorolac Injection (Toradol Injection) (01/14/19 00:35) Cyclobenzaprine Tablet (Flexeril Tablet) (01/14/19 00:45) Rx-Cyclobenzaprine Tablet (Rx-Flexeril T (01/14/19 02:23) Rx-Tramadol Hcl (Rx-Ultram) (01/14/19 02:23) Vital Signs/I&O 01/14/19 00:29 Temp 98.2 Pulse 86 Resp 18 B/P (MAP) 173/109 (130) Pulse Ox 97 O2 Flow Rate 2.00 Blood Pressure Mean: 130 Progress Progress Note : Progress Note SYMPTOMS IMPROVED WITH MEDICATIONS AT DISMISSAL, PT STATES SHE HAS AN APPOINTMENT WITH DR. MALIN LATER TODAY Diagnostic Imaging Comments XRAYS PELVIS AND RIGHT HIP--CHRONIC APPEARING CHANGES, ? OLD LEFT PUBIC RAMUS FRACTURE; HARDWARE IN PLACE BILATERALLY. NO ACUTE PROCESS, PENDING RADIOLOGIST REVIEW CT PELVIS--NO ACUTE FRACTURE, CHRONIC/STABLE LEFT PUBIC BONE FX; HARDWARE IN PLACE IN RIGHT HIP AND LEFT FEMUR; LARGE RIGHT PROXIMAL URETERAL CALCULUS; STOOL IN RECTUM WITH RECTAL WALL THICKENING--PER STAT RAD VIA FAX @ 2293 CT LUMBAR SPINE--CHRONIC/STABLE CHANGES OF LUMBAR SPINE AND SACRUM, NO EVIDENCE OF ACUTE FRACTURE; 10 MM CALCULUS RIGHT RENAL PELVIS/PROXIMAL URETER WITH SEVERE RIGHT PELVIECTASIS AND MODERATE RIGHT HYDROURETER Reviewed: Reviewed by Me Departure Impression Primary Impression: Exacerbation of chronic back pain Additional Impressions: Pain of right sacroiliac joint Chronic hip pain Right kidney stone Disposition: 01 HOME, SELF-CARE Condition: Improved Departure-Patient Inst. Referrals: DELONTE MALIN DO (PCP) Primary Care Physician LARRY MONZON MD Patient Instructions: Chronic Pain (DC), Kidney Stones (DC), Low Back Pain (DC ), Sacroiliac Joint Pain (DC), Hip Pain (DC) Add. Discharge Instructions: ALTERNATE ICE AND HEAT TO SORE AREAS AT 20 MINUTE INTERVALS ACTIVITIES TOLERATED FOLLOW UP WITH DR. MALIN THIS WEEK FOR RECHECK ON BACK FOLLOW UP WITH DR. MONZON THIS WEEK FOR FURTHER CARE OF KIDNEY STONE. All discharge instructions reviewed with patient and/or family. Voiced understanding. Scripts Tramadol HCl (Ultram) 50 Mg Tablet 50 MG PO Q4H PRN for PAIN-MODERATE for 3 Days, TAB Prov: MELBA SORIANO DO 01/14/19 Cyclobenzaprine HCl (Cyclobenzaprine HCl) 5 Mg Tablet 5 MG PO Q8H for Muscle Cramps, #15 TAB Prov: MELBA SORIANO DO 01/14/19 MELBA SORIANO DO January 14, 2019 01:44
[2019-01-14] MEDS ORDERED: TRAM-42 PO (02:22)
[2019-01-14] MEDS ORDERED: CYCL5TAB PO (02:22)
[2019-01-14] MEDS ORDERED: RX-CYCLOBENZAPRINE 10 MG (FLEXERIL) TAB PPK#3 PO STA (02:23)
[2019-01-14] MEDS ORDERED: RX-TRAMADOL 50 MG (ULTRAM) TAB PPK#4 PO STA (02:23)
[2019-01-14 02:30] VITALS: BP 150/78
--- NOTE | 2019-01-14 07:12 | Diagnostic Imaging Report ---
Indication: Recent fall. Right hip pain. Three views of the pelvis and right hip shows a right hip prosthesis in place. No loosening is evident. No fracture, dislocation or other acute abnormality is seen. There is slight irregularity of the inferior ramus on the left which may be residual of old fracture. Acute fracture at this site cannot totally be excluded. Impression: There is slight irregularity of the inferior pubic ramus on the left. The right hip prosthesis appears intact. Dictated by: Dictated on workstation # [id number]
--- NOTE | 2019-01-14 07:20 | Diagnostic Imaging Report ---
PROCEDURE: CT lumbar spine without contrast. TECHNIQUE: Multiple contiguous axial images were obtained through the lumbar spine without the use of intravenous contrast. Sagittal and coronal reformations were then performed. Auto Exposure Controls were utilized during the CT exam to meet ALARA standards for radiation dose reduction. INDICATION: New onset of right hip pain. Comparison with 02/03/2018. FINDINGS: There is old compression fracture involving L1 through L3 with mild retropulsion of L1 endplates. No acute fractures are seen. There is generalized osteopenia. There is old insufficiency fracture of the sacrum. The paraspinal soft tissues appear normal. There is noted calculus in right renal pelvis with moderate hydronephrosis. IMPRESSION: 1. Old compression fractures with no acute spinal abnormalities. 2. Moderate hydronephrosis with approximately 1 cm stone in the right renal pelvis. Dictated by: Dictated on workstation # [id number]
--- NOTE | 2019-01-14 07:22 | Diagnostic Imaging Report ---
PROCEDURE: CT pelvis without contrast. TECHNIQUE: Multiple contiguous axial images were obtained through the pelvis without the use of intravenous contrast. Sagittal and coronal reformations were performed. Auto Exposure Controls were utilized during the CT exam to meet ALARA standards for radiation dose reduction. INDICATION: Fall, right hip pain. Abnormal x-ray of the pelvis. FINDINGS: There is some irregularity of the inferior ramus on the left consistent with old healed fracture with no acute fracture at this site or elsewhere. Symphysis pubis and sacroiliac joints are not widened. No abnormality of the right hip prosthesis is seen. No acute abnormality within the pelvis is seen. There is a calculus in the lower pole of the right kidney and in the proximal right ureter that are incompletely visualized. IMPRESSION: No acute abnormality is seen within the pelvis. There are urinary tract stones present on the right that are incompletely visualized. Dictated by: Dictated on workstation # [id number]
== END 2019-01-14 02:33 | disposition home or self-care (01) ==
LOC: EDUNIT# 00:07 → ER 00:10
DX: M54.9 Dorsalgia, unspecified (principal); M53.3 Sacrococcygeal disorders, not elsewhere classified; M25.551 Pain in right hip; G89.29 Other chronic pain; N39.0 Urinary tract infection, site not specified; J44.9 Chronic obstructive pulmonary disease, unspecified; I25.10 Atherosclerotic heart disease of native coronary artery without angina pectoris; I25.2 Old myocardial infarction; I10 Essential (primary) hypertension; K21.9 Gastro-esophageal reflux disease without esophagitis; M81.0 Age-related osteoporosis without current pathological fracture; E03.9 Hypothyroidism, unspecified; D63.8 Anemia in other chronic diseases classified elsewhere; Z80.0 Family history of malignant neoplasm of digestive organs; Z92.21 Personal history of antineoplastic chemotherapy; Z85.3 Personal history of malignant neoplasm of breast; Z87.19 Personal history of other diseases of the digestive system; Z86.718 Personal history of other venous thrombosis and embolism; Z86.711 Personal history of pulmonary embolism; Z88.0 Allergy status to penicillin; Z88.2 Allergy status to sulfonamides; Z88.8 Allergy status to other drugs, medicaments and biological substances; Z79.01 Long term (current) use of anticoagulants; Z95.5 Presence of coronary angioplasty implant and graft; Z87.442 Personal history of urinary calculi; Z96.643 Presence of artificial hip joint, bilateral; Z90.12 Acquired absence of left breast and nipple; Z99.81 Dependence on supplemental oxygen; Z87.01 Personal history of pneumonia (recurrent)
CPT/HCPCS: 72131; 72192; 96372

== ENCOUNTER → 2019-01-22 | Outpatient (CLI) | payer MEDICARE ==
[~2019-01-22] MED LIST changes: +CYCL5TAB PO; +TRAM-42 PO
--- NOTE | 2019-01-22 14:25 | Diagnostic Imaging Report ---
INDICATION: Right-sided kidney stone. TIME OF EXAM: 01:26 p.m. FINDINGS: Ovoid calculus noted on recent CT is again noted and are likely located in the proximal right ureter. This measures 17 mm x 7 mm. No other ureteral calculi are seen. Bowel gas pattern is unremarkable. There are postop changes to both hips. IMPRESSION: Proximal right ureteric calculus. Dictated by: Dictated on workstation # [id number]
== END ==
LOC: RAD 13:15
PROVIDERS: ATTEND Urology
DX: N20.2 Calculus of kidney with calculus of ureter (principal); Z98.890 Other specified postprocedural states
CPT/HCPCS: 74018

== ENCOUNTER → 2019-01-23 | Outpatient (CLI) | payer MEDICARE ==
--- NOTE | 2019-01-23 10:48 | Diagnostic Imaging Report ---
PROCEDURE: CT abdomen and pelvis without contrast. TECHNIQUE: Multiple contiguous axial images were obtained through the abdomen and pelvis without the use of intravenous contrast. Auto Exposure Controls were utilized during the CT exam to meet ALARA standards for radiation dose reduction. INDICATION: Kidney stones. Exam compared with study 02/03/2018. A dominant right renal calculus is migrated distally and is now believed to be obstructing at the level of the ureteropelvic junction. That stone in axial plane measured 10.8 mm x 8.8 mm with a cephalocaudal or longitudinal length of 15.2 mm. Previous dimensions were 10.2 x 0.5 x 1.0 cm. There is a moderate degree of hydronephrosis proximally as a new finding. Multiple additional nonobstructing intrarenal stones are present with calculus burden in the lower pole calyces of the right kidney also having increased. The evaluation of the bladder limited by artifact from bilateral hip surgery. No appreciable bladder or UVJ stone. There is a stool impacting the rectum without evidence for proximal obstruction. Herniation of stomach and perigastric fat at the midline diaphragm posteriorly chronic. Cholelithiasis noted without evidence for acute cholecystitis. The spleen is negative. The adrenals and pancreas are unremarkable. There is aortoiliac atherosclerotic vascular calcifications. There is extensive but noninflamed colonic diverticulosis. Hyperdense thickening presumed intramuscular hematoma at the gluteus musculature most notably at the anika level is present, correlate with any recent injury or fall. No identifiable acute fracture. Multilevel chronic lumbar L1-L2 and L3 endplate compression fractures appeared stable. Impression: Progressive right renal stone burden. The dominant calculus is migrated to now obstruct the ureteropelvic junction with moderate hydronephrosis. Stable nonobstructing left renal calculi. Presumed intramuscular right-sided gluteal hematoma without visualized fracture but we acknowledge detail limited by artifact from hip surgeries. Rectal constipation and likely impaction without cj bowel obstruction. Cholelithiasis without acute cholecystitis. Chronic retrocardiac hernia. Dictated by: Dictated on workstation # [id number]
== END ==
LOC: RAD 09:21
PROVIDERS: ATTEND Urology
DX: N13.2 Hydronephrosis with renal and ureteral calculous obstruction (principal); K80.20 Calculus of gallbladder without cholecystitis without obstruction; K45.8 Other specified abdominal hernia without obstruction or gangrene
CPT/HCPCS: 74176

== ENCOUNTER 2019-04-09 13:16 | Outpatient (RCR) | payer MEDICARE ==
[2019-01-15 15:04] LABS: BASOPHILS % (AUTO) 1 % (0-10); EOSINOPHILS # (AUTO) 0.1 10^3/uL (0.0-0.3); EOSINOPHILS % (AUTO) 2 % (0-10); HEMATOCRIT 33 % (35-52); HEMOGLOBIN 10.4 G/DL (11.5-16.0); LYMPHOCYTES # (AUTO) 0.6 X 10^3 (1.0-4.0); LYMPHOCYTES % (AUTO) 10 % (12-44); MEAN CORPUSCULAR HEMOGLOBIN 31 PG (25-34); MEAN CORPUSCULAR HGB CONC 31 G/DL (32-36); MEAN CORPUSCULAR VOLUME 99 FL (80-99); MEAN PLATELET VOLUME 10.9 FL (7.4-10.4); MONOCYTES # (AUTO) 0.6 X 10^3 (0.0-1.0); MONOCYTES % (AUTO) 10 % (0-12); NEUTROPHILS # (AUTO) 4.8 X 10^3 (1.8-7.8); NEUTROPHILS % (AUTO) 78 % (42-75); PLATELET COUNT 191 10^3/uL (130-400); RED CELL DISTRIBUTION WIDTH 14.8 % (10.0-14.5); WHITE BLOOD COUNT 6.1 10^3/uL (4.3-11.0)
[2019-01-15 15:22] LABS: ALANINE AMINOTRANSFERASE 24 U/L (0-55); ALBUMIN 3.9 GM/DL (3.2-4.5); ALKALINE PHOSPHATASE 113 U/L (40-136); BILIRUBIN,TOTAL 0.6 MG/DL (0.1-1.0); BUN/CREATININE RATIO 29; CALCIUM 10.2 MG/DL (8.5-10.1); CARBON DIOXIDE 29 MMOL/L (21-32); CHLORIDE 104 MMOL/L (98-107); CREATININE SERUM 0.76 MG/DL (0.60-1.30); GFR ESTIMATED > 60; GLUCOSE 99 MG/DL (70-105); POTASSIUM 3.6 MMOL/L (3.6-5.0); SODIUM 141 MMOL/L (135-145)
[2019-04-09 13:32] LABS: BASOPHILS % (AUTO) 1 % (0-10); EOSINOPHILS # (AUTO) 0.4 10^3/uL (0.0-0.3); EOSINOPHILS % (AUTO) 6 % (0-10); HEMATOCRIT 38 % (35-52); HEMOGLOBIN 11.8 G/DL (11.5-16.0); LYMPHOCYTES % (AUTO) 17 % (12-44); MEAN CORPUSCULAR HEMOGLOBIN 30 PG (25-34); MEAN CORPUSCULAR HGB CONC 31 G/DL (32-36); MEAN CORPUSCULAR VOLUME 98 FL (80-99); MEAN PLATELET VOLUME 10.7 FL (7.4-10.4); MONOCYTES # (AUTO) 0.5 X 10^3 (0.0-1.0); MONOCYTES % (AUTO) 8 % (0-12); NEUTROPHILS # (AUTO) 3.9 X 10^3 (1.8-7.8); NEUTROPHILS % (AUTO) 68 % (42-75); PLATELET COUNT 184 10^3/uL (130-400); RED CELL DISTRIBUTION WIDTH 14.3 % (10.0-14.5); WHITE BLOOD COUNT 5.8 10^3/uL (4.3-11.0)
[2019-04-09 13:56] LABS: ALBUMIN 4.3 GM/DL (3.2-4.5); BILIRUBIN,TOTAL 0.3 MG/DL (0.1-1.0); CALCIUM 10.3 MG/DL (8.5-10.1); CREATININE SERUM 0.89 MG/DL (0.60-1.30); POTASSIUM 3.9 MMOL/L (3.6-5.0); TOTAL PROTEIN 7.5 GM/DL (6.4-8.2)
== END 2019-04-15 | disposition home or self-care (01) ==
LOC: ONC 13:16
PROVIDERS: ATTEND Internal Medicine Hematology & Oncology
DX: Z08 Encounter for follow-up examination after completed treatment for malignant neoplasm (principal); Z85.3 Personal history of malignant neoplasm of breast; M81.0 Age-related osteoporosis without current pathological fracture; D50.0 Iron deficiency anemia secondary to blood loss (chronic); Z92.3 Personal history of irradiation; Z79.899 Other long term (current) drug therapy
CPT/HCPCS: 36415; 80053; 82728; 85025; 99213

== ENCOUNTER → 2019-08-19 | Outpatient (CLI) | payer MEDICARE ==
[2019-08-19 10:01] LABS: BASOPHILS % (AUTO) 1 % (0-10); EOSINOPHILS # (AUTO) 0.3 10^3/uL (0.0-0.3); EOSINOPHILS % (AUTO) 6 % (0-10); HEMATOCRIT 37 % (35-52); HEMOGLOBIN 11.6 G/DL (11.5-16.0); LYMPHOCYTES % (AUTO) 24 % (12-44); MEAN CORPUSCULAR HEMOGLOBIN 30 PG (25-34); MEAN CORPUSCULAR HGB CONC 32 G/DL (32-36); MEAN CORPUSCULAR VOLUME 95 FL (80-99); MEAN PLATELET VOLUME 11.1 FL (7.4-10.4); MONOCYTES # (AUTO) 0.4 X 10^3 (0.0-1.0); MONOCYTES % (AUTO) 10 % (0-12); NEUTROPHILS # (AUTO) 2.4 X 10^3 (1.8-7.8); NEUTROPHILS % (AUTO) 59 % (42-75); PLATELET COUNT 194 10^3/uL (130-400); RED CELL DISTRIBUTION WIDTH 13.9 % (10.0-14.5); WHITE BLOOD COUNT 4.1 10^3/uL (4.3-11.0)
[2019-08-19 10:19] LABS: ALANINE AMINOTRANSFERASE 12 U/L (0-55); ALKALINE PHOSPHATASE 88 U/L (40-136); BILIRUBIN,TOTAL 0.4 MG/DL (0.1-1.0); BUN/CREATININE RATIO 20; CARBON DIOXIDE 30 MMOL/L (21-32); CHLORIDE 105 MMOL/L (98-107); CREATININE SERUM 0.83 MG/DL (0.60-1.30); GFR ESTIMATED > 60; GLUCOSE 81 MG/DL (70-105); POTASSIUM 4.1 MMOL/L (3.6-5.0); SODIUM 143 MMOL/L (135-145)
== END ==
LOC: EDSTATUS 04-16 09:51 → ONC 09:52
PROVIDERS: ATTEND Internal Medicine Hematology & Oncology
DX: D50.0 Iron deficiency anemia secondary to blood loss (chronic) (principal); M81.0 Age-related osteoporosis without current pathological fracture; N83.8 Other noninflammatory disorders of ovary, fallopian tube and broad ligament; Z85.3 Personal history of malignant neoplasm of breast
CPT/HCPCS: 80053; 82728; 85025; 99213

== ENCOUNTER → 2020-01-21 | Outpatient (CLI) | payer MEDICARE ==
[2020-01-21 10:52] LABS: BASOPHILS % (AUTO) 1 % (0-10); EOSINOPHILS # (AUTO) 0.3 10^3/uL (0.0-0.3); EOSINOPHILS % (AUTO) 6 % (0-10); HEMATOCRIT 38 % (35-52); HEMOGLOBIN 12.2 G/DL (11.5-16.0); LYMPHOCYTES % (AUTO) 18 % (12-44); MEAN CORPUSCULAR HEMOGLOBIN 30 PG (25-34); MEAN CORPUSCULAR HGB CONC 32 G/DL (32-36); MEAN CORPUSCULAR VOLUME 93 FL (80-99); MEAN PLATELET VOLUME 10.1 FL (7.4-10.4); MONOCYTES # (AUTO) 0.4 X 10^3 (0.0-1.0); MONOCYTES % (AUTO) 7 % (0-12); NEUTROPHILS # (AUTO) 3.8 X 10^3 (1.8-7.8); NEUTROPHILS % (AUTO) 69 % (42-75); PLATELET COUNT 229 10^3/uL (130-400); RED CELL DISTRIBUTION WIDTH 13.6 % (10.0-14.5); WHITE BLOOD COUNT 5.6 10^3/uL (4.3-11.0)
[2020-01-21 11:13] LABS: ALANINE AMINOTRANSFERASE 10 U/L (0-55); ALKALINE PHOSPHATASE 97 U/L (40-136); BILIRUBIN,TOTAL 0.5 MG/DL (0.1-1.0); BUN/CREATININE RATIO 19; CARBON DIOXIDE 29 MMOL/L (21-32); CHLORIDE 103 MMOL/L (98-107); CREATININE SERUM 0.83 MG/DL (0.60-1.30); GFR ESTIMATED > 60; GLUCOSE 112 MG/DL (70-105); POTASSIUM 3.9 MMOL/L (3.6-5.0); SODIUM 140 MMOL/L (135-145); TOTAL PROTEIN 7.4 GM/DL (6.4-8.2)
== END ==
LOC: ONC 10:41
PROVIDERS: ATTEND Internal Medicine Hematology & Oncology
DX: C50.412 Malignant neoplasm of upper-outer quadrant of left female breast (principal); D50.0 Iron deficiency anemia secondary to blood loss (chronic); K31.819 Angiodysplasia of stomach and duodenum without bleeding; M81.0 Age-related osteoporosis without current pathological fracture; J44.9 Chronic obstructive pulmonary disease, unspecified; Z98.890 Other specified postprocedural states
CPT/HCPCS: 80053; 82728; 85025; 99213

== ENCOUNTER → 2021-03-02 | Outpatient (CLI) | payer MEDICARE ==
[~2021-03-02] MED LIST changes: +ASPI-1238 PO; -ASPI-983 PO; -PANT40TA3 PO; +PANT40TA52 PO
[2021-03-02 11:13] LABS: ALANINE AMINOTRANSFERASE 9 U/L (0-55); ALBUMIN 3.6 GM/DL (3.2-4.5); ALKALINE PHOSPHATASE 79 U/L (40-136); BILIRUBIN,TOTAL 0.4 MG/DL (0.1-1.0); BUN/CREATININE RATIO 26; CALCIUM 10.1 MG/DL (8.5-10.1); CARBON DIOXIDE 30 MMOL/L (21-32); CHLORIDE 105 MMOL/L (98-107); CHOLESTEROL 168 MG/DL (< 200); CREATININE SERUM 0.87 MG/DL (0.60-1.30); GFR ESTIMATED > 60; GLUCOSE 82 MG/DL (70-105); HDL CHOLESTEROL 46 MG/DL (40-60); POTASSIUM 3.8 MMOL/L (3.6-5.0); SODIUM 142 MMOL/L (135-145); TOTAL PROTEIN 7.3 GM/DL (6.4-8.2); TRIGLYCERIDES 58 MG/DL (<150); VLDL CHOLESTEROL 12 MG/DL (5-40)
== END ==
LOC: LAB 10:41
PROVIDERS: ATTEND Nurse Practitioner Family
DX: E03.9 Hypothyroidism, unspecified (principal); E78.5 Hyperlipidemia, unspecified; I10 Essential (primary) hypertension
CPT/HCPCS: 36415; 80053; 80061; 84443

== ENCOUNTER → 2021-03-02 | Outpatient (CLI) | payer MEDICARE ==
[2021-03-02 10:52] LABS: BASOPHILS # (AUTO) 0.1 10^3/uL (0.0-0.1); BASOPHILS % (AUTO) 1 % (0-10); EOSINOPHILS # (AUTO) 0.2 10^3/uL (0.0-0.3); EOSINOPHILS % (AUTO) 5 % (0-10); HEMATOCRIT 35 % (35-52); HEMOGLOBIN 10.9 g/dL (11.5-16.0); LYMPHOCYTES # (AUTO) 0.8 10^3/uL (1.0-4.0); LYMPHOCYTES % (AUTO) 17 % (12-44); MEAN CORPUSCULAR HEMOGLOBIN 30 pg (25-34); MEAN CORPUSCULAR HGB CONC 32 g/dL (32-36); MEAN CORPUSCULAR VOLUME 94 fL (80-99); MEAN PLATELET VOLUME 10.4 fL (9.0-12.2); MONOCYTES # (AUTO) 0.5 10^3/uL (0.0-1.0); MONOCYTES % (AUTO) 11 % (0-12); NEUTROPHILS # (AUTO) 3.2 10^3/uL (1.8-7.8); NEUTROPHILS % (AUTO) 67 % (42-75); PLATELET COUNT 239 10^3/uL (130-400); WHITE BLOOD COUNT 4.8 10^3/uL (4.3-11.0)
[2021-03-02 11:14] LABS: SODIUM 142 MMOL/L (135-145)
[2021-03-02 11:15] LABS: ALANINE AMINOTRANSFERASE 9 U/L (0-55); ALBUMIN 3.6 GM/DL (3.2-4.5); ALKALINE PHOSPHATASE 79 U/L (40-136); BILIRUBIN,TOTAL 0.4 MG/DL (0.1-1.0); BUN/CREATININE RATIO 26; CALCIUM 10.1 MG/DL (8.5-10.1); CARBON DIOXIDE 30 MMOL/L (21-32); CHLORIDE 105 MMOL/L (98-107); CREATININE SERUM 0.87 MG/DL (0.60-1.30); GFR ESTIMATED > 60; GLUCOSE 82 MG/DL (70-105); POTASSIUM 3.8 MMOL/L (3.6-5.0); TOTAL PROTEIN 7.3 GM/DL (6.4-8.2)
== END ==
LOC: ONC 10:33
PROVIDERS: ATTEND Internal Medicine Hematology & Oncology
DX: C50.412 Malignant neoplasm of upper-outer quadrant of left female breast (principal); D50.9 Iron deficiency anemia, unspecified; M81.0 Age-related osteoporosis without current pathological fracture; J44.9 Chronic obstructive pulmonary disease, unspecified; E03.9 Hypothyroidism, unspecified; E78.1 Pure hyperglyceridemia
CPT/HCPCS: 80053; 82306; 82728; 85025; G0463; 99213

== ENCOUNTER → 2021-09-13 | Outpatient (CLI) | payer MEDICARE ==
[2021-09-13 13:08] LABS: BASOPHILS # (AUTO) 0.1 10^3/uL (0.0-0.1); BASOPHILS % (AUTO) 1 % (0-10); EOSINOPHILS # (AUTO) 0.3 10^3/uL (0.0-0.3); EOSINOPHILS % (AUTO) 5 % (0-10); HEMATOCRIT 37 % (35-52); HEMOGLOBIN 11.4 g/dL (11.5-16.0); LYMPHOCYTES # (AUTO) 1.1 10^3/uL (1.0-4.0); LYMPHOCYTES % (AUTO) 21 % (12-44); MEAN CORPUSCULAR HEMOGLOBIN 30 pg (25-34); MEAN CORPUSCULAR HGB CONC 31 g/dL (32-36); MEAN CORPUSCULAR VOLUME 95 fL (80-99); MEAN PLATELET VOLUME 10.5 fL (9.0-12.2); MONOCYTES # (AUTO) 0.5 10^3/uL (0.0-1.0); MONOCYTES % (AUTO) 9 % (0-12); NEUTROPHILS # (AUTO) 3.3 10^3/uL (1.8-7.8); NEUTROPHILS % (AUTO) 63 % (42-75); PLATELET COUNT 214 10^3/uL (130-400); WHITE BLOOD COUNT 5.2 10^3/uL (4.3-11.0)
[2021-09-13 13:35] LABS: BILIRUBIN,TOTAL 0.5 MG/DL (0.1-1.0); CREATININE SERUM 0.97 MG/DL (0.60-1.30); POTASSIUM 4.2 MMOL/L (3.6-5.0); TOTAL PROTEIN 7.2 GM/DL (6.4-8.2)
== END ==
LOC: ONC 12:54
PROVIDERS: ATTEND Internal Medicine Hematology & Oncology
DX: C50.412 Malignant neoplasm of upper-outer quadrant of left female breast (principal); D50.9 Iron deficiency anemia, unspecified; J44.9 Chronic obstructive pulmonary disease, unspecified; E03.9 Hypothyroidism, unspecified; M81.0 Age-related osteoporosis without current pathological fracture
CPT/HCPCS: 80053; 82306; 82728; 85025; G0463; 99213